=== PATIENT | female | born 1990 | race Caucasian/White ===

== ENCOUNTER 2023-08-17 14:47 | Outpatient (OUT) | payer MEDICAID, SELFPAY ==
[2023-08-17 15:22] LABS: Basophils Absolute Auto 0.1 10^3/uL (0.0-0.1); Basophils Percent Auto 0.5 % (0.2-2.0); Eosinophils Absolute Auto 0.2 10^3/uL (0.0-0.7); Eosinophils Percent Auto 1.3 % (0.9-7.0); Hematocrit 37.9 % (36.0-48.0); Hemoglobin 12.6 g/dL (12.0-16.0); Immature Granulocytes Abs Auto 0.03 10^3/uL (0.00-0.03); Immature Granulocytes Pct Auto 0.2 % (0.0-0.5); Lymphocytes Absolute Auto 3.2 10^3/uL (1.2-3.8); Lymphocytes Percent Auto 25.1 % (20.5-60.0); Mean Corpuscular HGB Conc 33.2 g/dL (29.9-35.2); Mean Corpuscular Volume 90.2 fL (81.0-99.0); Mean Platelet Volume 10.5 fL (9.5-13.5); Monocytes Absolute Auto 1.1 10^3/uL (0.3-0.8); Monocytes Percent Auto 8.8 % (1.7-12.0); Neutrophils Absolute Auto 8.2 10^3/uL (1.4-6.5); Neutrophils Percent Auto 64.1 % (43.0-75.0); Platelet Count 276 10^3/uL (150-450); Red Cell Distribution Width 12.4 % (11.0-15.0); White Blood Count 12.8 10^3/uL (4.0-11.0)
[2023-08-17 15:32] LABS: Partial Thromboplastin Time 28.2 sec (22.3-36.2); Prothrombin Time 10.6 sec (9.0-11.6)
[2023-08-17 15:35] LABS: Estimated Average Glucose 111 mg/dL; Glycohemoglobin A1C 5.5 % (4.5-6.2)
[2023-08-17 15:44] LABS: Free T4 0.97 ng/dL (0.76-1.46)
[2023-08-17 15:46] LABS: HCG Quantitative <1 mIU/mL; Thyroid Stimulating Hormone 1.048 uIU/mL (0.358-3.740)
--- NOTE | 2023-08-17 16:11 | US_ITS ---
The [address] [address] Patient Name: PERLA IBANEZ MRN: [id number] date: 1990 Sex: F Assigned Patient Location: US Current Patient Location: Accession/Order Number: [id number] Exam Date: 08/17/2023 16:20 Report Date: 08/18/2023 14:12 At the request of: JUAN TOM Procedure: US pelvis w/ transvaginal EXAM: Pelvic ultrasound HISTORY: . MENORRHAGIA WITH REGULAR CYCLE N92.0 . COMPARISON: None. TECHNIQUE: Transabdominal and transvaginal scanning was performed FINDINGS: Scanning of the pelvis demonstrates an anteverted uterus measuring 9.6 x 4.6 x 5.7 cm. Endometrial complex measures 6 mm. Nabothian cyst is noted within the cervix. Right ovary measures 2.5 x 2.3 x 1.9 cm. Color-flow is noted. No masses are noted. Left ovary measures 4.2 x 2 x 2.3 cm. Color-flow is noted. There is a 1.5 x 2 cm simple cyst in the left ovary. No fluid is noted in the cul-de-sac. US/US pelvis w/ transvaginal IMPRESSION: 1. Normal-appearing uterus and endometrial complex. 2. Normal right ovary. 3. 2 cm simple cyst within the left ovary. Electronically authenticated by: JOAO RIVERS Date: 08/18/2023 14:12
== END 2023-08-17 14:48 | disposition home or self-care (01) ==
PROVIDERS: Family Provider Family Medicine; Visit Provider Physician Assistant
DX: N92.0 Excessive and frequent menstruation with regular cycle (principal); N83.292 Other ovarian cyst, left side
CPT/HCPCS: 36415; 76830; 76856; 83036; 84439; 84443; 84702; 85025; 85610; 85730

== ENCOUNTER 2024-02-10 11:10 | Outpatient (RCR) | payer MEDICAID, SELFPAY ==
[2024-02-10 12:31] LABS: Alanine Aminotransferase 18 U/L (14-59); Albumin Globulin Ratio 0.9; Albumin Level 3.8 g/dL (3.4-5.0); Alkaline Phosphatase 62 U/L (46-116); Aspartate Amino Transferase 18 U/L (15-37); Bilirubin Direct 0.1 mg/dL (0.0-0.2); Bilirubin Total 0.5 mg/dL (0.2-1.0); Globulin 4.2 g/dL
[2024-02-11 08:10] LABS: AFP, Serum, Tumor Marker 2.1 ng/mL (0.0-6.4)
== END 2024-02-29 10:43 | disposition home or self-care (01) ==
LOC: LAB 11:10
PROVIDERS: Family Provider Family Medicine; PCP Nurse Practitioner Family
DX: B18.2 Chronic viral hepatitis C (principal)
CPT/HCPCS: 36415; 80076; 82105; 87522

== ENCOUNTER 2024-04-19 13:59 | Emergency (ER) | payer MEDICAID, SELFPAY ==
[2024-04-19 14:05] VITALS: BP 101/69; PULSE 103; TEMP 36.8; O2SAT 100; BMI 32.1
--- NOTE | 2024-04-19 14:11 | ED_ITS ---
HPI - Wound/Laceration General Chief Complaint: Wound/Laceration Stated Complaint: CUT RIGHT HAND Time Seen by Provider: 04/19/24 14:00 Source: patient Mode of arrival: walk-in Limitations: no limitations History of Present Illness HPI narrative: Patient is a 34-year-old [id number] female who presents to the ER for evaluation of a laceration to the palmar aspect of the right hand just proximal to the MCP joint of the thumb. Bleeding is well-controlled. Unknown last tetanus. Patient states she was cutting onions at work and the knife slipped. She does not wish to file a Workmen's Comp. claim. Related Data Allergies Allergy/AdvReac Type Severity Reaction Status Date / Time No Known Drug Allergies Allergy Verified 04/19/24 14:05 Review of Systems ROS Constitutional Denies: fever or chills Respiratory Denies: cough Gastrointestinal Denies: nausea or vomiting Musculoskeletal Reports: extremity pain Integumentary/Breast Denies: rash Neurological Denies: headache, numbness in extremities or weakness in extremities Hematologic/Lymphatic Denies: easy bruising or easy bleeding PFSH PFSH Social History Little interest or pleasure in doing things: not at all Feeling down, depressed, or hopeless: not at all Exam Narrative Exam Narrative: Gen.: Awake, alert, in no distress Head: Normocephalic, atraumatic ENT: Moist mucous membranes Respiratory: No respiratory distress Extremities: Normal flexion and extension of the IP joint of the right thumb. 2 cm laceration noted on the palm of the hand just proximal to the right MCP joint. No subcutaneous tissue exposure. No active bleeding. No visualized tendon or bony exposure. No evidence of tendon laceration. Psych: Normal mood and affect Neuro: No focal neuro deficit Skin: Warm, dry Constitutional Vital Signs, click to edit/add: Last Vital Signs Temp 98.2 F 04/19/24 14:05 Pulse 103 H 04/19/24 14:05 Resp 20 04/19/24 14:05 BP 101/69 04/19/24 14:05 Pulse Ox 100 04/19/24 14:05 O2 Del Method Room Air 04/19/24 14:05 Course Vital Signs Vital signs: Vital Signs Temperature 98.2 F 04/19/24 14:05 Pulse Rate 103 H 04/19/24 14:05 Respiratory Rate 20 04/19/24 14:05 Blood Pressure 101/69 04/19/24 14:05 Pulse Oximetry 100 04/19/24 14:05 Oxygen Delivery Method Room Air 04/19/24 14:05 Temperature 98.2 F 04/19/24 14:05 Pulse Rate 103 H 04/19/24 14:05 Respiratory Rate 20 04/19/24 14:05 Blood Pressure 101/69 04/19/24 14:05 Pulse Oximetry 100 04/19/24 14:05 Oxygen Delivery Method Room Air 04/19/24 14:05 MDM - Wound/Laceration MDM Narrative Medical decision making narrative: X-rays were obtained of the right hand, no evidence of acute process. Laceration was repaired without difficulty. Please see procedure note for details. Tetanus updated in the emergency department. Sutures removed with PCP in 8 to 10 days. Patient was reminded that she can file a Workmen's Comp. claim later if she changes her mind. Wound care encouraged for home. Laceration repair: Done under sterile conditions. The use of Shur-Clens prep the area. Local injection with lidocaine 1% was used, approximately 3 cc. The wound was irrigated copiously with normal saline. The wound was explored there was no evidence of foreign material. The laceration was approximated with 4-0 nylon. 3 simple interrupted sutures were placed. Patient tolerated the procedure well. The patient was neurovascularly intact post. the patient had bacitracin applied to the laceration and a dry sterile dressing was place. The patient will need to follow-up in the next 8-10 days for removal SUPERVISED APC VISIT, PHYSICIAN ATTESTATION: Based on the medical record the care appears appropriate. ? Medical Records Attestation: I reviewed the patient's medical records. Imaging Data XR hand: Attestation: I have reviewed the pertinent imaging results. Discharge Plan Discharge Chief Complaint: Wound/Laceration Clinical Impression: Laceration of right hand Patient Disposition: Home, Self-Care Time of Disposition Decision: 14:15 Condition: Good Print Language: Macedonian Instructions: Laceration (ED) Additional Instructions: Sutures removed in 8-10 days with your doctor or urgent care Referrals: FRANCISCO J JIANG [Primary Care Provider] - 1 week
--- OUTSIDE RECORDS SUMMARY | 2024-04-19 14:15 | XMS_ITS | CCD ---
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 Name Role Phone Unavailable Primary Care Provider UnavailERIKA Cummins Attending Unavailable Unavailable Primary Care Provider UnavailGeovanni Bravo Primary Care Physician [phone] Elise GODINEZ Primary Care Physician [phone] Belén Giles Unavailable Unavailable ROBUCK, TAMARA Martin Attending Unavailable ROBCHAPARRITA, TAMARA Martin Attending Unavailable Kojo CALVIN Attending Unavailable NONE, XXXX Referring Unavailable SALAMPadmini Attending Unavailable KERRYAMPadmini Admitting Unavailable ROBUCK, TAMARA Elise E Attending Unavailable ROBUCK, TAMARA Elise E Admitting Unavailable ROBUCK, TAMARA Martin Attending Unavailable ROBUCK, TAMARA Olivares E Admitting Unavailable Son Oviedo Attending Unavaila ble TABITHA, TAMARA Martin Referring Unavailable KERRYAMPadmini Attending Unavailable ROBUCK, TAMARA Martin Attending Unavailable ROBUCK, TAMARA Martin Attending Unavailable Son Ov[place]o MD Unavailable [phone] LEORA CLEANING Attending Unavailable LEORA CLEANING Attending Unavailable RODDENBERRY, CIARRA E Referring Unavailabl e RODDENBERRY, CIARRA E Referring Unavailabl e RODDENBERRY, CIARRA E Attending Unavailabl e RODDENBERRY, CIARRA E Referring Unavailabl e TAMMY BARRETT Attending Unavailable RODDENBERRY, CIARRA E Referring Unavailabl e RODDENBERRY, CIARRA E Attending Unavailabl e RODDENBERRY, CIARRA E Referring Unavailabl e Allergies Allergy Classification Reported Allergen(s) Allergy Type Date of Onset Reaction(s) Facility (1 source) No Known Medication Allergies; Translations: [No Known Medication Allergies] Propensity to adverse reactions (disorder) [facility] Rep[facility] Medications Current Medications Medication Drug Class(es) Dates Sig (Normalized) Sig (Original) buprenorphine 2 mg / naloxone 0.5 mg sublingual film (20 sources) Partial Opioid Agonist, Opioid Antagonist Start: 06-18-2023 buprenorphine-nal oxone (SUBOXONE) 2-0.5 mg film Dissolve 2 Film under the tongue once daily. 06/18/2023 Active Start: 04-30-2022 Suboxone 8 mg- 2 mg sublingual film 1 film, SubLingual, Daily, Refill(s) 0 Start Date: 04/30/22 Status: Ordered Buprenorphine HCl-Naloxone HCl (SUBOXONE SL) (2 sources) Buprenorphine HCl-Naloxone HCl (SUBOXONE SL) Place 0.8 mg under the tongue 0 Active cyclobenzaprine hydrochloride 10 mg oral tablet (13 sources) Muscle Relaxant Start: 08-28-19 take 1 tablet by mouth twice daily as needed for muscle spasms cyclobenzaprine 10 mg Tab 10 mg = 1 tab(s), Oral, BID, PRN for spasm, # 60 tab(s), Refills(s) 5, Pharmacy: [facility], 173, cm, 08/27/22 14:47:00 EDT, Height/Length Dosing, 138.5, kg, 08/27/22 14:47:00 EDT, Weight Dosing Start Date: 08/27/22 Status: Ordered Start: 06-15-2022 take 1 tablet by dorcas th once daily in the evening as needed for muscle spasms cyclobenzaprine 10 mg Tab 10 mg = 1 tab(s), Oral, qPM, PRN for spasm, # 30 tab(s), Refills(s) 2, Pharmacy: [facility], 173, cm, 06/15/22 14:50:00 EDT, Height/Length Dosing, 144.3, kg, 06/15/22 14:50:00 EDT, Weight Dosing Start Date: 06/15/22 Status: Ordered Start: 05-05-2022 take 1 tablet by dorcas th three times daily as needed for muscle spasms cyclobenzaprine 10 mg Tab 10 mg = 1 tab(s), Oral, TID, PRN for spasm, # 30 tab(s), Refills(s) 1, Pharmacy: [facility], 173, cm, 04/30/22 15:30:00 EST, Height/Length Dosing, 145.8, kg, 04/30/22 15:30:00 EST, Weight Dosing Start Date: 05/05/22 Status: Ordered 0.5 ml dulaglutide 1.5 mg/ml auto-injector (11 sources) GLP-1 Receptor Agonist Start: 06-15-2023 inject 0.75 mg by subcutaneous injection every week TRULICITY 0.75 mg/0.5 mL pen injector Inject 0.75 mg subcutaneously one time a week. 06/15/2023 Active Start: 05-26-2023 inject 1.5 mg by sub cutaneous injection every week Trulicity Pen 1.5 mg/0.5 mL subcutaneous solution 1.5 mg, SubCutaneous, qWeek, # 12 EA, Refills(s) 4, Pharmacy: [facility]/pharmacy #[id number], 173, cm, 04/20/23 16:40:00 EST, Height/Length Dosing, 118.8, kg, 04/20/23 16:40:00 EST, Weight Dosing Start Date: 05/26/23 Status: Ordered Start: 04-20-2023 inject 0.75 mg by toscano bcutaneous injection every week Trulicity Pen 0.75 mg/0.5 mL subcutaneous solution 0.75 mg, SubCutaneous, qWeek, # 12 EA, Refills(s) 3, Pharmacy: [facility]/pharmacy #[id number], 173, cm, 04/20/23 16:40:00 EST, Height/Length Dosing, 118.8, kg, 04/20/23 16:40:00 EST, Weight Dosing Start Date: 04/20/23 Status: Ordered {21 (Ethinyl Estradiol 0.035 MG / norgestimate 0.25 MG Oral Tablet) / 7 (Inert Ingredients 1 MG Oral Tablet) } Pack [Sprintec 28 Day] (2 sources) Progestin, Estrogen Start: 04-20-2023 Sprintec oral tablet 1 tab(s), Oral, Daily, 84 tab(s), Refill(s) 4, [facility]/pharmacy #[id number], 173, cm, 04/20/23 16:40:00 EST, Height/Length Dosing, 118.8, kg, 04/20/23 16:40:00 EST, Weight Dosing Start Date: 04/20/23 Status: Ordered glecaprevir 100 mg / pibrentasvir 40 mg oral tablet (6 sources) Start: 07-29-2023 End: 10-05-2023 take 3 tablets by mouth once daily at mealtime glecaprevir-pibrentasv ir (MAVYRET) 100-40 mg tablet Take 3 tablets by mouth once daily with food. 168 tablet 0 07/29/2023 10/05/2023 Active hydroCHLOROthiazide 25 mg oral tablet (15 sources) Thiazide Diuretic Start: 04-20-2023 take 1 tablet by mouth once daily hydroCHLOROthiazide 25 mg tablet Take 25 mg by mouth once daily. 04/20/2023 Active Start: 08-27-2022 take 1 tablet by dorcas th once daily hydrochlorothiazide 25 mg Tab 25 mg = 1 tab(s), Oral, Daily, # 90 tab(s), Refills(s) 3, Pharmacy: [facility], 173, cm, 08/27/22 14:47:00 EDT, Height/Length Dosing, 138.5, kg, 08/27/22 14:47:00 EDT, Weight Dosing Start Date: 08/27/22 Status: Ordered levonorgestrel 1.5 mg oral tablet (10 sources) Progestin, Progestin-containing Intrauterine Device Start: 04-20-2023 take 1 tablet by mouth once daily levonorgestrel (PLAN B ONE-STEP) 1.5 mg tab Take 1.5 mg by mouth once daily. 04/20/2023 Active lisinopril 40 mg oral tablet (20 sources) Angiotensin Converting Enzyme Inhibitor Start: 05-13-2022 take 1 tablet by mouth once daily lisinopril 30 mg Tab 30 mg = 1 tab(s), Oral, Daily, # 30 tab(s), Refills(s) 1, Pharmacy: [facility], 173, cm, 05/13/22 14:52:00 EDT, Height/Length Dosing, 142.9, kg, 05/13/22 14:52:00 EDT, Weight Dosing Start Date: 05/13/22 Status: Ordered Start: 04-30-2022 take 1 tablet by dorcas th once daily lisinopril 20 mg Tab 20 mg = 1 tab(s), Oral, Daily, # 30 tab(s), Refills(s) 0, Pharmacy: [facility], 173, cm, 04/30/22 15:30:00 EST, Height/Length Dosing, 145.8, kg, 04/30/22 15:30:00 EST, Weight Dosing Start Date: 04/30/22 Status: Ordered Start: 04-30-2022 take 1 tablet by dorcas th once daily lisinopril (ZESTRIL) 40 mg tablet Take 40 mg by mouth once daily. 04/30/2022 Active sulfamethoxazole 800 mg / trimethoprim 160 mg oral tablet (1 source) Dihydrofolate Reductase Inhibitor Antibacterial, Sulfonamide Antimicrobial Start: 10-26-2018 End: 11-05-2018 take 1 tablet by mouth twice daily sulfamethoxazole-trimethoprim (BACTRIM DS) 800-160 MG per tablet Take 1 tablet by mouth 2 times daily for 10 days 20 tablet 0 10/26/2018 11/05/2018 Active Completed/Discontinued Medications Medication Drug Class(es) Dates Sig (Normalized) Sig (Original) cephalexin 500 mg oral capsule (2 sources) Cephalosporin Antibacterial Start: 10-26-2018 End: 11-08-2019 take 1 capsule by mouth four times daily cephALEXin (KEFLEX) 500 MG capsule Take 1 capsule by mouth 4 times daily 40 capsule 0 10/26/2018 11/08/2019 Discontinued (Therapy completed) nitroglycerin 0.4 mg sublingual tablet (2 sources) Nitrate Vasodilator End: 11-08-2019 nitroGLYCERIN (NITROSTAT) 0.[address] 0.4 mg under the tongue every 5 minutes as needed for Chest pain up to max of 3 total doses. If no relief after 1 dose, call 911. 0 11/08/2019 Discontinued (Therapy completed) Problems Active Problems Problem Classification Problem Date Documented Date Episodic/Chronic Anxiety disorders (16 sources) Posttraumatic stress disorder; Translations: [Post-traumatic stress disorder, unspecified] Onset: 04-30-2022 Chronic Contraceptive and procreative management (1 source) Contraception status; Translations: [Encounter for contraceptive management, unspecified] Onset: 04-20-2023 Episodic Diabetes mellitus without complication (5 sources) Impaired fasting glycemia; Translations: [Impaired fasting glucose] Onset: 06-15-2022 Episodic Essential hypertension (20 sources) Essential hypertension; Translations: [Essential (primary) hypertension] Onset: 04-30-2022 Chronic Hepatitis (9 sources) Chronic hepatitis C; Translations: [Chronic viral hepatitis C] Onset: 07-23-2023 07-23-2023 Chronic Hepatitis (9 sources) Viral hepatitis C; Translations: [Unspecified viral hepatitis C without hepatic coma] Onset: 07-30-2022 Episodic Immunizations and screening for infectious disease (3 sources) Hepatitis C antibody test positive 06-04-2022 Episodic Other nervous system disorders (1 source) Paresthesia; Translations: [Paresthesia of skin] Onset: 04-30-2022 Episodic Other nervous system disorders (6 sources) Paresthesia of left lower limb 04-30-2022 Episodic Other nutritional; endocrine; and metabolic disorders (15 sources) Body mass index 40+ - severely obese; Translations: [Body mass index (BMI) 45.0-49.9, adult] Onset: 04-30-2022 Chronic Other nutritional; endocrine; and metabolic disorders (2 sources) Obese class II; Translations: [Body mass index (BMI) 39.0-39.9, adult] Onset: 04-20-2023 Chronic Other nutritional; endocrine; and metabolic disorders (4 sources) Morbid obesity; Translations: [Morbid (severe) obesity due to excess calories] Onset: 04-20-2023 Chronic Other nutritional; endocrine; and metabolic disorders (2 sources) Body mass index 30+ - obesity 04-20-2023 Chronic Other screening for suspected conditions (not mental disorders or infectious disease) (1 source) Encounter for screening for malignant neoplasm of cervix; Translations: [Screening for malignant neoplasm of cervix done] Onset: 10-22-2022 Episodic Residual codes; unclassified (2 sources) Localized edema; Translations: [Localized edema] Onset: 04-30-2022 Episodic Residual codes; unclassified (6 sources) Edema of left lower limb 04-30-2022 Episodic Substance-related disorders (20 sources) Nicotine dependence; Translations: [Nicotine dependence, unspecified, uncomplicated] Onset: 04-30-2022 Chronic Unclassified (1 source) Sprain of right foot; Translations: [Sprain of right foot, initial encounter] Unclassified (3 sources) Cancer cervix screening status 10-22-2022 Unclassified (2 sources) Patient encounter status 04-20-2023 Past or Other Problems Problem Classification Problem Date Documented Da te Episodic/Chronic Skin and subcutaneous tissue infections (1 source) Abscess; Translations: [Abscess] Episodic Viral infection (1 source) Disease caused by 2019-nCoV; Translations: [COVID-19] Results Test Name Value Interpretation Reference Range Facility [facility] 07-30-2023 CNOV Office Visit (GASTA5 ) PERLA SPANN ([id number]) 1990 F Date Time Provider Department 07/30/23 1:30 PM CIARRA COTTON GASTA5 During your visit today, we recorded the following information about you: Temperature Pulse Blood pressure Weight 98.5 degrees 96/minute 122/60 109.8 kg Height 1.727 m Ciarra Cotton APRN.[facility] 08/01/2023 2:23 PM Signed NAME: Perla Spann CLINIC NO: [id number] REFERRING PHYSICIAN: Ciarra Cotton PRESENTING COMPLAINT: HCV follow up HPI: Perla Spann is a 33 year old female with unknown PMHx is here on follow up for chronic HCV. [facility] with me: 07/02/23 At [facility]: IMPRESSION Perla Spann is a 33 year old year old female with unknown PMHx who presents with HCV. Risk factors include IVDU and she is treatment naive. Will obtain updated HCV quant, genotype, and serologic evaluation. Will also obtain updated imaging and Fibroscan for further steatosis/fibrosis staging. PLAN Chronic HCV: - repeat HFP - HCV quant, HCV genotype, HIV 1/2 COMBO - serologic evaluation - RUQ US - Fibroscan Since [facility]: Overall, feeling well States was told locally that given suspicion of cirrhosis from prior workup, should be evaluated for HCV treatment at [facility] LFTs mildly elevated RUQ US with increased echogenicity of liver Mavyret ordered, not yet started ETOH use: Last use 4 yrs ago. Nutrition: does not adhere to specific diet but tries to reduce saturated fat; sodium. With constant right sided abdominal pain 3/10, dull ache Sitting in one position worsens pain With constipation daily Somewhat helps with laxatives Attributes to suboxone use Most recent blood work: 07/23/23 ALP WNL, AST/ALT 53/69 Preserved synthetic liver function Plt WNL Fibroscan today: CAP 227; kpa 10.0, IQR 17% Denies jaundice,nausea, vomiting, diarrhea, hematochezia, hematemesis, ascites, episodes of confusion. IMAGING: RUQ US 07/23/23: IMPRESSION: 1. Increased echogenicity of the liver, compatible with hepatic steatosis. No focal hepatic mass. 2. No sonographic evidence of cholelithiasis or acute cholecystitis. No biliary ductal dilation. 3. Normal sonographic appearance of the spleen. No splenomegaly or focal splenic mass. RESULT: Pancreas: Normal sonographic appearance. Portions obscured: tail Liver: Echotexture: Normal, homogeneous. Echogenicity: Increased Surface contour: Smooth Lesions: None. Biliary: No intrahepatic biliary duct dilation. CBD: 0.4 cm at the hilum. Gallbladder: Normal caliber -Contents: No cholelithiasis -Wall: Normal -Other: No pericholecystic fluid. Right Kidney: The right kidney measures 10.8 cm in craniocaudal dimension. No renal calculus or hydronephrosis is seen. Ascites: None. Spleen: The craniocaudal length of the spleen is 11.5 cm, normal. There are no splenic lesions. The left kidney measures 10.7 cm craniocaudal dimension. No renal calculus or hydronephrosis is seen. REVIEW OF SYSTEMS GENERAL: No unexplained weight changes or fevers. GASTROINTESTINAL: Negative for rectal bleeding or black tarry stools. MUSCULOSKELETAL: Negative for unexplained joint pains, dislocations or fractures. NEUROLOGIC: Negative for unexplained weakness or vertigo. SKIN: Negative for new lesions or rashes. Current Outpatient Medications Medication Sig Dispense Refill glecaprevir-pibrentas vir (MAVYRET) 100-40 mg tablet Take 3 tablets by mouth once daily with food. 168 tablet 0 hydroCHLOROthiazide 25 mg tablet Take 25 mg by mouth once daily. buprenorphine-naloxon e (SUBOXONE) 2-0.5 mg film Dissolve 2 Film under the tongue once daily. TRULICITY 0.75 mg/0.5 mL pen injector Inject 0.75 mg subcutaneously one time a week. lisinopril (ZESTRIL) 40 mg tablet Take 40 mg by mouth once daily. levonorgestrel (PLAN B ONE-STEP) 1.5 mg tab Take 1.5 mg by mouth once daily. No current facility-administered medications for this visit. ALLERGIES No Known Allergies Social History Tobacco Use Smoking status: Never Passive exposure: Never Smokeless tobacco: Current Tobacco comments: Vape Substance Use Topics Alcohol use: Never Drug use: Never No past medical history on file. @SHX@ No family history on file. PHYSICAL EXAM There were no vitals taken for this visit. General Appearance: Well appearing, alert, in no acute distress, well-hydrated, well nourished. Eyes: conjunctiva and sclera normal Abdomen: not distended Extremities: no cyanosis or edema Skin: no jaundice, no spider angiomas, no palmar erythema Neuro:alert, oriented x 3, pleasant and in no acute distress Recent Labs: Hemoglobin (g/dL) Date Value 07/23/2023 13.9 Hematocrit (%) Date Value 07/23/2023 42.8 WBC (k/uL) Date Value 07/23/2023 12.94 Glucose (mg/dL) Date Value 07/23/2023 82 Potassium (mmol/L) Date Value 07/23/2023 4.4 So (more content not included)... Normal [facility] Liver ultrasound attenuation by transient elastographyon 07-30-2023 Patient fasting for 3 hours:Yes Fibroscan was performed on July 30, 2023, by Cristin Buenrostro LPN and results are interpreted by Rebecca Watts APRN.GEOLOGICAL ENGINEER Indication: Hepatitis C Please refer to get images report for individual readings Number of readings: 10 IQR %: 17 E (kpa): 10.0 CAP: 227 Impression The reading was adequate. FS=10.0 kPA. The CAP score is 227 and corresponds to steatosis grade of S0. This reading corresponds: A 43% chance of stage 0-2 fibrosis A 58% chance of stage 3-4 fibrosis (advanced fibrosis) A 20% chance of stage 4 fibrosis (cirrhosis).A kPa >20 indicates a high likelihood of stage 4 fibrosis/cirrhosis, consider further testing to confirm. Rebecca Watts APRN.GEOLOGICAL ENGINEER Hepatitis C Fibroscan Fibrosis Risk <7 kPA = F0-F2 93%, F3+F4 7%, F4 <1% <10 kPA = F0-F2 88%, F3+F4 12%, F4 1.7% 10-15 kPA = F0-F2 43%, F3+F4 58%, F4 20% >15 kPA = F0-F2 16%, F3+F4 84%, F4 63% Grade CAP value up to 237 dB/M corresponds to S0 (< 10 % Fat) CAP value between (238 - 258 dB/M) corresponds to S1 (>/= 11 % Fat) CAP value between (259 - 289 dB/M) corresponds to S2 (>/= 33 % Fat) CAP value > 290dB/M corresponds to S3 (>/= 67 % Fat) stage 0 ( S0:< 10 % steatosis) stage 1 (>/= S1: 11%-33% steatosis) stage 2 (>/= S2: 34%-66% steatosis) stage 3 (>/= S3: > 66% steatosis) Reference Roland Y, Pete Q, Roland T, Marcy J, Roland H, Henrik T. Controlled attenuation parameter for assessment of hepatic steatosis grades: a diagnostic meta-analysis. Int J Clin Exp Med. 2015 Nov 15;8(10):00633-19. PMID: [id number]; PMCID: [id number]. Stephanie M, Margarita LEXI, Rebeccar-Luis M, Mateo F, Salome J, Magdaleno O, Hector F, Ting M, Aubrey G, Re A, Deepti E, Cyn L, Bridgett G, Wenceslao A, Hildebran U, Lombardo S, Herlinda P, Rosalindao V, de Coni V, Jarod M, Sergio OCASIO. Refining the Baveno elastography criteria for the definition of compensated advanced chronic liver disease. J Hepatol. 2020;74(5):6041-3802. doi: 10.1016/j.jhep.2020.1 1.050. Epub 2019Feb 06. PMID: 52816572. [facility] Radiology Study observation (narrative) Leo toscano [facility] 07-29-2023 [facility] Telephone (GASTA5) PERLA SPANN ([id number]) 1990 F Date Time Provider Department 07/29/23 CIARRA COTTON GASTMinh During your visit today, we recorded the following information about you: Anamaria Caal RN 07/29/2023 1:41 PM Signed ----- Message from Ciarra Cotton APRN.GEOLOGICAL ENGINEER sent at 07/29/2023 1:39 PM EDT ----- Kamar, Please advise patient that she does have active hep C. Mavyret has been prescribed and she will be contacted once approved by specialty pharmacy. Mavyret duration is 2 months in total. Mavyret will be taken daily. Please advise to get blood work at the end of each month while on treatment. Her ultrasound indicates fatty liver. WE will obtain the Fibroscan for further evaluation. Please advise to be 3 hours fasting prior to that. The rest of her blood work does not indicate other causes of liver disease which is good news. She is not immune to HAV/HBV; would advise Twinrix vaccine series. We can discuss further at her upcoming visit. Thanks, Anamaria Lind RN 07/29/2023 1:56 PM Signed Nurse called the patient. Patient confirmed name and . Nurse relayed the information to the patient. Patient is worried about having cirrhosis, but nurse informed her that US states fatty liver and the fibroscan will give us another way to test whether there is cirrhosis. Patient expressed understanding and had no questions or concerns. Anamaria Caal RN July 29, 2023 1:55 PM Allergies As of Date: 07/29/2023 (No Known Allergies) Date Reviewed: 07/02/2023 Reviewed by: Anne Jones LPN - Fully Assessed Prescriptions as of 07/29/2023 - glecaprevir-pibrentas vir (MAVYRET) 100-40 mg tablet Take 3 tablets by mouth once daily. Take with food. - hydroCHLOROthiazide 25 mg tablet Take 25 mg by mouth once daily. - buprenorphine-naloxon e (SUBOXONE) 2-0.5 mg film Dissolve 2 Film under the tongue once daily. - TRULICITY 0.75 mg/0.5 mL pen injector Inject 0.75 mg subcutaneously one time a week. - lisinopril (ZESTRIL) 40 mg tablet Take 40 mg by mouth once daily. - levonorgestrel (PLAN B ONE-STEP) 1.5 mg tab Take 1.5 mg by mouth once daily. Problem List As Of Date: 07/29/2023 (None) Encounter Status:Closed by ANAMARIA CAAL on 07/29/23 Normal [facility] ALLA BY IFA WITH REFLEXOrdere d By: Cherri Link on 07-27-2023 Interpretation and review of laboratory results Normal [facility] Nuclear Ab Ql (S) Negative Negative [facility] Comment on above: Anti-nuclear antibod y test is used as an aid in diagnosis of systemic autoimmune diseases. Where positive and clinically warranted, follow-up using disease-specific testing is recommended. Low positive titers are not uncommon with advanced age, certain chronic infections, and malignancies among others. Test methodology: Indirect fluorescence immunoassay (IFA) using HEp-2 cells. [facility] HCV genotype LALITA+probe NomOr dered By: Bryn Gallardo on 07-27-2023 Interpretation and review of laboratory results Abnormal [facility] HEPATITIS C GENOTYPEOrdered By: Bryn Gallardo on 07-27-2023 HCV genotype LALITA+probe Nom Genotype 3 Abnormal [facility] LIVER FIBROSIS AND ACTIVITYo n 07-27-2023 [id number] [Mass/Vol] 390 mg/dL High 110 - 270 mg/dL [facility] ALT [Catalytic activity/Vol] 79 U/L High 10 - 35 U/L [facility] Apolipoprotein A-I [Mass/Vol] 162 mg/dL 124 - PINF mg/dL [facility] Bilirubin [Mass/Vol] 0.6 mg/dL 0.2 - 1 .3 mg/dL [facility] Fibrosis Interpretation Minimal Fibrosis [facility] Comment on above: Fibrosis Interpretat ion Table: FibroTest Score: >=0 and <=0.21 - Metavir Score: F0 No Fibrosis FibroTest Score: >0.21 and <=0.27 - Metavir Score: F0-F1 No Fibrosis FibroTest Score: >0.27 and <=0.31 - Metavir Score: F1 Minimal Fibrosis FibroTest Score: >0.31 and <=0.48 - Metavir Score: F1-F2 Minimal Fibrosis FibroTest Score: >0.48 and <=0.58- Metavir Score: F2 Moderate Fibrosis FibroTest Score: >0.58 and <=0.72 - Metavir Score: F3 Advanced Fibrosis FibroTest Score: >0.72 and <=0.74 - Metavir Score: F3-F4 Advanced Fibrosis FibroTest Score: >0.74 and <=1.00- Metavir Score: F4 Severe Fibrosis Fibrosis stage Ql F1-F2 [facility] Gamma glutamyl transferase [Catalytic activity/Vol] 62 U/L High 6 - 42 U/L [facility] Haptoglobin [Mass/Vol] 159 mg/dL 31 - 238 mg/dL [facility] Interpretation and review of laboratory results Abnormal [facility] Necroinflam Activity Interp Minimal Activity [facility] Comment on above: Necroinflammatory Ac tivity Interpretation Table: ActiTest Score: >=0 and <=0.17 - Metavir Score: A0 No activity ActiTest Score: >0.17 and <=0.29 - Metavir Score: A0-A1 No activity ActiTest Score: >0.29 and <=0.36 - Metavir Score: A1 Minimal activity ActiTest Score: >0.36 and <=0.52 - Metavir Score: A1-A2 Minimal activity ActiTest Score: >0.52 and <=0.60 - Metavir Score: A2 Significant activity ActiTest Score: >0.60 and <=0.62 - Metavir Score: A2-A3 Significant activity ActiTest Score: >0.62 and <=1.00 - Metavir Score: A3 Severe activity Necroinflammatory activity grade Ql A1-A2 [facility] The FibroTest-ActiTest is an algorithmic test developed and patented by [employer]. Testing is compliant with their technical recommendations. The reliability of results is dependent on compliance with the preanalytical and analytical conditions recommended by [employer]. The tests have to be deferred for: acute hemolysis, acute hepatitis, acute inflammation, extra hepatic cholestasis. The advice of a specialist should be sought for interpretation in chronic hemolysis and Gilbert's syndrome. The test interpretation is not validated in liver transplant patients. Isolated extreme values of one of the components should lead to caution in interpreting the results. In case of discordance between a biopsy result and a test, it is recommended to seek advice of a specialist. The causes of these discordances could be due to a flaw of the test or to a flaw in the biopsy: i.e. a liver biopsy has a 33% variability rate for one fibrosis stage. FibroTest is interpretable for chronic hepatitis B and C, alcoholic and non alcoholic steatosis. ActiTest is interpretable for chronic hepatitis B and C. This test was developed and its performance characteristics determined by [facility]'s [facility] [place] ([facility]). It has not been cleared or approved by the FDA. [facility] is regulated under CLIA as qualified to perform high-complexity testing. This test is used for clinical purposes. It should not be regarded as investigational or for research. [facility] Mitochondria Ab IF Ql (S)Ord ered By: Yuli Quiros on 07-27-2023 Mitochondria M2 Ab IA Qn (S) 1.6 NINF [facility] Mitochondria M2 Ab Ql (S) Negative Negative [facility] Comment on above: Anti-mitochondrial a ntibody test is used as an aid in diagnosis of primary biliary cholangitis. Clinical correlation is required. No Panel InformationOrdered By: Yuli Quiros on 07-27-2023 Interpretation and review of laboratory results Normal [facility] PHOSPHATIDYLETHANOL (PETH)on 07-27-2023 Laboratory report See Note [facility] Comment on above: Authorized individua ls can access the [facility] Enhanced Report using the following link: [email or web address] PEth 16:0/18.2 (PLPEth) <10 ng/mL [facility] Comment on above: Reference ranges are not well established. PEth 16:0/18:1 (POPEth) <10 ng/mL [facility] Comment on above: PEth 16:0/18:1 (ZAMORA th) Less than 10 ng/mL............Not detected Less than 20 ng/mL............Abstinence or light alcohol consumption 20 - 200 ng/mL................Moderate alcohol consumption Greater than 200 ng/mL........Heavy alcohol consumption or chronic alcohol use (Reference: Dedra Gómez and Nader Hawkins 2018 J. Forensic Sci) PEth Interpretation See Comment [facility] Comment on above: Phosphatidylethanol (PEth) is a group of phospholipids formed in the presence of ethanol, phospholipase D and phosphatidylcholine. PEth is known to be a direct alcohol biomarker. The predominant PEth homologues are PEth 16:0/18:1 (POPEth) and PEth 16:0/18:2 (PLPEth), which account for 37-46% and 26-28% of the total PEth homologues, respectively. PEth is incorporated into the phospholipid membrane of red blood cells and has a general half-life of 4-10 days and a window of detection of 2-4 weeks. However, the window of detection is longer in individuals who chronically or excessively consume alcohol. The limit of quantification is 10 ng/mL. Serial monitoring of PEth may be helpful in monitoring alcohol abstinence over time. PEth results should be interpreted in the context of the patient's clinical and behavioral history. Patients with advanced liver disease may have falsely elevated PEth concentrations (Marcela BOWMAN et al 2018, Alcoholism Clinical & Experimental Research). This test was developed and its performance characteristics determined by [facility]. It has not been cleared or approved by the U.S. Food and Drug Administration. This test was performed in a CLIA-certified laboratory and is intended for clinical purposes. Performed By: [facility] [address] [place] [address] Retail Attendant: Patrick Taylor MD, PhD CLIA Number: [id number] [facility] Smooth muscle Ab Ql (S)on Actin Smooth Muscle IgG Qualitative Negative Negative [facility] Actin Smooth Muscle IgG Quantitative 9 NINF [facility] Actin IgG test is used as an aid in diagnosis of autoimmune hepatitis. Clinical correlation is required. [facility] LKM ABon 07-26-2023 Liver kidney microsomal Ab IF (S) [Titer] <1:20 [facility] Comment on above: INTERPRETIVE INFORMA TION: Tubxg-Fgcnnv-Uvqhellqz Abs, IgG Liver-Kidney Microsome IgG antibody (anti-LKM), as detected by indirect immunofluorescent antibody (IFA) techniques, may be observed in patients with autoimmune hepatitis type 2 (AIH-2), AIH-2 associated with autoimmune tptplbiydsixdpsixz-gjwkkmarvle-qrqpglsryr dystrophy (APECED), viral hepatitis C or D, and some forms of drug-induced hepatitis. This IFA does not differentiate among the four types of LKM antibodies (LKM-1, LKM-2, LKM-3, and a fourth type that recognizes CY and CY antigens). Of these, anti-LKM-1 (cytochrome [id number]) IgG antibodies are considered specific for AIH-2. This test was developed and its performance characteristics determined by [facility]. It has not been cleared or approved by the [place] Food and Drug Administration. This test was performed in a CLIA certified laboratory and is intended for clinical purposes. Performed By: [facility] [address] [place] [address] Retail Attendant: Patrick Taylor MD, PhD CLIA Number: [id number] Liver kidney microsomal Ab I F (S) [Titer]on 07-26-2023 [facility] CBC W Auto Differential pane l (Bld)on 07-24-2023 Basophils (Bld) [#/Vol] 0.06 10*3/uL [facility] Basophils/100 WBC (Bld) 0.5 % [facility] Differential cell count method Nom (Bld) Auto [facility] Eosinophils (Bld) [#/Vol] 0.12 10*3/uL [facility] Eosinophils/100 WBC (Bld) 0.9 % [facility] Erythrocyte distribution width (RBC) [Ratio] 12.7 % 11.5 - 15.0 % [facility] Hematocrit (d) [Volume fraction] 42.8 % 36.0 - 46.0 % [facility] Hemoglobin (Bld) [Mass/Vol] 13.9 g/dL 11.5 - 15.5 g/dL [facility] Immature granulocytes (Bld) [#/Vol] 0.04 10*3/uL [facility] Immature granulocytes/100 WBC (Bld) 0.3 % [facility] Interpretation and review of laboratory results Abnormal [facility] Lymphocytes (Bld) [#/Vol] 3.02 10*3/uL [facility] Lymphocytes/100 WBC (Bld) 23.3 % [facility] MCH (RBC) [Entitic mass] 29.6 pg 26.0 - 34.0 pg [facility] MCHC (RBC) [Mass/Vol] 32.5 g/dL 30.5 - 36.0 g/dL [facility] MCV (RBC) [Entitic vol] 91.1 fL 80.0 - 100.0 fL [facility] Monocytes (Bld) [#/Vol] 0.91 10*3/uL [facility] Monocytes/100 WBC (Bld) 7.0 % [facility] Neutrophils (Bld) [#/Vol] 8.79 10*3/uL High [facility] Neutrophils/100 WBC (Bld) 68.0 % [facility] Nucleated RBC (Bld) [#/Vol] NINF [facility] Nucleated RBC/100 WBC (Bld) [Ratio] 0.0 % /100 WBC [facility] Platelet mean volume (Bld) [Entitic vol] 10.6 fL 9.0 - 12.7 fL [facility] Platelets (Bld) [#/Vol] 330 10*3/uL [facility] RBC (Bld) [#/Vol] 4.70 10*6/uL 3.90 - 5.2 0 m/uL [facility] WBC (Bld) [#/Vol] 12.94 10*3/uL High [facility] HCV RNA LALITA+probe Qnon 07-23 Interpretation and review of laboratory results Abnormal [facility] The Linear Range of this assay is 15 IU/ml to 100,000,000 IU/ml [facility] HEPATITIS A ANTIBODY, IGGon 07-24-2023 HAV IgG Ql (S) Negative [facility] Comment on above: No serological evide nce of immunity to Hepatitis A Virus. [facility] HEPATITIS C RNA QUANTIFICATI ON BY PCR, PLASMA/SERUMon 07-24-2023 HCV RNA LALITA+probe Qn Detected Abnormal HCV RNA not detected by PCR. [facility] HCV RNA LALITA+probe Qn [id number] High IU/mL [facility] HCV RNA LALITA+probe Qn 6.22 High Log IU/mL [facility] HIV 1+2 Ab IA Qlon 4 HIV 1 and 2 Ab IA.rapid Nom (S/P/Bld) [facility] Comment on above: Test not indicated. HIV 1+2 Ab+HIV1 p24 Ag IA Ql Non-Reactive Nonreactive [facility] HIV immunoassay testing algorithm interpretation (S/P/Bld) [Interp] [facility] Comment on above: No evidence of HIV-1 or HIV-2 infection. Should recent infection be suspected, repeat testing may be considered 2-3 weeks after this draw. [place] Rev. Code 3701.243(E): This information has been disclosed to you from confidential records protected from disclosure by state law. You shall make no further disclosure of this information without the specific, written, and informed release of the individual to whom it pertains or as otherwise permitted by state law. A general authorization for the release of medical or other information is not sufficient for the purpose of the release of HIV test results or diagnoses. [facility] A1AT SerPl-mCncon 07-23-2023 Alpha 1 antitrypsin [Mass/Vol] 210 mg/dL High 90-200 [facility] Comment on above: Order Comment: Speci men Type: BLOOD SPECIMENOrdering Facility: [facility] Address: [address] [place] [address] Performed By: #### 2 4321-2, 1825-9, 2064-4, 82831-0 ####[facility] LABCLIA [id number] [place] [address] [place] ALLA BY IFA WITH REFLEXon Nuclear Ab Ql (S) Negative Normal Negative [facility] Comment on above: Order Comment: Speci men Type: BLOOD SPECIMENOrdering Facility: [facility] Address: [address] [place] [address] Result Comment: Anti -nuclear antibody test is used as an aid in diagnosis of systemic autoimmune diseases. Where positive and clinically warranted, follow-up using disease-specific testing is recommended. Low positive titers are not uncommon with advanced age, certain chronic infections, and malignancies among others. Test methodology: Indirect fluorescence immunoassay (IFA) using HEp-2 cells. Performed By: #### A NAIFR ####[facility] LABCLIA [id number] [place] [address] [place] Basic metabolic 2000 panelon 07-23-2023 Anion gap [Moles/Vol] 14 mmol/L 9 - 18 mmol/L [facility] Calcium [Mass/Vol] 10.1 mg/dL 8.5 - 10. 2 mg/dL [facility] Chloride [Moles/Vol] 93 mmol/L Low 97 - 10 5 mmol/L [facility] CO2 [Moles/Vol] 24 mmol/L 22 - 30 mmol/L [facility] Creatinine [Mass/Vol] 1.03 mg/dL High 0.58 - 0.96 mg/dL [facility] GFR/1.73 sq M.predicted among non-blacks MDRD (S/P/Bld) [Vol rate/Area] 73 mL/min/{1.73_m2} - PINF [facility] Comment on above: Estimated Glomerular Filtration Rate (eGFR) is calculated using the 2020 CKD-EPI creatinine equation. This equation utilizes serum creatinine, sex, and age as parameters. The creatinine assay has traceable calibration to isotope dilution-mass spectrometry. Refer to KDIGO guidelines for clinical interpretation. In patients with unstable renal function, e.g. those with acute kidney injury, the eGFR may not accurately reflect actual GFR. Glucose [Mass/Vol] 82 mg/dL 74 - 99 mg/dL [facility] Comment on above: The [place] Diabete s Association (ADA) provides guidance for cutoff values for fasting glucose and random glucose. The ADA defines fasting as no caloric intake for at least 8 hours. Fasting plasma glucose results between 100 to 125 mg/dL indicate increased risk for diabetes (prediabetes). Fasting plasma glucose results greater than or equal to 126 mg/dL meet the criteria for diagnosis of diabetes. In the absence of unequivocal hyperglycemia, results should be confirmed by repeat testing. In a patient with classic symptoms of hyperglycemia or hyperglycemic crisis, random plasma glucose results greater than or equal to 200 mg/dL meet the criteria for diagnosis of diabetes. Reference: Standards of Medical Care in Diabetes 2016, [place] Diabetes Association. Diabetes Care. 2016.39(Suppl 1). Potassium [Moles/Vol] 4.4 mmol/L 3.7 - 5.1 mmol/L [facility] Sodium [Moles/Vol] 131 mmol/L Low 136 - 144 mmol/L [facility] Urea nitrogen [Mass/Vol] 15 mg/dL 7 - 21 mg/dL [facility] Anion gap [Moles/Vol] 14 mmol/L Normal 9-18 [facility] Comment on above: Order Comment: Speci men Type: BLOOD SPECIMENOrdering Facility: [facility] Address: [address] [place] [address] Performed By: #### 2 4321-2, 1824-10, 2063-05, 40220-7 ####[facility] LABCLIA [id number] [place] [address] [place] Calcium [Mass/Vol] 10.1 mg/dL Normal 8.5-10.2 [facility] Comment on above: Order Comment: Speci men Type: BLOOD SPECIMENOrdering Facility: [facility] Address: [address] [place] [address] Performed By: #### 2 4321-2, 1824-10, 2063-05, 14622-2 ####[facility] LABIA [id number] [place] [address] [place] Chloride [Moles/Vol] 93 mmol/L Low 97-105 [facility] Comment on above: Order Comment: Speci men Type: BLOOD SPECIMENOrdering Facility: [facility] Address: [address] [place] [address] Performed By: #### 2 4321-2, 1824-10, 2063-05, 26880-1 ####[facility] LABIA [id number] [place] [id number] [place] CO2 [Moles/Vol] 24 mmol/L Normal 22-30 [facility] Comment on above: Order Comment: Speci men Type: BLOOD SPECIMENOrdering Facility: [facility] Address: [address] [place] [address] Performed By: #### 2 4321-2, 1824-10, 2063-05, ####[facility] LABIA [id number] [place] [id number] [place] Creatinine [Mass/Vol] 1.03 mg/dL High 0.58-0.96 [facility] Comment on above: Order Comment: Winston coello Type: BLOOD SPECIMENOrdering Facility: [facility] Address: [address] [place] [address] Performed By: #### 2 4321-2, 1824-10, 2063-05, ####[facility] LABIA [id number] [place] [address] [place] Creatinine and Glomerular filtration rate.predicted panel (S/P/Bld) 73 mL/min/1.73m??? Normal >=60 [facility] Comment on above: Order Comment: Winston coello Type: BLOOD SPECIMENOrdering Facility: [facility] Address: [address] [place] [address] Result Comment: Jodi mated Glomerular Filtration Rate (eGFR) is calculated using the 2020 CKD-EPI creatinine equation. This equation utilizes serum creatinine, sex, and age as parameters. The creatinine assay has traceable calibration to isotope dilution-mass spectrometry. Refer to KDIGO guidelines for clinical interpretation. In patients with unstable renal function, e.g. those with acute kidney injury, the eGFR may not accurately reflect actual GFR. Performed By: #### 2 4321-2, 1824-10, 2063-05, ####[facility] LABIA [id number] [place] [id number] [place] Glucose [Mass/Vol] 82 mg/dL Normal 74-99 [facility] Comment on above: Order Comment: Winston coello Type: BLOOD SPECIMENOrdering Facility: [facility] Address: [address] [place] [address] Result Comment: The [place] Diabetes Association (ADA) provides guidance for cutoff values for fasting glucose and random glucose. The ADA defines fasting as no caloric intake for at least 8 hours. Fasting plasma glucose results between 100 to 125 mg/dL indicate increased risk for diabetes (prediabetes). Fasting plasma glucose results greater than or equal to 126 mg/dL meet the criteria for diagnosis of diabetes. In the absence of unequivocal hyperglycemia, results should be confirmed by repeat testing. In a patient with classic symptoms of hyperglycemia or hyperglycemic crisis, random plasma glucose results greater than or equal to 200 mg/dL meet the criteria for diagnosis of diabetes. Reference: Standards of Medical Care in Diabetes 2016, [place] Diabetes Association. Diabetes Care. 2016.39(Suppl 1). Performed By: #### 2 4321-2, 1824-10, 2063-05, 76976-5 ####[facility] LABCLIA [id number] [place] [address] [place] Potassium [Moles/Vol] 4.4 mmol/L Normal 3.7-5.1 [facility] Comment on above: Order Comment: Speci men Type: BLOOD SPECIMENOrdering Facility: [facility] Address: [address] [place] [address] Performed By: #### 2 432-2, 1824-10, 2063-05, 13638-7 ####[facility] LABIA [id number] [place] [id number] [place] Sodium [Moles/Vol] 131 mmol/L Low 136-144 [facility] Comment on above: Order Comment: Speci men Type: BLOOD SPECIMENOrdering Facility: [facility] Address: [address] [place] [address] Performed By: #### 2 432-2, 1824-10, 2063-05, 37191-6 ####[facility] LABIA [id number] [place] [id number] [place] Urea nitrogen [Mass/Vol] 15 mg/dL Normal 7-21 [facility] Comment on above: Order Comment: Speci men Type: BLOOD SPECIMENOrdering Facility: [facility] Address: [address] [place] [address] Performed By: #### 2 432-2, 1824-10, 2063-05, 99277-5 ####[facility] LABCLIA [id number] [place] [address] [place] CBC W Auto Differential pane l (Bld)on 07-23-2023 Basophils (Bld) [#/Vol] 0.06 10*3/uL Normal <0.11 [facility] Comment on above: Order Comment: Speci men Type: BLOOD SPECIMENOrdering Facility: [facility] Address: [address] [place] [address] Performed By: #### 5 7021-8 ####[facility] LABCLIA [id number] [place] [address] [place] Basophils/100 WBC (Bld) 0.5 % Normal [facility] Comment on above: Order Comment: Speci men Type: BLOOD SPECIMENOrdering Facility: [facility] Address: [address] [place] [address] Performed By: #### 5 7021-8 ####[facility] LABCLIA [id number] [place] [address] [place] Differential cell count method Nom (Bld) Auto Normal [facility] Comment on above: Order Comment: Speci men Type: BLOOD SPECIMENOrdering Facility: [facility] Address: [address] [place] [address] Performed By: #### 5 7021-8 ####[facility] LABCLIA [id number] [place] [address] [place] Eosinophils (Bld) [#/Vol] 0.12 10*3/uL Normal <0.46 [facility] Comment on above: Order Comment: Speci men Type: BLOOD SPECIMENOrdering Facility: [facility] Address: [address] [place] [address] Performed By: #### 5 7021-8 ####[facility] LABCLIA [id number] [place] [address] [place] Eosinophils/100 WBC (Bld) 0.9 % Normal [facility] Comment on above: Order Comment: Speci men Type: BLOOD SPECIMENOrdering Facility: [facility] Address: [address] [place] [address] Performed By: #### 5 7021-8 ####[facility] LABCLIA [id number] [place] [address] [place] Erythrocyte distribution width (RBC) [Ratio] 12.7 % Normal 11.5-15.0 [facility] Comment on above: Order Comment: Speci men Type: BLOOD SPECIMENOrdering Facility: [facility] Address: [address] [place] [address] Performed By: #### 5 7021-8 ####[facility] LABIA [id number] [place] [address] [place] Hematocrit (Bld) [Volume fraction] 42.8 % Normal 36.0-46.0 [facility] Comment on above: Order Comment: Speci men Type: BLOOD SPECIMENOrdering Facility: [facility] Address: [address] [place] [address] Performed By: #### 5 7021-8 ####[facility] LABIA [id number] [place] [address] [place] Hemoglobin (Bld) [Mass/Vol] 13.9 g/dL Normal 11.5-15.5 [facility] Comment on above: Order Comment: Speci men Type: BLOOD SPECIMENOrdering Facility: [facility] Address: [address] [place] [address] Performed By: #### 5 7021-8 ####[facility] LABCLIA [id number] [place] [address] [place] Immature granulocytes (Bld) [#/Vol] 0.04 10*3/uL Normal <0.10 [facility] Comment on above: Order Comment: Speci men Type: BLOOD SPECIMENOrdering Facility: [facility] Address: [address] [place] [address] Performed By: #### 5 7021-8 ####[facility] LABCLIA [id number] [place] [address] [place] Immature granulocytes/100 WBC (Bld) 0.3 % Normal [facility] Comment on above: Order Comment: Speci men Type: BLOOD SPECIMENOrdering Facility: [facility] Address: [address] [place] [address] Performed By: #### 5 7021-8 ####[facility]CLIA [id number] [place] [address] [place] Lymphocytes (Bld) [#/Vol] 3.02 10*3/uL Normal 1.00-4.00 [facility] Comment on above: Order Comment: Speci men Type: BLOOD SPECIMENOrdering Facility: [facility] Address: [address] [place] [address] Performed By: #### 5 7021-8 ####[facility] LABCLIA [id number] [place] [address] [place] Lymphocytes/100 WBC (Bld) 23.3 % Normal [facility] Comment on above: Order Comment: Speci men Type: BLOOD SPECIMENOrdering Facility: [facility] Address: [address] [place] [address] Performed By: #### 5 7021-8 ####[facility]CLIA [id number] [place] [address] [place] MCH (RBC) [Entitic mass] 29.6 pg Normal 26.0-34.0 [facility] Comment on above: Order Comment: Speci men Type: BLOOD SPECIMENOrdering Facility: [facility] Address: [address] [place] [address] Performed By: #### 5 7021-8 ####[facility] LABCLIA [id number] [id number] [address] [place] MCHC (RBC) [Mass/Vol] 32.5 g/dL Normal 30.5-36.0 [facility] Comment on above: Order Comment: Speci men Type: BLOOD SPECIMENOrdering Facility: [facility] Address: [address] [place] [address] Performed By: #### 5 7021-8 ####[facility]CLIA [id number] [place] [address] [place] MCV (RBC) [Entitic vol] 91.1 fL Normal 80.0-100.0 [facility] Comment on above: Order Comment: Speci men Type: BLOOD SPECIMENOrdering Facility: [facility] Address: [address] [place] [address] Performed By: #### 5 7021-8 ####[facility]CLIA [id number] [place] [address] [place] Monocytes (Bld) [#/Vol] 0.91 10*3/uL High <0.87 [facility] Comment on above: Order Comment: Speci men Type: BLOOD SPECIMENOrdering Facility: [facility] Address: [address] [place] [address] Performed By: #### 5 7021-8 ####[facility] LABIA [id number] [place] [address] [place] Monocytes/100 WBC (Bld) 7.0 % Normal [facility] Comment on above: Order Comment: Speci men Type: BLOOD SPECIMENOrdering Facility: [facility] Address: [address] [place] [address] Performed By: #### 5 7021-8 ####[facility]CLIA [id number] [place] [address] [place] Neutrophils (Bld) [#/Vol] 8.79 10*3/uL High 1.45-7.50 [facility] Comment on above: Order Comment: Speci men Type: BLOOD SPECIMENOrdering Facility: [facility] Address: [address] [place] [address] Performed By: #### 5 7021-8 ####[facility] LABCLIA [id number] [place] [address] [place] Neutrophils/100 WBC (Bld) 68.0 % Normal [facility] Comment on above: Order Comment: Speci men Type: BLOOD SPECIMENOrdering Facility: [facility] Address: [address] [place] [address] Performed By: #### 5 7021-8 ####[facility] LABCLIA [id number] [place] [address] [place] Nucleated RBC (Bld) [#/Vol] 10*3/uL Normal <0.01 [facility] Comment on above: Order Comment: Speci men Type: BLOOD SPECIMENOrdering Facility: [facility] Address: [address] [place] [address] Performed By: #### 5 7021-8 ####[facility] LABIA [id number] [place] [address] [place] Nucleated RBC/100 WBC (Bld) [Ratio] 0.0 /100 WBC Normal [facility] Comment on above: Order Comment: Speci men Type: BLOOD SPECIMENOrdering Facility: [facility] Address: [address] [place] [address] Performed By: #### 5 7021-8 ####[facility] LABCLIA [id number] [place] [address] [place] Platelet mean volume (Bld) [Entitic vol] 10.6 fL Normal 9.0-12.7 [facility] Comment on above: Order Comment: Speci men Type: BLOOD SPECIMENOrdering Facility: [facility] Address: [address] [place] [address] Performed By: #### 5 7021-8 ####[facility] LABCLIA [id number] [place] [id number] [place] Platelets (Bld) [#/Vol] 330 10*3/uL Normal 150-400 [facility] Comment on above: Order Comment: Speci men Type: BLOOD SPECIMENOrdering Facility: [facility] Address: [address] [place] [address] Performed By: #### 5 7021-8 ####[facility] [id number] [place] [address] [place] RBC (Bld) [#/Vol] 4.70 10*6/uL Normal 3.90-5.20 [facility] Comment on above: Order Comment: Speci men Type: BLOOD SPECIMENOrdering Facility: [facility] Address: [address] [place] [address] Performed By: #### 5 7021-8 ####[facility] [id number] [place] [address] [place] WBC (Bld) [#/Vol] 12.94 10*3/uL High 3.70-11.00 [facility] Comment on above: Order Comment: Speci men Type: BLOOD SPECIMENOrdering Facility: [facility] Address: [address] [place] [address] Performed By: #### 5 7021-8 ####[facility] [id number] [place] [address] [place] CERULOPLASMINon 07-23-2023 Ceruloplasmin [Mass/Vol] 33 mg/dL 16 - 45 mg/dL [facility] Ceruloplasmin SerPl-mCncon 0 07-23-2023 Ceruloplasmin [Mass/Vol] 33 mg/dL Normal 16-45 [facility] Comment on above: Order Comment: Speci men Type: BLOOD SPECIMENOrdering Facility: [facility] Address: [address] [place] [address] Performed By: #### 2 4321-2, 1825-9, 2064-4, 86917-9 ####[facility] LABCLIA [id number] [place] [id number] [place] Ceruloplasmin [Mass/Vol]on 0 07-23-2023 Interpretation and review of laboratory results Normal [facility] FERRITINon 07-23-2023 Ferritin [Mass/Vol] 401.0 ng/mL High 14.7 - 2 05.1 ng/mL [facility] Ferritin SerPl-mCncon 2023 Ferritin [Mass/Vol] 401.0 ng/mL High 14.7-205.1 [facility] Comment on above: Order Comment: Speci oumou Type: BLOOD SPECIMENOrdering Facility: [facility] Address: [address] [place] [address] Performed By: #### 2 276-4, 79406-1 ####[facility] LABIA [id number] [place] [address] [place] Ferritin [Mass/Vol]on 2023 Interpretation and review of laboratory results Abnormal [facility] HBV core Ab Ser Qlon 024 HBV core Ab Ql (S) Negative Normal Negative [facility] Comment on above: Order Comment: Winston coello Type: BLOOD SPECIMENOrdering Facility: [facility] Address: [address] [place] [address] Result Comment: No e vidence of current or past infection with Hepatitis B virus. Should recent infection be suspected, repeat testing may be considered 3-4 weeks after this draw. Performed By: #### 5 195-3, 01985-0, 29534-3, 52974-9 ####[facility] LABIA [id number] [place] [id number] [place] HBV surface Ab Ql (S)on 06-30 HBV surface Ab Qn (S) <8.00 Normal [facility] Comment on above: Order Comment: Speci oumou Type: BLOOD SPECIMENOrdering Facility: [facility] Address: [address] [place] [address] Result Comment: <8 m IU/mL: No serological evidence of immunity to Hepatitis B Virus. >/= 8 to <12 mIU/mL: No serological evidence of immunity to Hepatitis B Virus. >/= 12 mIU/mL: Consistent with serological evidence of immunity to Hepatitis B Virus. Performed By: #### 5 195-3, 39590-6, 65271-4, 91730-2 ####[facility] LABCLIA [id number] [place] [address] [place] HBV surface Ab Ser Qlon 06-30 HBV surface Ab Ql (S) Negative Normal [facility] Comment on above: Order Comment: Speci men Type: BLOOD SPECIMENOrdering Facility: [facility] Address: [address] [place] [address] Result Comment: No s erological evidence of immunity to Hepatitis B Virus. Performed By: #### 5 195-3, 99293-4, 18499-5, 88972-2 ####[facility] LABIA [id number] [address] [place] HBV surface Ag Ser Qlon 06-30 HBV surface Ag Ql (S) Negative Normal Negative [facility] Comment on above: Order Comment: Speci men Type: BLOOD SPECIMENOrdering Facility: [facility] Address: [address] [place] [address] Performed By: #### 5 195-3, 47234-0, 17933-7, 37916-4 ####[facility] LABIA [id number] [place] [address] [place] HCV Ab Ser Qlon 07-23-2023 HCV Ab Ql (S) Positive Abnormal Negative [facility] Comment on above: Order Comment: Speci men Type: BLOOD SPECIMENOrdering Facility: [facility] Address: [address] [place] [address] Performed By: #### 1 6128-1 ####[facility] LABCLIA [id number] [place] [address] [place] HCV Gentyp SerPl LALITA+probeon 07-23-2023 HCV genotype LALITA+probe Nom Genotype 3 Abnormal [facility] Comment on above: Order Comment: Speci men Type: BLOOD SPECIMENOrdering Facility: [facility] Address: [address] [place] [address] Performed By: #### 3 2286-7 ####[facility] [id number] [place] [address] [place] HCV RNA SerPl LALITA+probe-aCnc on 07-23-2023 HCV RNA LALITA+probe Qn Abnormal HCV RNA not detected by PCR. [facility] Comment on above: Order Comment: Speci men Type: BLOOD SPECIMENOrdering Facility: [facility] Address: [address] [place] [address] Result Comment: HCV RNA detected by PCR. [id number] 6.22 Performed By: #### 1 1011-4 ####[facility] [id number] [place] [address] [place] HEPATITIS A ANTIBODY, IGGon 07-23-2023 HAV IgG Ql (S) Negative Normal [facility] Comment on above: Order Comment: Speci men Type: BLOOD SPECIMENOrdering Facility: [facility] Address: [address] [place] [address] Result Comment: No s erological evidence of immunity to Hepatitis A Virus. Performed By: #### A HAVG ####[facility] [id number] [place] [address] [place] HIV 1+2 Ab IA Qlon 4 HIV 1 and 2 Ab IA.rapid Nom (S/P/Bld) Normal [facility] Comment on above: Order Comment: Speci men Type: BLOOD SPECIMENOrdering Facility: [facility] Address: [address] [place] [address] Result Comment: Test not indicated. Performed By: #### 5 195-3, 35022-1, 29874-1, 90135-6 ####[facility] LABCLIA [id number] [address] [address] [place] HIV 1+2 Ab+HIV1 p24 Ag IA Ql Non-Reactive Normal Nonreactive [facility] Comment on above: Order Comment: Speci men Type: BLOOD SPECIMENOrdering Facility: [facility] Address: [address] [place] [address] Performed By: #### 5 195-3, 41869-6, 91821-4, 19920-1 ####[facility] LABCLIA [id number] [address] [address] [place] HIV immunoassay testing algorithm interpretation (S/P/Bld) [Interp] Normal [facility] Comment on above: Order Comment: Speci men Type: BLOOD SPECIMENOrdering Facility: [facility] Address: [address] [place] [address] Result Comment: No e vidence of HIV-1 or HIV-2 infection. Should recent infection be suspected, repeat testing may be considered 2-3 weeks after this draw. [place] Rev. Code 3701.243(E): This information has been disclosed to you from confidential records protected from disclosure by state law. ???You shall make no further disclosure of this information without the specific, written, and informed release of the individual to whom it pertains or as otherwise permitted by state law. A general authorization for the release of medical or other information is not sufficient for the purpose of the release of HIV test results or diagnoses. Performed By: #### 5 195-3, 86273-2, 45562-2, 11309-3 ####[facility] LABIA [id number] [address] [address] [place] Hep Func 2000 Pnl SerPlon Bilirubin [Mass/Vol] 0.6 mg/dL Normal 0.2-1.3 [facility] Comment on above: Order Comment: Speci men Type: BLOOD SPECIMENOrdering Facility: [facility] Address: [address] [place] [address] Performed By: #### 2 4321-2, 9, 2063-05, 76152-3 ####[facility] LABCLIA [id number] [place] [id number] [facility] Performed By: #### L IVFIB ####[facility] LABCLIA [id number] [address] Hepatic function 2000 panelo n 07-23-2023 Albumin [Mass/Vol] 4.4 g/dL 3.9 - 4.9 g/dL [facility] ALP [Catalytic activity/Vol] 74 U/L 34 - 123 U/L [facility] ALT [Catalytic activity/Vol] 69 U/L High 7 - 38 U/L [facility] AST [Catalytic activity/Vol] 53 U/L High 13 - 35 U/L [facility] Bilirubin [Mass/Vol] 0.6 mg/dL 0.2 - 1 .3 mg/dL [facility] Bilirubin.conjugated [Mass/Vol] mg/dL NINF - 0.2 mg/dL [facility] Protein [Mass/Vol] 7.5 g/dL 6.3 - 8.0 g/dL [facility] Albumin [Mass/Vol] 4.4 g/dL Normal 3.9-4.9 [facility] Comment on above: Order Comment: Speci men Type: BLOOD SPECIMENOrdering Facility: [facility] Address: [address] [place] [address] Performed By: #### 2 4321-2, 1824-10, 2063-05, 16832-0 ####[facility] LABCLIA [id number] [place] [id number] [facility] ALP [Catalytic activity/Vol] 74 U/L Normal 34-123 [facility] Comment on above: Order Comment: Speci men Type: BLOOD SPECIMENOrdering Facility: [facility] Address: [address] [place] [address] Performed By: #### 2 4321-2, 1824-10, 2063-05, 93825-5 ####[facility] LABCLIA [id number] [address] [address] [place] ALT [Catalytic activity/Vol] 69 U/L High 7-38 [facility] Comment on above: Order Comment: Speci men Type: BLOOD SPECIMENOrdering Facility: [facility] Address: [address] [place] [address] Performed By: #### 2 4321-2, 1824-10, 2063-05, 04358-1 ####[facility] LABCLIA [id number] [address] [address] [place] AST [Catalytic activity/Vol] 53 U/L High 13-35 [facility] Comment on above: Order Comment: Speci men Type: BLOOD SPECIMENOrdering Facility: [facility] Address: [address] [place] [address] Performed By: #### 2 4321-2, 1824-10, 2063-05, 72193-8 ####[facility] LABCLIA [id number] [place] [address] [place] Bilirubin.conjugated [Mass/Vol] mg/dL Normal <0.2 [facility] Comment on above: Order Comment: Speci men Type: BLOOD SPECIMENOrdering Facility: [facility] Address: [address] [place] [address] Performed By: #### 2 4321-2, 1824-10, 2063-05, 90184-8 ####[facility] LABCLIA [id number] [place] [id number] [place] Protein [Mass/Vol] 7.5 g/dL Normal 6.3-8.0 [facility] Comment on above: Order Comment: Speci men Type: BLOOD SPECIMENOrdering Facility: [facility] Address: [address] [place] [address] Performed By: #### 2 4321-2, 1824-10, 2063-05, 45009-4 ####[facility] LABCLIA [id number] [place] [address] [place] Iron and Iron binding capaci ty panelon 07-23-2023 Interpretation and review of laboratory results Normal [facility] Iron [Mass/Vol] 88 ug/dL 41 - 186 ug/dL [facility] Iron binding capacity [Mass/Vol] 383 ug/dL 232 - 386 ug/dL [facility] Iron/TIBC [Molar ratio] 23.0 % 15.0 - 57.0 % [facility] Iron [Mass/Vol] 88 ug/dL Normal 41-186 [facility] Comment on above: Order Comment: Speci men Type: BLOOD SPECIMENOrdering Facility: [facility] Address: [address] [place] [address] Performed By: #### 2 276-4, 54628-1 ####[facility] LABCLIA [id number] [address] [place] Iron binding capacity [Mass/Vol] 383 ug/dL Normal 232-386 [facility] Comment on above: Order Comment: Speci men Type: BLOOD SPECIMENOrdering Facility: [facility] Address: [address] [place] [address] Performed By: #### 2 276-4, 76885-7 ####[facility] LABIA [id number] [place] [address] [place] Iron/TIBC [Molar ratio] 23.0 % Normal 15.0-57.0 [facility] Comment on above: Order Comment: Speci men Type: BLOOD SPECIMENOrdering Facility: [facility] Address: [address] [place] [address] Performed By: #### 2 276-4, 92130-5 ####[facility] LABIA [id number] [place] [address] [place] LIVER FIBROSIS AND ACTIVITYo n 07-23-2023 Nfqeu-8-Vqsvrztluakyr [Mass/Vol] 390 mg/dL High 110-270 [facility] Comment on above: Order Comment: Speci men Type: BLOOD SPECIMENOrdering Facility: [facility] Address: [address] [place] [address] Performed By: #### L IVFIB ####[facility] LABCLIA [id number] [place] [address] [place] ALT [Catalytic activity/Vol] 79 U/L High 10-35 [facility] Comment on above: Order Comment: Speci men Type: BLOOD SPECIMENOrdering Facility: [facility] Address: [address] [place] [address] Performed By: #### L IVFIB ####[facility] LABCLIA [id number] [place] [address] [place] Apolipoprotein A-I [Mass/Vol] 162 mg/dL Normal >124 [facility] Comment on above: Order Comment: Speci men Type: BLOOD SPECIMENOrdering Facility: [facility] Address: [address] [place] [address] Performed By: #### L IVFIB ####[facility] LABCLIA [id number] [place] [address] [place] FIBROSIS INTERPRETATION Minimal Fibrosis Normal [facility] Comment on above: Order Comment: Speci men Type: BLOOD SPECIMENOrdering Facility: [facility] Address: [address] [place] [address] Result Comment: Fibr osis Interpretation Table: FibroTest Score: >=0 and <=0.21 - Metavir Score: F0 No Fibrosis FibroTest Score: >0.21 and <=0.27 - Metavir Score: F0-F1 No Fibrosis FibroTest Score: >0.27 and <=0.31 - Metavir Score: F1 Minimal Fibrosis FibroTest Score: >0.31 and <=0.48 - Metavir Score: F1-F2 Minimal Fibrosis FibroTest Score: >0.48 and <=0.58- Metavir Score: F2 Moderate Fibrosis FibroTest Score: >0.58 and <=0.72 - Metavir Score: F3 Advanced Fibrosis FibroTest Score: >0.72 and <=0.74 - Metavir Score: F3-F4 Advanced Fibrosis FibroTest Score: >0.74 and <=1.00- Metavir Score: F4 Severe Fibrosis Performed By: #### L IVFIB ####[facility] LABCLIA [id number] [place] [address] [place] Fibrosis stage Ql F1-F2 Normal [facility] Comment on above: Order Comment: Speci men Type: BLOOD SPECIMENOrdering Facility: [facility] Address: [address] [place] [address] Performed By: #### L IVFIB ####[facility] LABCLIA [id number] [place] [address] [place] Gamma glutamyl transferase [Catalytic activity/Vol] 62 U/L High 6-42 [facility] Comment on above: Order Comment: Speci men Type: BLOOD SPECIMENOrdering Facility: [facility] Address: [address] [place] [address] Performed By: #### L IVFIB ####[facility] LABCLIA [id number] [place] [address] [place] Haptoglobin [Mass/Vol] 159 mg/dL Normal 31-238 Cl [facility] Comment on above: Order Comment: Speci men Type: BLOOD SPECIMENOrdering Facility: [facility] Address: [address] [place] [address] Performed By: #### L IVFIB ####[facility] LABIA [id number] [place] [address] [place] NECROINFLAM ACTIVITY INTERP Minimal Activity Normal [facility] Comment on above: Order Comment: Speci men Type: BLOOD SPECIMENOrdering Facility: [facility] Address: [address] [place] [address] Result Comment: Necr oinflammatory Activity Interpretation Table: ActiTest Score: >=0 and <=0.17 - Metavir Score: A0 No activity ActiTest Score: >0.17 and <=0.29 - Metavir Score: A0-A1 No activity ActiTest Score: >0.29 and <=0.36 - Metavir Score: A1 Minimal activity ActiTest Score: >0.36 and <=0.52 - Metavir Score: A1-A2 Minimal activity ActiTest Score: >0.52 and <=0.60 - Metavir Score: A2 Significant activity ActiTest Score: >0.60 and <=0.62 - Metavir Score: A2-A3 Significant activity ActiTest Score: >0.62 and <=1.00 - Metavir Score: A3 Severe activity Performed By: #### L IVFIB ####[facility] LABCLIA [id number] [place] [address] [place] Necroinflammatory activity grade Ql A1-A2 Normal [facility] Comment on above: Order Comment: Speci men Type: BLOOD SPECIMENOrdering Facility: [facility] Address: [address] [place] [address] Performed By: #### L IVFIB ####[facility] LABCLIA [id number] [place] [address] [place] LKM ABon 07-23-2023 LIVER-KIDNEY MICROSOMAL ABS <1:20 Normal <1:20 [facility] Comment on above: Order Comment: Speci oumou Type: BLOOD SPECIMENOrdering Facility: [facility] Address: [address] [place] [address] Result Comment: INTE RPRETIVE INFORMATION: Dthfu-Zlille-Rbcevgyji Abs, IgG Liver-Kidney Microsome IgG antibody (anti-LKM), as detected by indirect immunofluorescent antibody (IFA) techniques, may be observed in patients with autoimmune hepatitis type 2 (AIH-2), AIH-2 associated with autoimmune kzxxwvboscdiyelyob-igryajzvbtj-yewwztkkcx dystrophy (APECED), viral hepatitis C or D, and some forms of drug-induced hepatitis. This IFA does not differentiate among the four types of LKM antibodies (LKM-1, LKM-2, LKM-3, and a fourth type that recognizes CY and CY antigens). Of these, anti-LKM-1 (cytochrome X731MGJ2) IgG antibodies are considered specific for AIH-2. This test was developed and its performance characteristics determined by [employer]. It has not been cleared or approved by the [place] Food and Drug Administration. This test was performed in a CLIA certified laboratory and is intended for clinical purposes. Performed By: [facility] [address] [place] [address] Retail Attendant: Patrick Taylor MD, PhD CLIA Number: [id number] Performed By: #### L KM ####[facility] [id number] [place] [address] Mitochondria Ab IF Ql (S)on 07-23-2023 Mitochondria M2 Ab IA Qn (S) 1.6 Units Normal <=20.0 [facility] Comment on above: Order Comment: Speci men Type: BLOOD SPECIMENOrdering Facility: [facility] Address: [address] [place] [address] Performed By: #### 1 4252-1, 17342-3 ####[facility] LABIA [id number] [address] [facility] Mitochondria M2 Ab Ql (S) Negative Normal Negative [facility] Comment on above: Order Comment: Speci men Type: BLOOD SPECIMENOrdering Facility: [facility] Address: [address] [place] [address] Result Comment: Anti -mitochondrial antibody test is used as an aid in diagnosis of primary biliary cholangitis. Clinical correlation is required. Performed By: #### 1 4252-1, 10929-0 ####[facility] LABIA [id number] [address] [place] No Panel Informationon 07-22 Interpretation and review of laboratory results Abnormal [facility] IMPRESSION: 1. Increased echogenicity of the liver, compatible with hepatic steatosis. No focal hepatic mass. 2. No sonographic evidence of cholelithiasis or acute cholecystitis. No biliary ductal dilation. 3. Normal sonographic appearance of the spleen. No splenomegaly or focal splenic mass. [employer] Support Operations Operator: MANJU Transcribe Date/Time: Jul 23 2023 3:44P Dictated by : JAYLEEN SANTOS MD This examination was interpreted and the report reviewed and electronically signed by: JAYLEEN SANTOS MD on Jul 23 2023 3:45PM [facility] DIV[facility] OF RADIOLOGY Radiology Study observation (narrative) [facility] No Panel InformationOrdered By: Ccf Provider on 07-23-2023 [facility] PHOSPHATIDYLETHANOL (PETH)on 07-23-2023 EER PETH See Note Normal [facility] Comment on above: Order Comment: Speci men Type: BLOOD SPECIMENOrdering Facility: [facility] Address: [address] [place] [address] Result Comment: Auth orized individuals can access the i[employer]ise Enhanced Report using the following link: [email or web address] Performed By: #### P ETH ####[facility] [id number] [place] [address] PETH 16:0/18.2 (PLPETH) <10 [facility] Comment on above: Order Comment: Speci men Type: BLOOD SPECIMENOrdering Facility: [facility] Address: [address] [place] [address] Result Comment: Refe rence ranges are not well established. Performed By: #### P ETH ####[facility] [id number] [place] [address] PETH 16:0/18:1 (POPETH) <10 [facility] Comment on above: Order Comment: Speci men Type: BLOOD SPECIMENOrdering Facility: [facility] Address: [address] [place] [address] Result Comment: PEth 16:0/18:1 (POPEth) Less than 10 ng/mL............Not detected Less than 20 ng/mL............Abstinence or light alcohol consumption 20 - 200 ng/mL................Moderate alcohol consumption Greater than 200 ng/mL........Heavy alcohol consumption or chronic alcohol use (Reference: Dedra Gómez and Nader Hawkins 2018 J. Forensic Sci) Performed By: #### P ETH ####[facility]IES[facility] [id number] [place] [address] PETH INTERPRETATION See Comment Normal [facility] Comment on above: Order Comment: Speci men Type: BLOOD SPECIMENOrdering Facility: [facility] Address: [address] [place] [address] Result Comment: Phos phatidylethanol (PEth) is a group of phospholipids formed in the presence of ethanol, phospholipase D and phosphatidylcholine. PEth is known to be a direct alcohol biomarker. The predominant PEth homologues are PEth 16:0/18:1 (POPEth) and PEth 16:0/18:2 (PLPEth), which account for 37-46% and 26-28% of the total PEth homologues, respectively. PEth is incorporated into the phospholipid membrane of red blood cells and has a general half-life of 4-10 days and a window of detection of 2-4 weeks. However, the window of detection is longer in individuals who chronically or excessively consume alcohol. The limit of quantification is 10 ng/mL. Serial monitoring of PEth may be helpful in monitoring alcohol abstinence over time. PEth results should be interpreted in the context of the patient's clinical and behavioral history. Patients with advanced liver disease may have falsely elevated PEth concentrations (Marcela BOWMAN et al 2018, Alcoholism Clinical & Experimental Research). This test was developed and its performance characteristics determined by [facility]. It has not been cleared or approved by the U.S. Food and Drug Administration. This test was performed in a CLIA-certified laboratory and is intended for clinical purposes. Performed By: [facility] [address] [place] [address] Retail Attendant: Patrick Taylor MD, PhD CLIA Number: [id number] Performed By: #### P ETH ####[facility] [employer]. White EnterprisesIA [id number] [place] [address] PT panel Coag (PPP)on 2023 INR Coag (PPP) [Relative time] 1.0 {INR} 0.9 - 1.3 [facility] Comment on above: Vitamin K Antagonist (VKA) Therapeutic Range: INR 2 to 3 (Target INR of 2.5) Note: For patients treated with VKA drugs, such as warfarin, the [employer] 2012 Guideline recommends a therapeutic INR range of 2 to 3 (target INR of 2.5). This recommendation includes high-risk patients with antiphospholipid syndrome with previous arterial or venous thromboembolism, current-generation mechanical or bioprosthetic aortic heart valve replacement. Note: Patients with mechanical aortic valve replacement and additional risk factors for thromboembolic events (atrial fibrillation, previous thromboembolism, LV dysfunction, hypercoagulable conditions) or an older generation mechanical AVR (i.e., ball in-Cage) or any mechanical MVR should have a INR therapeutic range of 2.5 to 3.5 (target INR of 3). bethany Leiva. Chest 2012, 141:7S-47S Lindsay ESPAÑA et al. [facility] 2017, 70: 252-289 Interpretation and review of laboratory results Normal [facility] PT Coag (PPP) [Time] 10.3 s [facility] INR Coag (PPP) [Relative time] 1.0 {INR} Normal 0.9-1.3 [facility] Comment on above: Order Comment: Speci men Type: BLOOD SPECIMENOrdering Facility: [facility] Address: [address] [place] [address] Result Comment: Alejandra min K Antagonist (VKA) Therapeutic Range: INR 2 to 3 (Target INR of 2.5) Note: For patients treated with VKA drugs, such as warfarin, the [employer] 2012 Guideline recommends a therapeutic INR range of 2 to 3 (target INR of 2.5). This recommendation includes high-risk patients with antiphospholipid syndrome with previous arterial or venous thromboembolism, current-generation mechanical or bioprosthetic aortic heart valve replacement. Note: Patients with mechanical aortic valve replacement and additional risk factors for thromboembolic events (atrial fibrillation, previous thromboembolism, LV dysfunction, hypercoagulable conditions) or an older generation mechanical AVR (i.e., ball in-Cage) or any mechanical MVR should have a INR therapeutic range of 2.5 to 3.5 (target INR of 3). bethany Leiva. Chest 2012, 141:7S-47S Lindsay ESPAÑA et al. [facility] 2017, 70: 252-289 Performed By: #### 3 4528-0 ####[facility] LABIA [id number] [place] [address] [place] PT Coag (PPP) [Time] 10.3 s Normal 9.7-13.0 [facility] Comment on above: Order Comment: Speci men Type: BLOOD SPECIMENOrdering Facility: [facility] Address: [address] [place] [address] Performed By: #### 3 4528-0 ####[facility] [id number] [address] [place] Smooth muscle Ab Ql (S)on ACTIN SMOOTH MUSCLE IGG QUALITATIVE Negative Normal Negative [facility] Comment on above: Order Comment: Speci men Type: BLOOD SPECIMENOrdering Facility: [facility] Address: [address] [place] [address] Performed By: #### 1 4252-1, 80195-1 ####[facility] [id number] [address] ACTIN SMOOTH MUSCLE IGG QUANTITATIVE 9 Units Normal <20 [facility] Comment on above: Order Comment: Speci men Type: BLOOD SPECIMENOrdering Facility: [facility] Address: [address] [place] [address] Performed By: #### 1 4252-1, 25314-8 ####[facility] [id number] [place] [address] [place] US ABD RIGHT UPPER QUADRANTo n 07-23-2023 US ABD RIGHT UPPER QUADRANT * * *Final Report* * * DATE OF EXAM: Jul 23 2023 12:35PM [facility] - US ABD RIGHT UPPER QUADRANT / PROCEDURE REASON: Chronic hepatitis C without hepatic coma (HCC) * * * * Physician Interpretation * * * * EXAMINATION: RIGHT UPPER QUADRANT AND SPLEEN ULTRASOUND CLINICAL HISTORY: Chronic hepatitis C TECHNIQUE: Sonography of the right upper quadrant and spleen was performed. Images were obtained and stored in a permanent archive. MQ: URUQ_2 COMPARISON: None. RESULT: Pancreas: Normal sonographic appearance. Portions obscured: tail Liver: Echotexture: Normal, homogeneous. Echogenicity: Increased Surface contour: Smooth Lesions: None. Biliary: No intrahepatic biliary duct dilation. CBD: 0.4 cm at the hilum. Gallbladder: Normal caliber -Contents: No cholelithiasis -Wall: Normal -Other: No pericholecystic fluid. Right Kidney: The right kidney measures 10.8 cm in craniocaudal dimension. No renal calculus or hydronephrosis is seen. Ascites: None. Spleen: The craniocaudal length of the spleen is 11.5 cm, normal. There are no splenic lesions. The left kidney measures 10.7 cm craniocaudal dimension. No renal calculus or hydronephrosis is seen. IMPRESSION: 1. Increased echogenicity of the liver, compatible with hepatic steatosis. No focal hepatic mass. 2. No sonographic evidence of cholelithiasis or acute cholecystitis. No biliary ductal dilation. 3. Normal sonographic appearance of the spleen. No splenomegaly or focal splenic mass. Air Support Operations Operator: [facility] Transcribe Date/Time: Jul 23 2023 3:44P Dictated by : JAYLEEN SANTOS MD This examination was interpreted and the report reviewed and electronically signed by: JAYLEEN SANTOS MD on Jul 23 2023 3:45PM EST [id number] Normal [facility] US ABD SPLEENon 07-23-2023 US ABD SPLEEN * * *Final Report* * * DATE OF EXAM: Jul 23 2023 12:35PM [facility] - US ABD SPLEEN / PROCEDURE REASON: Chronic hepatitis C without hepatic coma (HCC) * * * * Physician Interpretation * * * * EXAMINATION: RIGHT UPPER QUADRANT AND SPLEEN ULTRASOUND CLINICAL HISTORY: Chronic hepatitis C TECHNIQUE: Sonography of the right upper quadrant and spleen was performed. Images were obtained and stored in a permanent archive. MQ: URUQ_2 COMPARISON: None. RESULT: Pancreas: Normal sonographic appearance. Portions obscured: tail Liver: Echotexture: Normal, homogeneous. Echogenicity: Increased Surface contour: Smooth Lesions: None. Biliary: No intrahepatic biliary duct dilation. CBD: 0.4 cm at the hilum. Gallbladder: Normal caliber -Contents: No cholelithiasis -Wall: Normal -Other: No pericholecystic fluid. Right Kidney: The right kidney measures 10.8 cm in craniocaudal dimension. No renal calculus or hydronephrosis is seen. Ascites: None. Spleen: The craniocaudal length of the spleen is 11.5 cm, normal. There are no splenic lesions. The left kidney measures 10.7 cm craniocaudal dimension. No renal calculus or hydronephrosis is seen. IMPRESSION: 1. Increased echogenicity of the liver, compatible with hepatic steatosis. No focal hepatic mass. 2. No sonographic evidence of cholelithiasis or acute cholecystitis. No biliary ductal dilation. 3. Normal sonographic appearance of the spleen. No splenomegaly or focal splenic mass. Air Support Operations Operator: [facility] Transcribe Date/Time: Jul 23 2023 3:44P Dictated by : JAYLEEN SANTOS MD This examination was interpreted and the report reviewed and electronically signed by: JAYLEEN SANTOS MD on Jul 23 2023 3:45PM EST [id number] Normal [facility] US Abdomen RUQon 07-23-2023 * * *Final Report* * * DATE OF EXAM: Jul 23 2023 12:35PM [facility]32 - US ABD RIGHT UPPER QUADRANT / PROCEDURE REASON: Chronic hepatitis C without hepatic coma (HCC) * * * * Physician Interpretation * * * * EXAMINATION: RIGHT UPPER QUADRANT AND SPLEEN ULTRASOUND CLINICAL HISTORY: Chronic hepatitis C TECHNIQUE: Sonography of the right upper quadrant and spleen was performed. Images were obtained and stored in a permanent archive. MQ: URUQ_2 COMPARISON: None. RESULT: Pancreas: Normal sonographic appearance. Portions obscured: tail Liver: Echotexture: Normal, homogeneous. Echogenicity: Increased Surface contour: Smooth Lesions: None. Biliary: No intrahepatic biliary duct dilation. CBD: 0.4 cm at the hilum. Gallbladder: Normal caliber -Contents: No cholelithiasis -Wall: Normal -Other: No pericholecystic fluid. Right Kidney: The right kidney measures 10.8 cm in craniocaudal dimension. No renal calculus or hydronephrosis is seen. Ascites: None. Spleen: The craniocaudal length of the spleen is 11.5 cm, normal. There are no splenic lesions. The left kidney measures 10.7 cm craniocaudal dimension. No renal calculus or hydronephrosis is seen. DIVISION OF RADIOLOGY Provider, [facility] - 07/23/2023 * * *Final Report* * * DATE OF EXAM: Jul 23 2023 12:35PM [facility] - US ABD RIGHT UPPER QUADRANT / PROCEDURE REASON: Chronic hepatitis C without hepatic coma (HCC) * * * * Physician Interpretation * * * * EXAMINATION: RIGHT UPPER QUADRANT AND SPLEEN ULTRASOUND CLINICAL HISTORY: Chronic hepatitis C TECHNIQUE: Sonography of the right upper quadrant and spleen was performed. Images were obtained and stored in a permanent archive. MQ: URUQ_2 COMPARISON: None. RESULT: Pancreas: Normal sonographic appearance. Portions obscured: tail Liver: Echotexture: Normal, homogeneous. Echogenicity: Increased Surface contour: Smooth Lesions: None. Biliary: No intrahepatic biliary duct dilation. CBD: 0.4 cm at the hilum. Gallbladder: Normal caliber -Contents: No cholelithiasis -Wall: Normal -Other: No pericholecystic fluid. Right Kidney: The right kidney measures 10.8 cm in craniocaudal dimension. No renal calculus or hydronephrosis is seen. Ascites: None. Spleen: The craniocaudal length of the spleen is 11.5 cm, normal. There are no splenic lesions. The left kidney measures 10.7 cm craniocaudal dimension. No renal calculus or hydronephrosis is seen. IMPRESSION IMPRESSION: 1. Increased echogenicity of the liver, compatible with hepatic steatosis. No focal hepatic mass. 2. No sonographic evidence of cholelithiasis or acute cholecystitis. No biliary ductal dilation. 3. Normal sonographic appearance of the spleen. No splenomegaly or focal splenic mass. Air Support Operations Operator: [facility] Transcribe Date/Time: Jul 23 2023 3:44P Dictated by : JAYLEEN SANTOS MD This examination was interpreted and the report reviewed and electronically signed by: JAYLEEN SANTOS MD on Jul 23 2023 3:45PM [facility] Spleenon 07-23-2023 * * *Final Report* * * DATE OF EXAM: Jul 23 2023 12:35PM [facility] - US ABD SPLEEN / PROCEDURE REASON: Chronic hepatitis C without hepatic coma (HCC) * * * * Physician Interpretation * * * * EXAMINATION: RIGHT UPPER QUADRANT AND SPLEEN ULTRASOUND CLINICAL HISTORY: Chronic hepatitis C TECHNIQUE: Sonography of the right upper quadrant and spleen was performed. Images were obtained and stored in a permanent archive. MQ: URUQ_2 COMPARISON: None. RESULT: Pancreas: Normal sonographic appearance. Portions obscured: tail Liver: Echotexture: Normal, homogeneous. Echogenicity: Increased Surface contour: Smooth Lesions: None. Biliary: No intrahepatic biliary duct dilation. CBD: 0.4 cm at the hilum. Gallbladder: Normal caliber -Contents: No cholelithiasis -Wall: Normal -Other: No pericholecystic fluid. Right Kidney: The right kidney measures 10.8 cm in craniocaudal dimension. No renal calculus or hydronephrosis is seen. Ascites: None. Spleen: The craniocaudal length of the spleen is 11.5 cm, normal. There are no splenic lesions. The left kidney measures 10.7 cm craniocaudal dimension. No renal calculus or hydronephrosis is seen. DIVISION OF RADIOLOGY Provider, [facility] - 07/23/2023 * * *Final Report* * * DATE OF EXAM: Jul 23 2023 12:35PM [facility] - US ABD SPLEEN / PROCEDURE REASON: Chronic hepatitis C without hepatic coma (HCC) * * * * Physician Interpretation * * * * EXAMINATION: RIGHT UPPER QUADRANT AND SPLEEN ULTRASOUND CLINICAL HISTORY: Chronic hepatitis C TECHNIQUE: Sonography of the right upper quadrant and spleen was performed. Images were obtained and stored in a permanent archive. MQ: URUQ_2 COMPARISON: None. RESULT: Pancreas: Normal sonographic appearance. Portions obscured: tail Liver: Echotexture: Normal, homogeneous. Echogenicity: Increased Surface contour: Smooth Lesions: None. Biliary: No intrahepatic biliary duct dilation. CBD: 0.4 cm at the hilum. Gallbladder: Normal caliber -Contents: No cholelithiasis -Wall: Normal -Other: No pericholecystic fluid. Right Kidney: The right kidney measures 10.8 cm in craniocaudal dimension. No renal calculus or hydronephrosis is seen. Ascites: None. Spleen: The craniocaudal length of the spleen is 11.5 cm, normal. There are no splenic lesions. The left kidney measures 10.7 cm craniocaudal dimension. No renal calculus or hydronephrosis is seen. IMPRESSION IMPRESSION: 1. Increased echogenicity of the liver, compatible with hepatic steatosis. No focal hepatic mass. 2. No sonographic evidence of cholelithiasis or acute cholecystitis. No biliary ductal dilation. 3. Normal sonographic appearance of the spleen. No splenomegaly or focal splenic mass. Air Support Operations Operator: [facility] Transcribe Date/Time: Jul 23 2023 3:44P Dictated by : JAYLEEN SANTOS MD This examination was interpreted and the report reviewed and electronically signed by: JAYLEEN SANTOS MD on Jul 23 2023 3:45PM [facility] Registrationon 07-09-2023 Registration [id number]# 1.00TIFF Normal [facility] CNOVon 07-02-2023 CNOV Office Visit (GASTA5 ) PERLA SPANN ([id number]) 1990 F Date Time Provider Department 07/02/23 3:00 PM CIARRA COTTON GASTA5 During your visit today, we recorded the following information about you: Temperature Pulse Blood pressure Height 97.6 degrees 100/minute 150/88 1.702 m Ciarra Cotton APRN.CNP 07/29/2023 1:38 PM Signed NAME: Perla Spann AGE: [age] year old Patient is referred in consultation by for an opinion regarding Hepatitis C and my final recommendations will be communicated back to the requesting physician by way of shared Medical Record. PRESENTING COMPLAINT: hepatitis C HISTORY Perla Spann is a 33 year old year old female with unknown PMHx who presents with HCV. 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 Daily use for 7-8 years with binge drinking (whiskey and beer). Stopped heavy drinking at 24 yrs old. Nutrition: Does not follow specific diet although states trying to reduce carbs Has lost about 75 lbs for about given improved dietary habits, increased physical activity Metabolic Syndrome Risk factors: 2 1) Diabetes/ Abnormal FBS >100mg/dL: no 2) Hypertension : yes 3)Triglycerides more then 150 : no 4) HDL (<50 female and <40 male): no 5) Central obesity ( Waist >102 men and >88 female) - yes Risk Factors for Liver Disease: 1. Blood transfusions before 1991: No 2. IVDA: Yes, last use 4 years. Relapsed 2.5 yrs ago with smoking, IVDU. 3. Intranasal coccaine use: Yes, last use 4+ years ago 4. Tattoos: Yes, completed homemade 5. Service: No 6. High risk sexual behavior: No 7. Alcohol: Last use 04/19/23. 8. Obesity: Yes 9. Hyperlipidemia: No 10. Prolonged exposure to hepatotoxic meds: No 11. Other autoimmune disorders No OTC herbal supplements: Denies Tylenol use: Denies Denies jaundice, nausea, vomiting, diarrhea, hematochezia, hematemesis, ascites, episodes of confusion. IMAGING: - unknown No past surgical history on file. No past medical history on file. No current outpatient medications on file. No current facility-administered medications for this visit. ALLERGIES Not on File FAMILY HISTORY Liver Problems: No No family history on file. GI SPECIFIC ROS Difficulty swallowing / foods sticking in throat: No Heartburn: No Filling up quickly at meals: No Loss of appetite: No Nausea: No Vomiting: No Abdominal pain: Occasionally, right sided pain Recent change in bowel movements: No Bloody or black, bowel movements: No Constipation: occasionally Diarrhea: No Loss of control of bowel movements: No Night sweats, fever, chills: No Thought or memory problems: No Fluid in abdomen (ascites): No Prominent leg swelling: No Vomiting blood: No Recent change in weight: No PHYSICAL EXAMINATION There were no vitals taken for this visit. General Appearance: Well appearing, alert, in no acute distress, well-hydrated, well nourished. Eyes: no scleral icterus Abdomen: not distended Extremities: no cyanosis or edema Skin: no jaundice, no spider angiomas, no palmar erythema Neuro:alert, oriented x 3, pleasant and in no acute distress Recent Labs: No results found for: HB , HCT , WBC No results found for: GLUC , K , NA , CHLOR , CO2 , CREAT , BUN , ANION , CA No results found for: ALB , TBILI , CBILI , ALKPHOS , AST , ALT , TPROT Computed MELD 3.0 unavailable. One or more values for this score either were not found within the given timeframe or did not fit some other criterion. Computed MELD-Na unavailable. One or more values for this score either were not found within the given timeframe or did not fit some other criterion. Assessment IMPRESSION Perla Spann is a 33 year old year old female with unknown PMHx who presents with HCV. Risk factors include IVDU and she is treatment naive. Will obtain updated HCV quant, genotype, and serologic evaluation. Will also obtain updated imaging and Fibroscan for further steatosis/fibrosis staging. -Discussed Hepatitis C and it's natural progression -Discussed risk factors for Hep C -Discussed liver disease and it's progression -Discussed personal risk factors for the development of liver disease/cirrhosis -Discussed treatment/plan -Discussed sx of worsening liver disease -Discussed need to avoid alcohol intake PLAN Chronic HCV: - repeat HFP - HCV connie (more content not included)... Normal [facility] Physician Referralon 024 Physician Referral [id number]# 1.00TIFF Normal [facility] Family Medicine Video Visit - Telehealthon 05-27-2023 Family Medicine Video Visit - Telehealth Chief Complaint Telehealth - Wt loss HPI Staff Pt would like to discuss Trulicity and wt loss. She states she has been on Trulicity for the past 5 wks and have only lost 5 lbs. She states she has noticed any changes in her appetite. States she feels like she is getting hungry sooner in the day since starting it, as before she was only eating at dinner time and she finds herself now wanting lunch. Pap - 8.24.23 Neg/Neg BMP and Lipids - 4.3.23 Total - 167 Trigs - 79 HDL - 37 LDL - 122 History of Present Illness Perla Spann is a 3-year-old female who is on a video visit today to discuss new medication of Trulicity. The patient, during her visit on 04/2023, expressed a strong interest in continuing her weight loss journey. Since 07/2022, she had successfully lost 53 pounds through a combination of dietary changes and increased physical activity, including walking, and exercising on most days of the week. She has a history of impaired fasting blood sugar, with elevated fasting blood sugar levels of 115 mg/dL recorded on 05/2022. Her A1c level was within the normal range at 5.6%. Given her past elevated blood sugar levels, she anticipated that her insurance would cover a GLP-1 medication, as she had been provided with free scales and other diabetes prevention tools. However, her insurance was Medicaid, and when Trulicity was prescribed, it was covered. She has been on Trulicity at a starting dose of 0.75 mg for the past 5 weeks, during which she has lost 5 pounds. Despite this, she feels that the medication is not as effective as she had hoped, as she is experiencing increased hunger compared to her previous weight loss efforts. She continues to lose weight, but at a slower rate than before. Over the past 5 weeks, she has lost approximately 5 pounds, and she has increased her gym visits. She reports no side effects from Trulicity. Review of Systems All other systems are negative except as stated in the HPI. Physical Exam Pt visualized on computer screen. Sitting up in chair at their home. Appears well. Denies pain. Alert and oriented x3, normal mood and affect, speech normal, judgement and reasoning good. No cough noted, no conversational dyspnea or audible wheezing heard. Respiratory effort normal. Assessment/Plan 1. IFG (impaired fasting glucose) (R73.01: Impaired fasting glucose) Again, I am surprised her insurance covered Trulicity for this, but they discussed logical expectations of these medications with her. I will increase Trulicity dose to 1.5 mg weekly. She will continue lifestyle modifications. Further weight loss encouraged. If she feels after a month or so, we need to go up and dose again, she will let me know. 2. Morbid obesity (E66.01: Morbid (severe) obesity due to excess calories) Discussed health risks of obesity Encourage healthy, balanced diet low in sugar, fat, carbs Encouraged exercise regimen 3. BMI 39.0-39.9,adult (Z68.39: Body mass index [BMI] 39.0-39.9, adult) Noted Follow-up The patient will follow up in 6 months. Total time spent preparing the chart, conducting of the encounter with the patient and family and time spent documenting, reviewing, and ordering tests was 15 or 20 minute. Portions of this record may have been created with voice recognition artificial intelligence software, specifically [employer], [employer] and or [email or web address]. Substitutions may have occurred due to the inherent limitations of voice recognition and artificial intelligence software. ATTESTATION: Documentation services were performed after patient or guardian consented to allow [employer] to record this visit. ANDREY internet network specialist and provider reviewed before signing. ANDREY: Jama Mora Follow-up With When Contact Information Elise GODINEZ CNP In 6 months [address] [place] [address]- Additional Instructions: Problem List/Past Medical History Ongoing BMI 39.0-39.9,adult Contraception management HCV (hepatitis C virus) History of drug abuse HTN (hypertension) IFG (impaired fasting glucose) Morbid obesity Nicotine addiction PTSD (post-traumatic stress disorder) Historical No qualifying data Procedure/Surgical History Tonsillectomy (1996). Medications cyclobenzaprine 10 mg Tab, 10 mg= 1 tab(s), Oral, BID, PRN, 5 refills, Not taking hydrochlorothiazide 25 mg Tab, 25 mg= 1 tab(s), Oral, Daily, 3 refills lisinopril 40 mg Tab, 40 mg= 1 tab(s), Oral, Daily, 3 refills Sprintec oral tablet, 1 tab(s), Oral, Daily, 4 refills Suboxone 8 mg-2 mg sublingual film, 1 film, SubLingual, Daily Trulicity Pen 1.5 mg/0.5 mL subcutaneous solution, 1.5 mg, SubCutaneous, qWeek, 4 refills Allergies No Known Medication Allergies Social History Alcohol - Denies Alcohol Use, 04/18/2022 Substance Abuse - Denies Substance Abuse, 04/18/2022 Tobacco - Denies Tobacco Use, 04/18/2022 Former smoker, quit more than 30 days ago Tobacco Use:. Current v (more content not included)... Normal [facility] Comment on above: Result Comment: Elec tronically Signed By: Elise GODINEZ CNP\.br\Date and Time Signed: 05/27/23 16:04 EDT\.br\Electronically Co-Signed By: Jama Mora\.br\Date and Time Co-Signed: 05/26/23 18:14 EDT Ambulatory Visit Summaryon 0 05-26-2023 Ambulatory Visit Summary SPANNPERLA :1990 Visit Date:05/26/2023 Ambulatory Visit Instructions Your Diagnosis IFG (impaired fasting glucose) Morbid obesity BMI 39.0-39.9,adult Your Care Team Attending Physician - Elise GODINEZ CNP Primary Care Physician - Elise GODINEZ CNP This Is Your Medications List dulaglutide (Trulicity Pen 1.5 mg/0.5 mL subcutaneous solution) Contact prescribing physician if questions or concerns buprenorphine-naloxon e (Suboxone 8 mg-2 mg sublingual film) cyclobenzaprine (cyclobenzaprine 10 mg Tab) ethinyl estradiol-norgestimat e (Sprintec oral tablet) hydrochlorothiazide (hydrochlorothiazide 25 mg Tab) lisinopril (lisinopril 40 mg Tab) Procedures Performed Tonsillectomy (1996). What to do next You Need to Schedule the Following Appointments Follow Up with Elise GODINEZ CNP When: In 6 months Where: [address] [place] [address]- Medications What How Much When Instructions Changed dulaglutide (Trulicity Pen 1.5 mg/ 0.5 mL subcutaneous solution) 1.5 Milligram Subcutaneous Every week Pickup at [facility]/pharmacy #[id number] Unchanged buprenorphine-naloxon e (Suboxone 8 mg-2 mg sublingual film) 1 film Sublingual Every day Contact prescribing physician if questions or concerns Unchanged cyclobenzaprine (cyclobenzaprine 10 mg Tab) 1 Tablets By Mouth 2 times a day as needed for for spasm Contact prescribing physician if questions or concerns Unchanged ethinyl estradiol-norgestimat e (Sprintec oral tablet) 1 Tablets By Mouth Every day Contact prescribing physician if questions or concerns Unchanged hydrochlorothiazide (hydrochlorothiazide 25 mg Tab) 1 Tablets By Mouth Every day Contact prescribing physician if questions or concerns Unchanged lisinopril (lisinopril 40 mg Tab) 1 Tablets By Mouth Every day Contact prescribing physician if questions or concerns Pharmacy Information [facility]/pharmacy #[id number]: [address], [place] [id number] [phone] Allergies No Known Medication Allergies Problems Ongoing - Any problem that you are currently receiving treatment for. BMI 39.0-39.9,adult Contraception management HCV (hepatitis C virus) History of drug abuse HTN (hypertension) IFG (impaired fasting glucose) Morbid obesity Nicotine addiction PTSD (post-traumatic stress disorder) Patient Survey You may receive a survey via text or e-mail asking about your office visit. Please share your experience with us by completing your survey. We appreciate your feedback and thank you for choosing us for your care. Normal [facility] Family Medicine Office/Clini c Noteon 05-26-2023 Family Medicine Office/Clinic Note Chief Complaint Telehealth - Wt loss HPI Staff Pt would like to discuss Trulicity and wt loss. She states she has been on Trulicity for the past 5 wks and have only lost 5 lbs. She states she has noticed any changes in her appetite. States she feels like she is getting hungry sooner in the day since starting it, as before she was only eating at dinner time and she finds herself now wanting lunch. Pap - 8.24.23 Neg/Neg BMP and Lipids - 4.3.23 Total - 167 Trigs - 79 HDL - 37 LDL - 122 History of Present Illness Perla Spann is a 3-year-old female who is on a video visit today to discuss new medication of Trulicity. The patient, during her visit on 04/2023, expressed a strong interest in continuing her weight loss journey. Since 07/2022, she had successfully lost 53 pounds through a combination of dietary changes and increased physical activity, including walking, and exercising on most days of the week. She has a history of impaired fasting blood sugar, with elevated fasting blood sugar levels of 115 mg/dL recorded on 05/2022. Her A1c level was within the normal range at 5.6%. Given her past elevated blood sugar levels, she anticipated that her insurance would cover a GLP-1 medication, as she had been provided with free scales and other diabetes prevention tools. However, her insurance was Medicaid, and when Trulicity was prescribed, it was covered. She has been on Trulicity at a starting dose of 0.75 mg for the past 5 weeks, during which she has lost 5 pounds. Despite this, she feels that the medication is not as effective as she had hoped, as she is experiencing increased hunger compared to her previous weight loss efforts. She continues to lose weight, but at a slower rate than before. Over the past 5 weeks, she has lost approximately 5 pounds, and she has increased her gym visits. She reports no side effects from Trulicity. Review of Systems PHQ Score Initial Depression Screen Score: 1 SCORE All other systems are negative except as stated in the HPI. Physical Exam Pt visualized on computer screen. Sitting up in chair at their home. Appears well. Denies pain. Alert and oriented x3, normal mood and affect, speech normal, judgement and reasoning good. No cough noted, no conversational dyspnea or audible wheezing heard. Respiratory effort normal. Assessment/Plan 1. IFG (impaired fasting glucose) (R73.01: Impaired fasting glucose) Again, I am surprised her insurance covered Trulicity for this, but they discussed logical expectations of these medications with her. I will increase Trulicity dose to 1.5 mg weekly. She will continue lifestyle modifications. Further weight loss encouraged. If she feels after a month or so, we need to go up and dose again, she will let me know. 2. Morbid obesity (E66.01: Morbid (severe) obesity due to excess calories) Discussed health risks of obesity. Encourage healthy, balanced diet low in sugar, fat, carbs. Encouraged exercise regimen. 3. BMI 39.0-39.9,adult (Z68.39: Body mass index [BMI] 39.0-39.9, adult) Noted. Follow-up The patient will follow up in 6 months. Total time spent preparing the chart, conducting of the encounter with the patient and family and time spent documenting, reviewing, and ordering tests was 15 or 20 minute. Portions of this record may have been created with voice recognition artificial intelligence software, specifically [employer], [employer] and or [email or web address]. Substitutions may have occurred due to the inherent limitations of voice recognition and artificial intelligence software. ATTESTATION: Documentation services were performed after patient or guardian consented to allow FaceTags experience to record this visit. ANDREY internet network specialist and provider reviewed before signing. ANDREY: Jama Mora Follow-up With When Contact Information Elise GODINEZ CNP In [address] [place] [address]- Additional Instructions: Problem List/Past Medical History Ongoing BMI 39.0-39.9,adult Contraception management HCV (hepatitis C virus) History of drug abuse HTN (hypertension) IFG (impaired fasting glucose) Morbid obesity Nicotine addiction PTSD (post-traumatic stress disorder) Historical No qualifying data Procedure/Surgical History Tonsillectomy (1996). Medications cyclobenzaprine 10 mg Tab, 10 mg= 1 tab(s), Oral, BID, PRN, 5 refills, Not taking hydrochlorothiazide 25 mg Tab, 25 mg= 1 tab(s), Oral, Daily, 3 refills lisinopril 40 mg Tab, 40 mg= 1 tab(s), Oral, Daily, 3 refills Sprintec oral tablet, 1 tab(s), Oral, Daily, 4 refills Suboxone 8 mg-2 mg sublingual film, 1 film, SubLingual, Daily Trulicity Pen 1.5 mg/0.5 mL subcutaneous solution, 1.5 mg, SubCutaneous, qWeek, 4 refills Allergies No Known Medication Allergies Social History Alcohol - Denies Alcohol Use, 04/18/2022 Substance Abuse - Denies Substance Abuse, 04/18/2022 Tobacco - Denies Tobacco Use, 04/18/2022 Former (more content not included)... Normal [facility] Comment on above: Result Comment: Elec tronically Signed By: Jama Mora\.br\Date and Time Signed: 05/26/23 16:38 EDT\.br\Electronically Co-Signed By: Elise GODINEZ CNP Other Comment: Note type error. Family Medicine Video Visit - Telehealthon 04-21-2023 Family Medicine Video Visit - Telehealth Chief Complaint HTN, wt loss, discuss bcp. HPI Staff 6 mo f/u Patient is here for follow up on hypertension. How often are you checking your blood pressure? Not checking What are your average readings? N/A Do you exercise? walks daily Are you compliant with your medications? Do you have side effects from the medication? No Do you have any of the following symptoms? Chest Pain? No Palpitations? No TORRES/SOB? No Headache? No Peripheral Edema? No Light Headedness? No Pt would like to discuss weight loss, has been doing it on her by walking daily and eating healthier. States she currently weighs 262, she would like to discuss one of the wkly injectables. Pt would also like to discuss starting oral control, states it has been years since she has been on any. She had trouble remembering to take it back then, but with her daily BP med she feels like she will remember to take it now. Pap - 8.24.23 Neg/Neg BMP and Lipids - 4.3.23 Total - 167 Trigs - 79 HDL - 37 LDL - 122 The standard range for ages 18 and older is >=18.5 and < 25 kg/m2. Your BMI today was above this range, this falls in the overweight to obese category and there are medical benefits to weight loss. We can offer counselling, referral, and/or medical support in addressing this problem. Your BMI and weight management will be followed at subsequent visits. History of Present Illness Perla Spann is a 33-year-old female who presents today via video visit for a 6-month follow-up of chronic conditions including hypertension. This visit was supposed to be in the office but had to get changed to video due to me being confined at home with illness. She continues on lisinopril 40 mg and hydrochlorothiazide 25 mg daily for her hypertension. She does not check her blood pressure at home; however, she has started an exercise regimen and has been doing it religiously for months now, walking around town daily with her dogs. Denies chest pain, heart palpitations, sob, torres, edema, headaches. She did see digestive health, GI, back in 09/2022 for hepatitis C treatment. She did test positive with HCV, which was known, and she had a elevated fibrosis score, so needed to be seen by the new GI kelli as we were transitioning, but she never did this. I did see her after that. She had a Pap smear, which was normal. She does have a history of substance abuse and drug addiction for which she is on Suboxone for. She has been mostly clean for 4 years now but did have a relapse about a year and a half ago, one time, none since. She does continue to smoke cigarettes, however. She is not very happy with her weight as she has been eating healthier and doing her exercise. She is 262 pounds, which is down over 25 pounds since her last visit in 09/2022. She has been working very hard since 07/2022 and has lost 53 pounds since then. She had fasting labs in 05/2022 and blood sugar was elevated at 115 mg/dL. I got an A1c to rule out diabetes. We did a point of care test in the office; the finger poke test and it was 5.6 percent at that time. I told her that this was normal; however, now we have noticed that the point of care testing is about 1 point consistently less than the venipuncture, so we could recheck this as she is interested in GLP-1 use for weight loss; however, I am assuming with her weight loss on her own, her blood glucose has gotten better. Also, she is interested in control. She used to be on a control pill, but forgot to take it daily; however, she is taking her hypertension medication daily, so thinks she could take control with it. The patient is feeling much better. She feels like her weight plateaued and has been in the range of 260 and 264 pounds. She has been stuck at 262 to 264 pounds for a while. She denies eating more. She is still having occasional palpitations. She has never taken Adipex before. She has never tried anything for weight loss other than diet and exercise. She is getting a gym membership. She would like to lose 20 to 30 more pounds. She would like to try a control pill again. She was taking control pill 10 years ago. Her periods are regular and heavy to normal for about 2 to 3 days. She is currently sexually active. Review of Systems All other systems are negative except as stated in the HPI. Physical Exam Vitals & Measurements HT: 68 in HT: 173 cm WT: 118.84 kg WT: 261.448 lb BMI: 39.71 Patient visualized on ipad screen. Sitting up in chair at their home. Appears well. Denies pain. Alert and oriented x3, normal mood and affect, speech normal, judgement and reasoning good. No cough noted, no conversational dyspnea or audible wheezing heard. Respiratory effort normal. Assessment/Plan This visit was conducted via two-way, real-time interactive video communications by Elise GODINEZ CNP from my home using [employer]. The patient was located at their home, located at [address] [place] [phone], with no one else in attendance. A (more content not included)... Normal [facility] Comment on above: Result Comment: Elec tronically Signed By: Elise GODINEZ CNP\.br\Date and Time Signed: 04/21/23 07:29 EST\.br\Electronically Co-Signed By: Jesus Whyte\.br\Date and Time Co-Signed: 04/20/23 18:06 EST Patient Educationon 04-20-19 Patient Education Gastroenterology Obesity, Adult Obesity is having too much body fat. Being obese means that your weight is more than what is healthy for you. BMI (body mass index) is a number that explains how much body fat you have. If you have a BMI of 30 or more, you are obese. Obesity can cause serious health problems, such as: ? Stroke. ? Coronary artery disease (CAD). ? Type 2 diabetes. ? Some types of cancer. ? High blood pressure (hypertension). ? High cholesterol. ? Gallbladder stones. Obesity can also contribute to: ? Osteoarthritis. ? Sleep apnea. ? Infertility problems. What are the causes? ? Eating meals each day that are high in calories, sugar, and fat. ? Drinking a lot of drinks that have sugar in them. ? Being born with genes that may make you more likely to become obese. ? Having a medical condition that causes obesity. ? Taking certain medicines. ? Sitting a lot (having a sedentary lifestyle). ? Not getting enough sleep. What increases the risk? ? Having a family history of obesity. ? Living in an area with limited access to: ? [place], recreation centers, or sidewalks. ? Healthy food choices, such as grocery stores and [employer] markets. What are the signs or symptoms? The main sign is having too much body fat. How is this treated? Treatment for this condition often includes changing your lifestyle. Treatment may include: ? Changing your diet. This may include making a healthy meal plan. ? Exercise. This may include activity that causes your heart to beat faster (aerobic exercise) and strength training. Work with your doctor to design a program that works for you. ? Medicine to help you lose weight. This may be used if you are not able to lose one pound a week after 6 weeks of healthy eating and more exercise. ? Treating conditions that cause the obesity. ? Surgery. Options may include gastric banding and gastric bypass. This may be done if: ? Other treatments have not helped to improve your condition. ? You have a BMI of 40 or higher. ? You have life-threatening health problems related to obesity. Follow these instructions at home: Eating and drinking ? Follow advice from your doctor about what to eat and drink. Your doctor may tell you to: ? Limit fast food, sweets, and processed snack foods. ? Choose low-fat options. For example, choose low-fat milk instead of whole milk. ? Eat five or more servings of fruits or vegetables each day. ? Eat at home more often. This gives you more control over what you eat. ? Choose healthy foods when you eat out. ? Learn to read food labels. This will help you learn how much food is in one serving. ? Keep low-fat snacks available. ? Avoid drinks that have a lot of sugar in them. These include soda, fruit juice, iced tea with sugar, and flavored milk. ? Drink enough water to keep your pee (urine) pale yellow. ? Do not go on fad diets. Physical activity ? Exercise often, as told by your doctor. Most adults should get up to 150 minutes of moderate-intensity exercise every week.Ask your doctor: ? What types of exercise are safe for you. ? How often you should exercise. ? Warm up and stretch before being active. ? Do slow stretching after being active (cool down). ? Rest between times of being active. Lifestyle ? Work with your doctor and a food expert (dietitian) to set a weight-loss goal that is best for you. ? Limit your screen time. ? Find ways to reward yourself that do not involve food. ? Do not drink alcohol if: ? Your doctor tells you not to drink. ? You are , may be , or are planning to become . ? If you drink alcohol: ? Limit how much you have to: ? 0?1 drink a day for women. ? 0?2 drinks a day for men. ? Know how much alcohol is in your drink. In the [place] one drink equals one 12 oz bottle of beer (355 mL), one 5 oz glass of wine (148 mL), or one 1? oz glass of hard liquor (44 mL). General instructions ? Keep a weight-loss journal. This can help you keep track of: ? The food that you eat. ? How much exercise you get. ? Take tnrc-vsv-msujyjf and prescription medicines only as told by your doctor. ? Take vitamins and supplements only as told by your doctor. ? Think about joining a support group. ? Pay attention to your mental health as obesity can lead to depression or self esteem issues. ? Keep all follow-up visits. Contact a doctor if: ? You cannot meet your weight-loss goal after you have changed your diet and lifestyle for 6 weeks. ? You are having trouble breathing. Summary ? Obesity is having too much body fat. ? Being obese means that your weight is more than what is healthy for you. ? Work with your doctor to set a weight-loss goal. ? Get regular exercise as told by your doctor. This information is not intended to replace advice given to you by your health care provider. Make sure you discuss any questions you have with yo (more content not included)... Normal [facility] PAP [id number] 10-28-2022 Cytology report Cyto stain Doc (Cvx/Vag) Note Invalid Interpretation Code [facility] Comment on above: Result Comment: TEST S RESULT FLAG UNITS REF RANGE LAB Clinician Provided Cytology Information Source.............Endocervix No. of containers..01 ThinPrep Vial DIAGNOSIS: 01 NEGATIVE FOR INTRAEPITHELIAL LESION OR MALIGNANCY. Specimen adequacy: 01 Satisfactory for evaluation. Endocervical and/or squamous metaplastic cells (endocervical component) are present. Performed by: 01 Mejia Isaac, Physician'S Assistant (ASCP) . 01 Note: Note 01 The Pap smear is a screening test designed to aid in the detection of premalignant and malignant conditions of the uterine cervix. It is not a diagnostic procedure and should not be used as the sole means of detecting cervical cancer. Both false-positive and false-negative reports do occur. Test Methodology: Note 01 This liquid based ThinPrep(R) pap test was screened with the use of an image guided system. HPV Genotype Reflex Note 01 Criteria not met, HPV Genotype not performed. FLAG LEGEND: L-Low Normal,H-High Normal,LL-Alert Low,HH-Alert High <-Panic Low,>-Panic High,A-Abnormal,AA-Critical Abnormal Performed at: [address] [facility] [address] [id number] Kindra Wallace MD, Performed By: #### 1 [id number] ####[facility] [address] [place] [address] HPV 16+18+31+33+35+39+45+51 +52+56+58+59+66+68 DNA Probe+sig amp Ql (Cvx) Negative Invalid Interpretation Code Negative [facility] Comment on above: Result Comment: This nucleic acid amplification test detects fourteen high-risk HPV types (16,18,31,33,35,39,45,51,52,56,58,59,66,68) without differentiation. Performed at: [facility] [address] [id number] MD Rodrigo Arguelles Performed at: =[facility] [address] [id number] MD Rodrigo Arguelles Performed By: #### 1 [id number] ####[facility] [id number] [place] [address] Ambulatory Visit Summaryon 0 10-22-2022 Ambulatory Visit Summary PERLA SPANN :1990 Visit Date:10/22/2022 Ambulatory Visit Instructions Your Diagnosis HTN (hypertension) Screening for cervical cancer Nicotine addiction BMI 40.0-44.9, adult Your Care Team Attending Physician - Elise GODINEZ CNP Primary Care Physician - Elise GODINEZ CNP This Is Your Medications List Contact prescribing physician if questions or concerns buprenorphine-naloxon e (Suboxone 8 mg-2 mg sublingual film) cyclobenzaprine (cyclobenzaprine 10 mg Tab) hydrochlorothiazide (hydrochlorothiazide 25 mg Tab) lisinopril (lisinopril 40 mg Tab) Procedures Performed Tonsillectomy (1996). Discharge Vitals Blood Pressure 127/80 Height 173 cm Height 68 in Weight 131.8 kg Weight 289.96 lb BMI 44.04 What to do next Scheduled Follow-Up Appointments Wednesday 4:40 PM EST With: Elise GODINEZ CNP Where: [facility] [place] Normal [facility] Family Medicine Office/Clini c Noteon 10-22-2022 Family Medicine Office/Clinic Note Chief Complaint HTN HPI Staff Patient is here for follow up on hypertension. HCTZ 25 mg daily added. How often are you checking your blood pressure? Not checking What are your average readings? Do you exercise? no Are you compliant with your medications? Yes Do you have side effects from the medication? No Do you have any of the following symptoms? Chest Pain? No Palpitations? No TORRES/SOB? No Headache? No Peripheral Edema? No Light Headedness? No Pap - Due, last done 6 yrs ago. Agreed to have it done at this f/u. BMP and Lipids - 4.3.23 Total - 167 Trigs - 79 HDL - 37 LDL - 122 The standard range for ages 18 and older is >=18.5 and < 25 kg/m2. Your BMI today was above this range, this falls in the overweight to obese category and there are medical benefits to weight loss. We can offer counselling, referral, and/or medical support in addressing this problem. Your BMI and weight management will be followed at subsequent visits. History of Present Illness Pt here today for 2 month f/u of HTN. Also due for pap. HCTZ added to Lisinopril 40mg as BP was not fully controlled on Lisinopril alone. 146/90 at the end of July. She continues to work on wt loss, is down another 15 lbs since I saw her last. Was 315 in July, down to 289 today. Denies chest pain, heart palpitations, sob, torres, edema, headaches. Last pap was 5 years ago, done at a [facility]. History of HPV a couple paps ago, never required colpo. Review of Systems PHQ Score Initial Depression Screen Score: 1 Physical Exam Vitals & Measurements BP: 127/80 SpO2: 99% HT: 68 in HT: 173 cm WT: 131.8 kg WT: 289.96 lb BMI: 44.04 General: Well developed, well nourished, in no acute distress obese, down 15 lbs Neck: Neck supple. No masses or palpable cervical nodes. Trachea midline. Thyroid without nodules, masses, tenderness, or enlargement Breast: No mass, nodule, discharge, or erythema bilaterally, and no axillary lymphadenopathy Lungs: Normal respiratory effort and clear to auscultation Cardio: Regular rate and rhythm, normal S1 and S2, no murmur, no rub Abdomen: Soft, non-distended, non-tender, normal bowel sounds x4 Gyno: normal external genitalia. Urethra no discharge. Vagina normal without lesions, no vaginal discharge. uterus normal, no adnexal masses. Cervix hard to find, I did obtain a sample that I think was close to the cervix but unsure it was be satisfactory sample Neurologic: Grossly normal Skin: [place], moist, no tenting Lymph Nodes: No cervical adenopathy, nodes normal Mental Status: Alert and oriented x3. Normal mood and affect Assessment/Plan 1. HTN (hypertension) (I10: Essential (primary) hypertension) BP now well controlled Cont Lisinopril and HCTZ DASH diet and weight loss encouraged 2. Screening for cervical cancer (Z12.4: Encounter for screening for malignant neoplasm of cervix) Sample sent but it may not be a satisfactory sample as I had a hard time finding her cervix. 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 Nicotine addiction (F17.200: Nicotine dependence, unspecified, uncomplicated) Refuses cessation We strongly recommend to quit tobacco use. Cigarette smoking harms nearly every organ of the body, causes many diseases, and reduces the health of smokers in general. Quitting smoking lowers your risk for smoking-related diseases and can add years to your life. We encourage you to visit www.smokefree.gov access to helpful resources including free telephone support. If you decide on prescription treatment to help you quit, we would be happy to provide these. 4. BMI 40.0-44.9, adult (Z68.41: Body mass index [BMI] 40.0-44.9, adult) Praise given for wt loss Discussed health risks of obesity Encouraged healthy, balanced diet low in sugar, fat, carbs Encouraged exercise regimen Follow-up With When Contact Information Elise GODINEZ CNP In 6 months [address] [place] [address]- Additional Instructions: Patient Education Colposcopy, Care After, Jzpe-oc-Ouxr Problem List/Past Medical History Ongoing HCV (hepatitis C virus) History of drug abuse HTN (hypertension) Nicotine addiction PTSD (post-traumatic stress disorder) Screening for cervical cancer Historical No qualifying data Procedure/Surgical History Tonsillectomy (1996). Medications cyclobenzaprine 10 mg Tab, 10 mg= 1 tab(s), Oral, BID, PRN, 5 refills hydrochlorothiazide 25 mg Tab, 25 mg= 1 tab(s), Oral, Daily, 3 refills lisinopril 40 mg Tab, 40 mg= 1 tab(s), Oral, Daily, 3 refills Suboxone 8 mg-2 mg sublingual film, 1 film, SubLingual, Daily Allergies No Known Medication Allergies Social History Alcohol - Denies Alcohol Use, 04/18/2022 Substance Abuse - Denies Substance Abuse, 04/18/2022 Tobacco - Denies Tobacco Use, 04/18/2022 Former smoker, (more content not included)... Normal [facility] Comment on above: Result Comment: Elec tronically Signed By: Elise GODINEZ CNP\.br\Date and Time Signed: 10/22/22 16:51 EDT PAP [id number] 10-22-2022 Gynecological Body Site [facility]ERVIX [facility] Comment on above: Performed By: #### 1 [id number] ####Naidu [facility] [address] [place] [id number] Patient Educationon 10-23-19 Patient Education Obstetrics and Gynecology Colposcopy, Care After The following information offers guidance on how to care for yourself after your procedure. Your doctor may also give you more specific instructions. If you have problems or questions, contact your doctor. What can I expect after the procedure? If you did not have a sample of your tissue taken out (did not have a biopsy), you may only have some spotting of blood for a few days. You can go back to your normal activities. If you had a sample of your tissue taken out, it is common to have: ? Soreness and mild pain. These may last for a few days. ? Mild bleeding or fluid (discharge) coming from your vagina. The fluid will look dark and grainy. You may have this for a few days. The fluid may be caused by a liquid that was used during your procedure. You may need to wear a sanitary pad. ? Spotting of blood for at least 48 hours after the procedure. Follow these instructions at home: Medicines ? Take aush-knc-uawguzs and prescription medicines only as told by your doctor. ? Ask your doctor what ejhc-mld-xlbajzf pain medicines and prescription medicines you can start taking again. This is very important if you take blood thinners. Activity ? For at least 3 days, or for as long as told by your doctor, avoid: ? Douching. ? Using tampons. ? Having sex. ? Return to your normal activities as told by your doctor. Ask your doctor what activities are safe for you. General instructions ? Ask your doctor if you may take baths, swim, or use a hot tub. You may take showers. ? If you use control (contraception), keep using it. ? Keep all follow-up visits. Contact a doctor if: ? You have a fever or chills. ? You faint or feel light-headed. Get help right away if: ? You bleed a lot from your vagina. A lot of bleeding means that the bleeding soaks through a pad in less than 1 hour. ? You have clumps of blood (blood clots) coming from your vagina. ? You have signs that could mean you have an infection. This may be fluid coming from your vagina that is: ? Different than normal. ? Yellow. ? Bad-smelling. ? You have very bad pain or cramps in your lower belly that do not get better with medicine. Summary ? If you did not have a sample of your tissue taken out, you may only have some spotting of blood for a few days. You can go back to your normal activities. ? If you had a sample of your tissue taken out, it is common to have mild pain for a few days and spotting for 48 hours. ? Avoid douching, using tampons, and having sex for at least 3 days after the procedure or for as long as told. ? Get help right away if you have a lot of bleeding, very bad pain, or signs of infection. This information is not intended to replace advice given to you by your health care provider. Make sure you discuss any questions you have with your health care provider. Document Revised: 07/13/2021 Document Reviewed: 07/13/2021 [employer] Patient Education ? 2022 [employer]. Normal [facility] Family Medicine Office/Clini c Noteon 08-31-2022 Family Medicine Office/Clinic Note Chief Complaint HTN HPI Staff Patient is here for follow up on hypertension. Lisinopril increased to 40 mg dialy. How often are you checking your blood pressure? Not checking What are your average readings? N/A Do you exercise? _ Are you compliant with your medications? Do you have side effects from the medication? No Do you have any of the following symptoms? Chest Pain? No Palpitations? No TORRES/SOB? No Headache? No Peripheral Edema? Random swelling in her left ankle. Light Headedness? No Pt states she has felt really good with the increase of the Lisinopril. Pap - Due, last done 6 yrs ago. Pt will hae it done at her next routine f/u. BMP and Lipids - 4.3.23 Total - 167 Trigs - 79 HDL - 37 LDL - 122 The standard range for ages 18 and older is >=18.5 and < 25 kg/m2. Your BMI today was above this range, this falls in the overweight to obese category and there are medical benefits to weight loss. We can offer counselling, referral, and/or medical support in addressing this problem. Your BMI and weight management will be followed at subsequent visits. History of Present Illness Perla Spann is a 32-year-old female who presents today for a 2-month follow-up of hypertension. At her last visit, lisinopril was maxed out to 40 mg as her blood pressure was still borderline at 138/81 mmHg. She established a local GI for hepatitis C treatment. She is down 13 lbs. since I saw her last. She does not check her blood pressure at home. She is compliant with her lisinopril. Denies chest pain, heart palpitations, sob, torres, headaches. No edema. She does have intermittent swelling just in her left ankle at times. She is feeling very well, much better after the increase of lisinopril. No complaints today. She has lost 13 lbs. since her last visit. She has cut out soda from her diet but still has 1 can of soda a day. She is watching what she eats and walking. She knows she needs to do more activities than that. She was 320 lbs. before and now down to 304 lbs. She saw her fur joiner on 07/30/2022 and her blood pressure was 155/90 mmHg. She has not started treatment yet. She had a scan, and she is waiting to hear back. Her blood pressure today is 146/90 mmHg. She is agreeable to adding hydrochlorothiazide to her lisinopril. Her job requires sitting a lot and she is planning to look for another job soon. She needs a refill on her muscle relaxer. She takes it during the day once or twice a week. Her Pap smear was 5 years ago. She has a history of HPV. [facility]. Review of Systems PHQ Score Initial Depression Screen Score: 1 Physical Exam Vitals & Measurements HR: 91(Peripheral) BP: 146/86 SpO2: 98% HT: 68 in HT: 173 cm WT: 138.5 kg WT: 304.7 lb BMI: 46.28 General: Obese, but down almost 15 pounds. Lungs: Normal respiratory effort and clear to auscultation Cardio: Regular rate and rhythm, normal S1 and S2, no murmur, no rub Extremity: No pitting edema in the legs. Assessment/Plan 1. HTN (hypertension) (I10: Essential (primary) hypertension) Blood pressure is not fully controlled. Add hydrochlorothiazide to lisinopril. DASH diet and weight loss encouraged. Follow up in 1 month 2. Nicotine addiction (F17.200: Nicotine dependence, unspecified, uncomplicated) Refuses cessation We strongly recommend to quit tobacco use. Cigarette smoking harms nearly every organ of the body, causes many diseases, and reduces the health of smokers in general. Quitting smoking lowers your risk for smoking-related diseases and can add years to your life. We encourage you to visit www.smokefree.gov access to helpful resources including free telephone support. If you decide on prescription treatment to help you quit, we would be happy to provide these. 3. BMI 45.0-49.9, adult (Z68.42: Body mass index [BMI] 45.0-49.9, adult) Discussed health risks of obesity Encouraged healthy, balanced diet low in sugar, fat, carbs Encouraged exercise regimen Portions of this record may have been created with voice recognition artificial intelligence software, specifically [employer], [employer] and or [email or web address]. Substitutions may have occurred voice recognition and artificial intelligence software. ATTESTATION: Documentation services were performed after patient or guardian consented to allow [employer] to record this visit. ANDREY internet network specialist and provider reviewed before signing. ANDREY: Pina Thomas Follow-up With When Contact Information Elise GODINEZ CNP In 1 month [address] [place] [address]- Additional Instructions: Patient Education Obesity, Adult, Vmtb-fh-Byld E-Cigarette or Vaping Use-Associated Lung Injury Problem List/Past Medical History Ongoing BMI 45.0-49.9, adult HCV (hepatitis C virus) History of drug abuse HTN (hypertension) Nicotine addiction PTSD (post-traumatic stress disorder) Historical No qualifying anika (more content not included)... Normal [facility] Comment on above: Result Comment: Elec tronically Signed By: Elise GODINEZ CNP\.br\Date and Time Signed: 08/31/22 10:36 EDT\.br\Electronically Co-Signed By: Sujey Salguero\.br\Date and Time Co-Signed: 08/28/22 10:30 EDT Patient Educationon 08-28-19 Patient Education Gastroenterology Obesity, Adult Obesity is having too much body fat. Being obese means that your weight is more than what is healthy for you. BMI (body mass index) is a number that explains how much body fat you have. If you have a BMI of 30 or more, you are obese. Obesity can cause serious health problems, such as: ? Stroke. ? Coronary artery disease (CAD). ? Type 2 diabetes. ? Some types of cancer. ? High blood pressure (hypertension). ? High cholesterol. ? Gallbladder stones. Obesity can also contribute to: ? Osteoarthritis. ? Sleep apnea. ? Infertility problems. What are the causes? ? Eating meals each day that are high in calories, sugar, and fat. ? Drinking a lot of drinks that have sugar in them. ? Being born with genes that may make you more likely to become obese. ? Having a medical condition that causes obesity. ? Taking certain medicines. ? Sitting a lot (having a sedentary lifestyle). ? Not getting enough sleep. What increases the risk? ? Having a family history of obesity. ? Living in an area with limited access to: ? [place], recreation centers, or sidewalks. ? Healthy food choices, such as grocery stores and tastytrade. What are the signs or symptoms? The main sign is having too much body fat. How is this treated? Treatment for this condition often includes changing your lifestyle. Treatment may include: ? Changing your diet. This may include making a healthy meal plan. ? Exercise. This may include activity that causes your heart to beat faster (aerobic exercise) and strength training. Work with your doctor to design a program that works for you. ? Medicine to help you lose weight. This may be used if you are not able to lose one pound a week after 6 weeks of healthy eating and more exercise. ? Treating conditions that cause the obesity. ? Surgery. Options may include gastric banding and gastric bypass. This may be done if: ? Other treatments have not helped to improve your condition. ? You have a BMI of 40 or higher. ? You have life-threatening health problems related to obesity. Follow these instructions at home: Eating and drinking ? Follow advice from your doctor about what to eat and drink. Your doctor may tell you to: ? Limit fast food, sweets, and processed snack foods. ? Choose low-fat options. For example, choose low-fat milk instead of whole milk. ? Eat five or more servings of fruits or vegetables each day. ? Eat at home more often. This gives you more control over what you eat. ? Choose healthy foods when you eat out. ? Learn to read food labels. This will help you learn how much food is in one serving. ? Keep low-fat snacks available. ? Avoid drinks that have a lot of sugar in them. These include soda, fruit juice, iced tea with sugar, and flavored milk. ? Drink enough water to keep your pee (urine) pale yellow. ? Do not go on fad diets. Physical activity ? Exercise often, as told by your doctor. Most adults should get up to 150 minutes of moderate-intensity exercise every week.Ask your doctor: ? What types of exercise are safe for you. ? How often you should exercise. ? Warm up and stretch before being active. ? Do slow stretching after being active (cool down). ? Rest between times of being active. Lifestyle ? Work with your doctor and a food expert (dietitian) to set a weight-loss goal that is best for you. ? Limit your screen time. ? Find ways to reward yourself that do not involve food. ? Do not drink alcohol if: ? Your doctor tells you not to drink. ? You are , may be , or are planning to become . ? If you drink alcohol: ? Limit how much you have to: ? 0?1 drink a day for women. ? 0?2 drinks a day for men. ? Know how much alcohol is in your drink. In the [place] one drink equals one 12 oz bottle of beer (355 mL), one 5 oz glass of wine (148 mL), or one 1? oz glass of hard liquor (44 mL). General instructions ? Keep a weight-loss journal. This can help you keep track of: ? The food that you eat. ? How much exercise you get. ? Take pgni-yeb-pessbuf and prescription medicines only as told by your doctor. ? Take vitamins and supplements only as told by your doctor. ? Think about joining a support group. ? Pay attention to your mental health as obesity can lead to depression or self esteem issues. ? Keep all follow-up visits. Contact a doctor if: ? You cannot meet your weight-loss goal after you have changed your diet and lifestyle for 6 weeks. ? You are having trouble breathing. Summary ? Obesity is having too much body fat. ? Being obese means that your weight is more than what is healthy for you. ? Work with your doctor to set a weight-loss goal. ? Get regular exercise as told by your doctor. This information is not intended to replace advice given to you by your health care provider. Make sure you discuss any questions you have with yo (more content not included)... Normal [facility] .Cannabinoid Confirmation, U laura 08-17-2022 Cannabinoids Confirm (U) [Mass/Vol] Positive Abnormal Cutoff=50 [facility] Comment on above: Performed By: #### 2 [id number], [id number] ####[facility] [address] [place] [address] Carboxy tetrahydrocannabinol (U) [Mass/Vol] 364 ng/mL Invalid Interpretation Code Cutoff=15 [facility] Comment on above: Result Comment: Perf ormed at: [facility] [place] [address], [place] [id number] PhD Teresa Rodriguez Performed By: #### 2 [id number], [id number] ####[facility] [address] [place] [address] Postoperative Documentson Postoperative Documents [id number] .00CD:127 Normal [facility] Urine 7 Drugs+Alcoholon 07-30 Benzoylecgonine Ql (U) Negative Invalid Interpretation Code Vafcuo=345 [facility] Comment on above: Performed By: #### 2 [id number], [id number] ####[facility] [address] [place] [address] Ethanol (U) [Mass/Vol] Negative Invalid Interpretation Code Cutoff=0.020 [facility] Comment on above: Result Comment: Perf ormed at: [facility] [place] [address], [place] [id number] PhD Abtommyu Ntei Performed By: #### 2 [id number], [id number] ####[facility] [address] [place] [address] Opiates Ql (U) Negative Invalid Interpretation Code Mcmjqi=184 [facility] Comment on above: Result Comment: Opia te test includes Codeine and Morphine only. Performed By: #### 2 [id number], [id number] ####[facility] [address] [place] [address] Phencyclidine Ql (U) Negative Invalid Interpretation Code Cutoff=25 [facility] Comment on above: Performed By: #### 2 [id number], [id number] ####[facility] [address] [facility] [place] [address] Amphetamines Screen Ql (U) Negative Invalid Interpretation Code Ccbexj=6496 [facility] Comment on above: Result Comment: Amph etamine test includes Amphetamine and Methamphetamine. Performed By: #### 2 [id number], [id number] ####[facility] [address] [place] [address] Barbiturates Screen Ql (U) Negative Invalid Interpretation Code Kemmsj=713 [facility] Comment on above: Performed By: #### 2 [id number], [id number] ####[facility] [address] [place] [place] [address] Benzodiazepines Ql (U) Negative Invalid Interpretation Code Wiptuy=994 [facility] Comment on above: Performed By: #### 2 [id number], [id number] ####[facility] [address] [place] [address] Cannabinoids Screen Ql (U) See Final Results Invalid Interpretation Code Cutoff=50 [facility] Comment on above: Result Comment: Perf ormed at: [facility] [place] [address] [place], [place] [id number] PhD Merylu Ntei Performed By: #### 2 [id number], [id number] ####[facility] [address] [place] [address] HCV Genotyping Non Reflexon 06-18-2023 HCV genotype LALITA+probe Nom 3 Invalid Interpretation Code [facility] Comment on above: Performed By: #### 9 [id number], [id number], 0130346, 7000862, 1058891, 8494674, [id number], [id number] ####[facility] [address] [place] [address] Laboratory comment Prateek (Report) Comment Invalid Interpretation Code [facility] Comment on above: Result Comment: This test was developed and its performance characteristics determined by [facility]. It has not been cleared or approved by the U.S. Food and Drug Administration. The FDA has determined that such clearance or approval is not necessary. This test is used for clinical purposes. It should not be regarded as investigational or for research. Performed at: [address] [id number] MD Omar Levine Performed By: #### 9 [id number], [id number], 2689830, 9158266, 4656525, 0392059, 50984377, [id number] ####[facility] [address] [place] [address] HIV Screen 4th Generation wR fxon 08-16-2022 HIV 1+2 Ab+HIV1 p24 Ag IA Ql Non-Reactive Invalid Interpretation Code Non Reactive [facility] Comment on above: Result Comment: HIV Negative HIV-1/HIV-2 antibodies and HIV-1 p24 antigen were NOT detected. There is no laboratory evidence of HIV infection. Performed at: [address] [id number] PhD Stephanie Moreau Performed By: #### 9 [id number], [id number], 8863505, 7923322, 0896356, 6993506, 14575741, [id number] ####[facility] [address] [place] [address] Hep Bs Abon 08-16-2022 HBV surface Ab Ql (S) Non-Reactive Invalid Interpretation Code [facility] Comment on above: Result Comment: Non Reactive: Inconsistent with immunity, less than 10 mIU/mL Reactive: Consistent with immunity, greater than 9.9 mIU/mL Performed at: [facility] [address] [place], [place] [id number] PhD Stephanie Moreau Performed By: #### 9 [id number], 1679474, 6923642, 2827575, 2859270, 2287383, 30375711, [id number] ####[facility] [address] [place] [address] Hep Bs Agon 08-16-2022 HBV surface Ag IA Ql Negative Invalid Interpretation Code Negative [facility] Comment on above: Result Comment: Perf ormed at: [facility] [address] [place], [place] [id number] PhD Stephanie Moreau Performed By: #### 9 [id number], 9200858, 6553243, 4833814, 3983553, 1627875, 29598270, [id number] ####[facility] [address] [place] [address] Physician Orderon 08-13-2022 Physician Order [id number] 1.00CD:127 Normal [facility] Auto Diffon 08-12-2022 Basophils/100 WBC (Bld) 1.0 % Normal 0.0-2.0 [facility] Comment on above: Order Comment: Order Added by Discern Expert. Performed By: #### 9 [id number], 1543418, 2512869, 0556588, 3510857, 9060139, 13543898, [id number] ####[facility] [address] [place] [address] Basophils/Leukocytes Auto (Bld) [Pure # fraction] 0.1 E9/L Normal 0.0-0.2 [facility] Comment on above: Order Comment: Order Added by Discern Expert. Performed By: #### 9 [id number], 7746664, 6031260, 6262578, 1573531, 0943502, 69658545, [id number] ####[facility] [address] [place] [address] Eosinophils/100 WBC (Bld) 2.1 % Normal 0.0-8.0 [facility] Comment on above: Order Comment: Order Added by Discern Expert. Performed By: #### 9 [id number], 2195900, 8342847, 8956229, 1306800, 9853607, 04832902, 84069434 ####[facility] [address] [place] [address] Eosinophils/Leukocytes Auto (Bld) [Pure # fraction] 0.2 E9/L Normal 0.0-0.5 [facility] Comment on above: Order Comment: Order Added by Soila Expert. Performed By: #### 9 [id number], 0903547, 3140559, 5347552, 0767107, 6973540, 34816447, 35261244 ####[facility] [address] [place] [address] Lymphocytes/100 WBC (Bld) 29.0 % Normal 14.0-50.0 [facility] Comment on above: Order Comment: Order Added by Soila Expert. Performed By: #### 9 [id number], 5805707, 4337197, 5425023, 2533722, 6959923, 12303951, 64486120 ####[address] [place] [address] Lymphocytes/Leukocytes Auto (Bld) [Pure # fraction] 2.6 E9/L Normal 1.0-4.0 [facility] Comment on above: Order Comment: Order Added by Soila Expert. Performed By: #### 9 [id number], 2371341, 4206919, 4327102, 3046557, 9881851, 65533202, 01505399 ####[facility] [address] [place] [address] Monocytes/100 WBC (Bld) 7.6 % Normal 4.0-14.0 [facility] Comment on above: Order Comment: Order Added by Soila Expert. Performed By: #### 9 [id number], 0587643, 8477079, 4684580, 5153735, 3543063, 13131131, 84283382 ####[address] [place] [address] Monocytes/Leukocytes Auto (Bld) [Pure # fraction] 0.7 E9/L Normal 0.2-1.0 [facility] [facility] Comment on above: Order Comment: Order Added by Discern Expert. Performed By: #### 9 [id number], 2896346, 8447927, 2170806, 2000194, 8034323, 14959812, 81033879 ####[address] [place] [address] Neutrophils/100 WBC (Bld) 60.3 % Normal 36.0-75.0 [facility] Comment on above: Order Comment: Order Added by Discern Expert. Performed By: #### 9 [id number], 9317646, 4181958, 2750345, 1458240, 8191738, 24250070, 67245844 ####[address] [address] Neutrophils/Leukocytes Auto (Bld) [Pure # fraction] 5.3 E9/L Normal 2.0-7.5 [facility] Comment on above: Order Comment: Order Added by Discern Expert. Performed By: #### 9 [id number], 0717749, 6759116, 7522359, 5195396, 6427191, 68596545, 70607087 ####[address] [address] CBC w/ Auto Diffon 3 Erythrocyte distribution width (RBC) [Ratio] 13.8 % Normal 10.9-14.2 [facility] Comment on above: Performed By: #### 9 [id number], 3143320, 4571222, 6643995, 5103541, 6444880, 39064052, 05750499 ####[address] [place] [address] Hematocrit (Bld) [Volume fraction] 42.1 % Normal 34.0-46.0 [facility] Comment on above: Performed By: #### 9 [id number], 4607904, 6747112, 1503097, 1063255, 0453929, 34550135, 35100085 ####[facility] [address] [place] [address] Hemoglobin (Bld) [Mass/Vol] 14.2 g/dL Normal 12.0-16.0 [facility] Comment on above: Performed By: #### 9 [id number], 4585968, 5806437, 1553156, 3347222, 4049899, 74692349, 49036020 ####[address] [place] [address] MCH (RBC) [Entitic mass] 29.2 pg Normal 27.0-34.0 [facility] Comment on above: Performed By: #### 9 21464187, 7794053, 6916499, 3589504, 4849449, 9989639, 21121943, 31997706 ####[address] [address] MCHC (RBC) [Mass/Vol] 33.7 g/dL Normal 31.4-36.0 [facility] Comment on above: Performed By: #### 9 [id number], 5685465, 9041999, 5664590, 5701446, 1395355, 45894233, 95368501 ####[address] [address] MCV (RBC) [Entitic vol] 86.6 fL Normal 80.0-100.0 [facility] Comment on above: Performed By: #### 9 [id number], 0760181, 7047422, 2936331, 6215587, 2086513, 06009739, 90629232 ####[address] [place] [address] Platelet mean volume (Bld) [Entitic vol] 8.9 fL Normal 6.4-10.8 [facility] Comment on above: Performed By: #### 9 53050364, 5227632, 0478617, 7744777, 4825836, 8989567, 66575508, 21440310 ####[address] [place] [address] Platelets (Bld) [#/Vol] 257.0 E9/L Normal 150.0-500.0 [facility] Comment on above: Performed By: #### 9 58359633, 0621186, 2282963, 5769158, 9799026, 5106956, 76248178, 75995173 ####[facility] [address] [place] [address] RBC (Bld) [#/Vol] 4.9 E12/L Normal 4.3-5.9 [facility] Comment on above: Performed By: #### 9 [id number], 9010325, 8380329, 3525514, 6601675, 3712485, 09088923, 11201308 ####[facility] [address] [place] [address] WBC corrected for nucl RBC Auto (Bld) [#/Vol] 8.9 E9/L Normal 4.0-11.0 [facility] Comment on above: Performed By: #### 9 [id number], 7452861, 6441354, 2251913, 0633767, 4614360, 16252200, 22567259 ####[facility] [address] [place] [address] CHEMISTRYOrdered By: SYSTEM SYSTEM on 08-12-2022 Albumin [Mass/Vol] 4.2 g/dL Normal 3.3 - 5.0 gm/dL [facility] Albumin/Globulin [Mass ratio] 1.0 {ratio} Low 1.1 - 2.2 [facility] ALP [Catalytic activity/Vol] 73 [iU]/d Normal 21 - 98 Int._Unit/L [facility] ALT No additional P-5'-P [Catalytic activity/Vol] 93 [iU]/d High 6 - 46 Int._Unit/L [facility] Anion gap [Moles/Vol] 10 mmol/L Normal 6 - 16 mEq/L [facility] AST [Catalytic activity/Vol] 74 [iU]/d High 5 - 43 Int._Unit/L [facility] Bilirubin [Mass/Vol] 0.4 mg/dL Normal 0.0 - 1 .1 mg/dL [facility] Calcium [Mass/Vol] 9.5 mg/dL Normal 8.9 - 11. 1 mg/dL [facility] Chloride [Moles/Vol] 104 mmol/L Normal 101 - 1 11 mmol/L [facility] CO2 [Moles/Vol] 27 mmol/L Normal 21 - 31 mmol/L [facility] Creatinine [Mass/Vol] 0.8 mg/dL Normal 0.5 - 1.3 mg/dL [facility] GFR/1.73 sq M.predicted among non-blacks MDRD (S/P/Bld) [Vol rate/Area] 99 mL/min/1.73 m2 Normal >=59mL/min/1. 73 m2 FT Chem S Globulin (S) [Mass/Vol] 4.2 g/dL High 1.4 - 4.0 gm/dL [facility] Glucose [Mass/Vol] 119 mg/dL Normal 55 - 199 mg/dL [facility] Potassium [Moles/Vol] 4.4 mmol/L Normal 3.5 - 5.3 mmol/L [facility] Protein [Mass/Vol] 8.4 g/dL High 6.0 - 7.8 gm/dL [facility] Sodium [Moles/Vol] 137 mmol/L Normal 135 - 145 mmol/L [facility] Urea nitrogen [Mass/Vol] 16 mg/dL Normal 5 - 21 mg/dL [facility] Urea nitrogen/Creatinine [Mass ratio] 20 mg/mg Normal 10 - 20 [facility] CMPon 08-12-2022 Albumin [Mass/Vol] 4.2 g/dL Normal 3.3-5.0 [facility] Comment on above: Performed By: #### 9 [id number], 0817312, 5936436, 2756386, 4152915, 5156130, 50076497, 54122049 ####[facility] [address] [place] [address] Albumin/Globulin (S) [Mass conc ratio] 1.0 Low 1.1-2.2 [facility] Comment on above: Performed By: #### 9 21940812, 8934516, 3475358, 2226395, 3677831, 6135879, 88135075, 51003833 ####[facility] [address] [place] [address] ALP [Catalytic activity/Vol] 73 Int._Unit/L Normal 21-98 [facility] Comment on above: Performed By: #### 9 37544093, 7950002, 7210122, 0136963, 4824359, 7873447, 22993187, 19331740 ####[facility] [address] [place] [address] ALT No additional P-5'-P [Catalytic activity/Vol] 93 Int._Unit/L High 6-46 [facility] Comment on above: Performed By: #### 9 86664787, 7199902, 7210700, 6920956, 4311504, 5403518, 49107108, 81354549 ####[facility] [address] [place] [address] Anion gap [Moles/Vol] 10 mmol/L Normal 6-16 [facility] Comment on above: Performed By: #### 9 03233921, 6568872, 4283162, 8257338, 4975630, 4752813, 54792408, 70010374 ####[facility] [address] [place] [address] AST [Catalytic activity/Vol] 74 Int._Unit/L [facility] 5-43 [facility] Comment on above: Performed By: #### 9 63096954, 1687415, 3277315, 5885773, 8332027, 7265518, 14621118, 74265239 ####[facility] [address] [place] [address] Bilirubin [Mass/Vol] 0.4 mg/dL Normal 0.0-1.1 [facility] Comment on above: Performed By: #### 9 71232099, 8822543, 2724339, 4394299, 9956838, 3130203, 82775429, 81585135 ####[facility] [address] [place] [address] Calcium [Mass/Vol] 9.5 mg/dL Normal 8.9-11.1 [facility] Comment on above: Performed By: #### 9 76838793, 4109633, 7287623, 8016241, 2011242, 3289517, 88861198, 35023624 ####[facility] [address] [place] [address] Chloride [Moles/Vol] 104 mmol/L Normal 101-111 [facility] Comment on above: Performed By: #### 9 69851435, 1348532, 2366729, 9486731, 3037875, 5242274, 81012127, 04308845 ####[facility] [address] [place] [address] CO2 [Moles/Vol] 27 mmol/L Normal 21-31 [facility] Comment on above: Performed By: #### 9 53863338, 0538812, 6311452, 7348669, 7247927, 6986658, 59438267, 44872869 ####[facility] [address] [place] [address] Creatinine [Mass/Vol] 0.8 mg/dL Normal 0.5-1.3 [facility] Comment on above: Performed By: #### 9 20369902, 1412875, 8053446, 9704271, 5451465, 6711627, 43864926, 02908322 ####[facility] [address] [place] [address] Globulin (S) [Mass/Vol] 4.2 g/dL High 1.4-4.0 [facility] Comment on above: Performed By: #### 9 11140443, 9748577, 6909431, 7608216, 5385636, 8749620, 36912299, 58531708 ####[facility] [address] [place] [address] Glucose [Mass/Vol] 119 mg/dL Normal 55-199 [facility] Comment on above: Result Comment: If t his glucose result represents a fasting glucose, interpretation should refer to the following reference range: 55-99 mg/dL Performed By: #### 9 92163430, 2125856, 1470972, 6872158, 8091475, 5869890, 15564749, 61890289 ####[facility] [address] [place] [address] Potassium [Moles/Vol] 4.4 mmol/L Normal 3.5-5.3 [facility] Comment on above: Performed By: #### 9 47481383, 0359492, 7518350, 5674946, 3369334, 6000600, 47470846, 59015068 ####[facility] [address] [place] [address] Protein [Mass/Vol] 8.4 g/dL High 6.0-7.8 [facility] Comment on above: Performed By: #### 9 35667121, 1177002, 8492872, 6056159, 1874933, 8950037, 46831519, 52558813 ####[facility] [address] [place] [address] Sodium [Moles/Vol] 137 mmol/L Normal 135-145 [facility] Comment on above: Performed By: #### 9 49473172, 8425888, 0406586, 3739641, 9178275, 4931454, 52762462, 46294264 ####[facility] [address] [place] [address] Urea nitrogen [Mass/Vol] 16 mg/dL Normal 5-21 [facility] Comment on above: Performed By: #### 9 17013988, 7036054, 4900792, 8092167, 8635610, 9207437, 24951035, 42866436 ####[facility] [address] [place] [address] Urea nitrogen/Creatinine [Mass ratio] 20 No Units Normal 10-20 [facility] Comment on above: Performed By: #### 9 73562394, 8520046, 3089511, 1829883, 0807364, 2456906, 88266061, 18252159 ####[facility] [address] [place] [address] Consent for Treatmenton 07-30 Consent for Treatment [id number] Normal [facility] HEMATOLOGYOrdered By: SYSTEM SYSTEM on 08-12-2022 Basophils/100 WBC (Bld) 1.0 % Normal 0.0 - 2.0 % [facility] Basophils/Leukocytes Auto (Bld) [Pure # fraction] 0.1 E9/L Normal 0.0 - 0.2 E9/L [facility] Eosinophils/100 WBC (Bld) 2.1 % Normal 0.0 - 8.0 % [facility] Eosinophils/Leukocytes Auto (Bld) [Pure # fraction] 0.2 E9/L Normal 0.0 - 0.5 E9/L [facility] Lymphocytes/100 WBC (Bld) 29.0 % Normal 14.0 - 50.0 % [facility] Lymphocytes/Leukocytes Auto (Bld) [Pure # fraction] 2.6 E9/L Normal 1.0 - 4.0 E9/L [facility] Monocytes/100 WBC (Bld) 7.6 % Normal 4.0 - 14.0 % [facility] Monocytes/Leukocytes Auto (Bld) [Pure # fraction] 0.7 E9/L Normal 0.2 - 1.0 E9/L [facility] Neutrophils/100 WBC (Bld) 60.3 % Normal 36.0 - 75.0 % [facility] Neutrophils/Leukocytes Auto (Bld) [Pure # fraction] 5.3 E9/L Normal 2.0 - 7.5 E9/L [facility] HEMATOLOGYOrdered By: Reggie Ribeiro on 08-12-2022 Erythrocyte distribution width (RBC) [Ratio] 13.8 % Normal 10.9 - 14.2 % [facility] Hematocrit (Bld) [Volume fraction] 42.1 % Normal 34.0 - 46.0 % [facility] Hemoglobin (Bld) [Mass/Vol] 14.2 g/dL Normal 12.0 - 16.0 gm/dL [facility] MCH (RBC) [Entitic mass] 29.2 pg Normal 27.0 - 34.0 pg [facility] MCHC (RBC) [Mass/Vol] 33.7 g/dL Normal 31.4 - 36.0 gm/dL [facility] MCV (RBC) [Entitic vol] 86.6 fL Normal 80.0 - 100.0 fL [facility] Platelet mean volume (Bld) [Entitic vol] 8.9 fL Normal 6.4 - 10.8 fL [facility] Platelets (Bld) [#/Vol] 257.0 E9/L Normal 150. 0 - 500.0 E9/L [facility] RBC (Bld) [#/Vol] 4.9 E12/L Normal 4.3 - 5.9 E12/L [facility] WBC corrected for nucl RBC Auto (Bld) [#/Vol] 8.9 E9/L Normal 4.0 - 11.0 E9/L [facility] eGFRon 08-12-2022 GFR/1.73 sq M.predicted among non-blacks MDRD (S/P/Bld) [Vol rate/Area] 99 mL/min/1.73 m2 Normal >=59 [facility] Comment on above: Order Comment: Order added by Discern Expert. Result Comment: Floor Steward/Stewardess torey kidney disease could be indicated at eGFR's of less than 60 mL/min/1.73m2. Kidney failure is indicated at less than 15 mL/min/1.73m2. Performed By: #### 9 [id number], 9820063, 9625224, 0834795, 6515340, 0956776, 98152683, 82593386 ####[facility] [address] [place] [address] Gastroenterology Office/Clin ic Noteon 08-04-2022 Gastroenterology Office/Clinic Note Chief Complaint ref by tabitha- hep c HPI Staff Patient is a 32 year old female who was referred by Tabitha for a positive Hep. C test. Patient has hx of prior drug abuse (Percocet, Vicodin and occasionally Fentanyl). She relapsed and has been clean for 2.5 years. History of Present Illness Perla Spann is a 32-year-old white female who was referred to me for positive hepatitis C. She reports that she found out about her hepatitis C diagnosis 6 to 7 weeks ago. She believes that she contracted hepatitis C 3 to 5 years ago when she used IV drugs. She has been on Suboxone for approximately 3.5 years. Her last drug use relapse was 1 year ago and last IV drug relapse was 3 years ago. She has not been tested for hepatitis B or HIV. She denies any other GI complaints. Review of Systems PHQ Score Initial Depression Screen Score: 0 Constitutional: No fever, no chills, no sweats, no weakness Skin: No Jaundice, no rash, no lesions, no petechiae ENMT: no ear pain, no sore throat, no congestion, no hoarseness Respiratory: no shortness of breath, no cough, no orthopnea, no wheezing Cardiovascular: no chest pain, no palpitations, no edema Gastrointestinal: no nausea, no vomiting, no diarrhea, no constipation, no GI bleeding, no abdominal pain, no dysphagia, no heartburn Genitourinary: No dysuria, no hematuria, no discharge, no pain Musculoskeletal: no back pain, no trauma Neurologic: no numbness, no sleeping problems Additional ROS info: Except as noted in the above Review of Systems and in the History of Present Illness all other systems have been reviewed and are negative or noncontributory. Physical Exam Vitals & Measurements HR: 88(Peripheral) RR: 16 BP: 150/87 HT: 68 in HT: 173 cm WT: 143.4 kg WT: 315.48 lb BMI: 47.91 Constitutional: Appearance: well developed Skin: Inspection: no rashes, ulcers, icterus, or telangiectasias. Eyes: Conjunctivae/lids: normal conjunctivae and lids. ENMT: Hearing: within normal limits. Lips/Teeth/Gums: normal oral mucosa Neck: Neck: normal motion, central trachea Respiratory: Percussion: thorax normoresonant. Auscultation: normal breath sounds; no rubs, wheezes, rale or rhonchi. Cardiovascular: Auscultation: normal rhythm, S1 and S2; no rubs, murmurs or gallop. Peripheral: no edema Gastrointestinal/Abdo men: Abdomen: normal consistency and bowel sounds; no tenderness or masses. Liver/Spleen: normal size and consistency, not palpable. Rectal: deferred Musculoskeletal: Gait/station: normal gait Assessment/Plan 1. HCV (hepatitis C virus) (B19.20: Unspecified viral hepatitis C without hepatic coma) The patient has a history of hepatitis C. She acquired hepatitis C likely through IV drugs. She used IV drugs 3 to 5 years ago and she has been clean for at least 1 year. Her hepatitis C viral load is 547,000. I will proceed with hepatitis C genotype. We will rule out hepatitis B and HIV. We will proceed with a FibroScan to assess fibrosis score and we will check urine toxicology to rule out active drug use. We will plan on starting treatment once the above testing are back. 2. 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 She has been on Suboxone for over the last 3 years. She reused again 1 year ago, but she has been cleaned since then. ATTESTATION: Documentation services were performed after patient or guardian consented to allow Rosie Sweet Peter to record this visit. ANDREY internet network specialist and provider reviewed before signing. ANDREY: Isra Patel Follow-up No qualifying data available Problem List/Past Medical History Ongoing BMI 45.0-49.9, adult HCV (hepatitis C virus) Hepatitis C antibody test positive History of drug abuse HTN (hypertension) Nicotine addiction PTSD (post-traumatic stress disorder) Historical No qualifying data Procedure/Surgical History Tonsillectomy (1996). Medications cyclobenzaprine 10 mg Tab, 10 mg= 1 tab(s), Oral, qPM, PRN, 2 refills lisinopril 40 mg Tab, 40 mg= 1 tab(s), Oral, Daily, 1 refills Suboxone 8 mg-2 mg sublingual film, 1 film, SubLingual, Daily Allergies No Known Medication Allergies Social History Alcohol - Denies Alcohol Use, 04/18/2022 Substance Abuse - Denies Substance Abuse, 04/18/2022 Tobacco - Denies Tobacco Use, 04/18/2022 Former smoker, quit more than 30 days ago Tobacco Use:. Current vaping or e-cigarette use Smokeless Tobacco Use:. Vaping, Ready to change: No. Household tobacco concerns: No. Yes, 07/30/2022 Immunizations Vaccine Date Status measles/mumps/rubella virus vaccine 05/18/2000 Recorded measles/mumps/rubella virus vaccine 10/28/1992 Recorded Hib, unspecified formulation 10/28/1992 Recorded DTaP, unspecified formulation 10/28/1992 Recorded measles/mumps/rubella virus vaccine 08/17/1989 Recorded Normal [facility] Comment on above: Result Comment: Elec tronically Signed By: Isra Patel\.br\Date and Time Signed: 07/30/22 17:49 EDT\.br\Electronically Co-Signed By: Padmini MAXWELL MD\.br\Date and Time Co-Signed: 08/04/22 21:07 EDT Ambulatory Visit Summaryon 0 07-30-2022 Ambulatory Visit Summary PERLA SPANN :1990 Visit Date:07/30/2022 Ambulatory Visit Instructions Your Diagnosis HCV (hepatitis C virus) History of drug abuse Your Care Team Attending Physician - Padmini MAXWELL MD Primary Care Physician - Elise GODINEZ CNP Referring Physician - Elise GODINEZ CNP This Is Your Medications List Contact prescribing physician if questions or concerns buprenorphine-naloxon e (Suboxone 8 mg-2 mg sublingual film) cyclobenzaprine (cyclobenzaprine 10 mg Tab) lisinopril (lisinopril 40 mg Tab) Procedures Performed Tonsillectomy (1996). Discharge Vitals Heart Rate (Peripheral) 88 Respiratory Rate 16 Blood Pressure 150/87 Height 68 in Height 173 cm Weight 315.48 lb Weight 143.4 kg BMI 47.91 What to do next Scheduled Follow-Up Appointments 2022 2:40 PM EDT With: Elise GODINZE CNP Where: [facility] Normal [facility] CHEMISTRYOrdered By: SYSTEM SYSTEM on 05-30-2022 Anion gap [Moles/Vol] 12 mmol/L Normal 6 - 16 mEq/L [facility] Calcium [Mass/Vol] 9.8 mg/dL Normal 8.9 - 11. 1 mg/dL [facility] Chloride [Moles/Vol] 100 mmol/L Low 101 - 1 11 mmol/L [facility] Cholesterol [Mass/Vol] 167 mg/dL Normal 120 - 200 mg/dL [facility] Cholesterol in HDL [Mass/Vol] 37 mg/dL Invalid Interpretation Code [facility] Cholesterol in LDL [Mass/Vol] 122 mg/dL Normal <=129mg/dL [facility] Cholesterol in VLDL [Mass/Vol] 16 mg/dL Normal 7 - 40 mg/dL [facility] CO2 [Moles/Vol] 26 mmol/L Normal 21 - 31 mmol/L [facility] Creatinine [Mass/Vol] 0.8 mg/dL Normal 0.5 - 1.3 mg/dL [facility] GFR/1.73 sq M.predicted among blacks MDRD (S/P/Bld) [Vol rate/Area] mL/min/1.73 m2 Normal >=59mL/min/1. 73 m2 [facility] Chem S GFR/1.73 sq M.predicted among non-blacks MDRD (S/P/Bld) [Vol rate/Area] mL/min/1.73 m2 Normal >=59mL/min/1. 73 m2 FT Chem S Glucose [Mass/Vol] 115 mg/dL Normal 55 - 199 mg/dL [facility] Potassium [Moles/Vol] 4.1 mmol/L Normal 3.5 - 5.3 mmol/L [facility] Sodium [Moles/Vol] 134 mmol/L Low 135 - 145 mmol/L [facility] Triglyceride [Mass/Vol] 79 mg/dL Normal <=149mg/dL F C Remisol Urea nitrogen [Mass/Vol] 15 mg/dL Normal 5 - 21 mg/dL [facility] Urea nitrogen/Creatinine [Mass ratio] 19 mg/mg Normal 10 - 20 [facility] Reference Laboratory Testing Ordered By: [facility] DomainUser on 03-07-2021 SARS-CoV-2 (COVID-19) RNA LALITA+probe Ql (Resp) Detected Invalid Interpretation Code Not Detected [facility] Comment on above: Result Comment: Molly ents who have a positive COVID-19 test result may now have treatment options. Treatment options are available for patients with mild to moderate symptoms and for hospitalized patients. Visit our website at [email or web address] for resources and information. This nucleic acid amplification test was developed and its performance characteristics determined by [employer]. Nucleic acid amplification tests include RT-PCR and TMA. This test has not been FDA cleared or approved. This test has been authorized by FDA under an Emergency Use Authorization (EUA). This test is only authorized for the duration of time the declaration that circumstances exist justifying the authorization of the emergency use of in vitro diagnostic tests for detection of SARS-CoV-2 virus and/or diagnosis of COVID-19 infection under section 564(b)(1) of the Act, 21 U.S.C. 360bbb-3(b) (1), unless the authorization is terminated or revoked sooner. When diagnostic testing is negative, the possibility of a false negative result should be considered in the context of a patient's recent exposures and the presence of clinical signs and symptoms consistent with COVID-19. An individual without symptoms of COVID-19 and who is not shedding SARS-CoV-2 virus would expect to have a negative (not detected) result in this assay. Performed at: [address] [id number] PhD Stephanie Moreau XR FOOT RIGHT (MIN 3 VIEWS)batsheva núñez 11-08-2019 XR FOOT RIGHT (MIN 3 VIEWS) EXAM: XR FOOT RIGHT (MIN 3 VIEWS) HISTORY: Reason for exam:->pain . Patient fell 3 days ago with continued lateral right foot pain. COMPARISON: None. TECHNIQUE: 3 views. FINDINGS: No evidence of fracture, dislocation or radiopaque foreign body. IMPRESSION: Unremarkable right foot. Interpreted by: Faisal Calvin MD Signed by: Faisal Calvin MD 11/08/19 Final result Normal [facility] foot[facility]: XR FOOT RIGHT (MIN 3 VIEWS) HISTORY: Reason for exam:->pain . Patient fell 3 days ago with continued lateral right foot pain. COMPARISON: None. TECHNIQUE: 3 views. FINDINGS: No evidence of fracture, dislocation or radiopaque foreign body. [facility] Thony, [facility] Incoming Radiant Results From [facility] [employer] - 11/08/2019 7:55 PM EDT EXAM: XR FOOT RIGHT (MIN 3 VIEWS) HISTORY: Reason for exam:->pain . Patient fell 3 days ago with continued lateral right foot pain. COMPARISON: None. TECHNIQUE: 3 views. FINDINGS: No evidence of fracture, dislocation or radiopaque foreign body. IMPRESSION: Unremarkable right foot. [facility] [place] Vital Signs Date Time Vital Sign Value Performing Clinician Facility 07-30-2023 12:57-0400 Body height 172.7 cm Ciarra Roddenberry DIRECTOR PARK.GEOLOGICAL ENGINEER Work Phone: [facility] 07-30-2023 12:57-0400 Body mass index (BMI) [Ratio] 36.81 kg/m2 Ciarra Roddenberry DIRECTOR PARK.GEOLOGICAL ENGINEER Work Phone: [facility] 07-30-2023 12:57-0400 Body temperature 98.49 [degF] Ciarra Roddenberry DIRECTOR PARK.GEOLOGICAL ENGINEER Work Phone: [facility] 07-30-2023 12:57-0400 Body weight 109.8 kg Ciarra Roddenberry DIRECTOR PARK.GEOLOGICAL ENGINEER Work Phone: [facility] 07-30-2023 12:57-0400 Diastolic blood pressure 60 mm[Hg] Ciarra Roddenberry DIRECTOR PARK.GEOLOGICAL ENGINEER Work Phone: [facility] 07-30-2023 12:57-0400 Heart rate 96 /min Ciarra Roddenberry DIRECTOR PARK.GEOLOGICAL ENGINEER Work Phone: [facility] 07-30-2023 12:57-0400 SaO2% (BldA) [Mass fraction] 99 % Ciarra Roddenberry DIRECTOR PARK.GEOLOGICAL ENGINEER Work Phone: [facility] 07-30-2023 12:57-0400 Systolic blood pressure 122 mm[Hg] Ciarra Roddenberry DIRECTOR PARK.GEOLOGICAL ENGINEER Work Phone: [facility] 07-02-2023 15:30-0400 Body height 170.2 cm Ciarra Roddenberry DIRECTOR PARK.GEOLOGICAL ENGINEER Work Phone: [facility] 07-02-2023 15:30-0400 Body temperature 97.59 [degF] Ciarra Roddenberry DIRECTOR PARK.GEOLOGICAL ENGINEER Work Phone: [facility] 07-02-2023 15:30-0400 Diastolic blood pressure 88 mm[Hg] Ciarra Roddenberry DIRECTOR PARK.GEOLOGICAL ENGINEER Work Phone: [facility] Comment on above: Patient states no bP meds today 07-02-2023 15:30-0400 Heart rate 100 /min Ciarra Cotton DIRECTOR PARK.GEOLOGICAL ENGINEER Work Phone: [facility] 07-02-2023 15:30-0400 SaO2% (BldA) [Mass fraction] 100 % Ciarra Cotton DIRECTOR PARK.GEOLOGICAL ENGINEER Work Phone: [facility] 07-02-2023 15:30-0400 Systolic blood pressure 150 mm[Hg] Ciarra Cotton DIRECTOR PARK.GEOLOGICAL ENGINEER Work Phone: [facility] Comment on above: Patient states no bP meds today 10-22-2022 16:26-0400 Diastolic blood pressure 80 mm[Hg] Elise ROBUCK [facility] 10-22-2022 16:26-0400 SaO2% (BldA) [Mass fraction] 99 % Elise ROBUCK [facility] 10-22-2022 16:26-0400 Systolic blood pressure 127 mm[Hg] Elise ROBUCK [facility] 08-27-2022 14:55-0400 Diastolic blood pressure 86 mm[Hg] Elise ROBUCK [facility] 08-27-2022 14:55-0400 Mean blood pressure 106 mm[Hg] Elise ROBUCK [facility] 08-27-2022 14:55-0400 Systolic blood pressure 146 mm[Hg] Elise ROBUCK [facility] 08-27-2022 14:46-0400 Blood Pressure Location Elise ROBUCK [facility] 08-27-2022 14:46-0400 Diastolic blood pressure 90 mm[Hg] Elise ROBUCK [facility] 08-27-2022 14:46-0400 Heart rate 91 /min Elise ROBUCK [facility] 08-27-2022 14:46-0400 SaO2% (BldA) [Mass fraction] 98 % Elise ROBUCK [facility] 08-27-2022 14:46-0400 Systolic blood pressure 146 mm[Hg] Elise ROBUCK [facility] 07-30-2022 15:07-0400 Diastolic blood pressure 87 mm[Hg] [facility] 07-30-2022 15:07-0400 Mean blood pressure 108 mm[Hg] [facility] 07-30-2022 15:07-0400 Systolic blood pressure 150 mm[Hg] [facility] 07-30-2022 15:04-0400 Blood Pressure Location [facility] 07-30-2022 15:04-0400 Diastolic blood pressure 94 mm[Hg] [facility] 07-30-2022 15:04-0400 Heart rate 88 /min [facility] 07-30-2022 15:04-0400 Respiratory rate 16 /min [facility] 07-30-2022 15:04-0400 Systolic blood pressure 155 mm[Hg] [place] SAL[facility] 06-15-2022 14:48-0400 Blood Pressure Location Elise ROBUCK [facility] 06-15-2022 14:48-0400 Diastolic blood pressure 81 mm[Hg] Elise ROBUCK [facility] 06-15-2022 14:48-0400 Heart rate 89 /min Elise ROBUCK [facility] 06-15-2022 14:48-0400 SaO2% (BldA) [Mass fraction] 100 % Elise ROBUCK [facility] 06-15-2022 14:48-0400 Systolic blood pressure 138 mm[Hg] Elise ROBUCK [facility] 05-13-2022 14:49-0400 Blood Pressure Location Elise ROBUCK [facility] 05-13-2022 14:49-0400 Diastolic blood pressure 86 mm[Hg] Elise ROBUCK [facility] 05-13-2022 14:49-0400 Heart rate 101 /min Elise ROBUCK [facility] 05-13-2022 14:49-0400 Systolic blood pressure 137 mm[Hg] Elise ROBUCK [facility] 04-30-2022 15:28-0500 Blood Pressure Location Elise ROBUCK [facility] 04-30-2022 15:28-0500 Diastolic blood pressure 90 mm[Hg] Elise ROBUCK [facility] 04-30-2022 15:28-0500 Heart rate 105 /min Elise GODINEZ [facility] 04-30-2022 15:28-0500 SaO2% (BldA) [Mass fraction] 99 % Elise GODINEZ [facility] 04-30-2022 15:28-0500 Systolic blood pressure 161 mm[Hg] Elise GODINEZ [facility] 11-08-2019 18:46-0400 BMI (Body Mass Index) 41.05 kg/m2 [facility] [place] 11-08-2019 18:46-0400 Body Temperature 97.9 [degF] Erika Rodriguez [employer], [place] 11-08-2019 18:46-0400 Body weight 122.47 kg [facility] [place] 11-08-2019 18:46-0400 BP Diastolic 77 mm[Hg] [facility] [place] 11-08-2019 18:46-0400 BP Systolic 145 mm[Hg] [facility] [place] 11-08-2019 18:46-0400 Height 172.7 cm [facility] [place] 11-08-2019 18:46-0400 Pulse (Heart Rate) 76 /min [facility] [place] 11-08-2019 18:46-0400 Pulse Oximetry 93 % [facility] [place] 11-08-2019 18:46-0400 Respiratory Rate 18 /min rEika [facility] [place] 10-26-2018 19:03-0400 BMI (Body Mass Index) 46.22 kg/m2 Stephan Glam [facility] [place] 10-26-2018 19:03-0400 Body Temperature 98.1 [degF] [facility] 10-26-2018 19:03-0400 Body weight 133.86 kg [facility] [place] [place] 10-26-2018 19:03-0400 Height 170.2 cm [facility] [place] 10-26-2018 19:03-0400 Pulse (Heart Rate) 98 /min Stephan Rangel [facility], [place]AN 10-26-2018 19:03-0400 Pulse Oximetry 97 % Stephan Terrazas [facility], [place] 10-26-2018 19:03-0400 Respiratory Rate 20 /min Stephan Terrazas [facility], [place] Encounters Encounter Date Encounter Type Care Provider Facility Start: 11-04-2023 End: 11-04-2023 Telemedicine consultation with patient Tammy Barrett HEATHER Work Phone: Gastroenterology Start: 11-04-2023 End: 11-04-2023 ambulatory Tammy Barrett HEATHER Work Phone: Gastroenterology Comment on above: Chronic hepatitis C without hepatic coma (HCC) (Primary Dx) Start: 08-30-2023 Specialty Pharmacy Maulik Cruz RP [facility] Comment on above: [facility] Hepatology - Med ication Refill (Mavyret ) Start: 08-24-2023 End: 08-24-2023 ambulatory LEORA HERMILA Not Available Start: 08-09-2023 End: 08-09-2023 ambulatory LEROA HERMILA Not Available Start: 07-30-2023 End: 07-30-2023 Patient encounter procedure Hepatology Procedures A5 Work Phone: Gastroenterology Comment on above: 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, 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) (Primary Dx) Start: 07-30-2023 End: 07-30-2023 ambulatory CIARRA COTTON Gastroenterology Comment on above: Arrived Start: 07-29-2023 ambulatory Maulik Cruz RP [facility] Start: 07-29-2023 Patient encounter procedure Maulik Cruz RP [facility] Comment on above: [facility] Hepatology - Pavan atment Referral (Mavyret); Insurance Authorization ([place] Submission pending) Start: 07-29-2023 Telephone encounter Ciarra madera APRN.CNP Work Phone: Gastroenterology Start: 07-23-2023 End: 07-23-2023 ambulatory Umu Cotton RT(R) Radiology Comment on above: Radiology US Start: 07-23-2023 Patient encounter procedure Umu Cotton RT(R) Radiology Start: 07-23-2023 End: 07-23-2023 [facility] Comment on above: Chronic hepatitis C without hepatic coma (HCC) [B18.2] Start: 07-09-2023 End: 07-10-2023 ambulatory Kojo NELLISTON Facility[facility] Start: 07-02-2023 End: 07-02-2023 Patient encounter procedure Ciarrarobert Cotton DIRECTOR PARK.GEOLOGICAL ENGINEER Work Phone: Gastroenterology Comment on above: Chronic hepatitis C without hepatic coma (HCC) (Primary Dx) Start: 07-02-2023 End: 07-02-2023 ambulatory CIARRA Veronica YURY Facility:[facility] Start: 05-26-2023 End: 05-27-2023 ambulatory GEOLOGICAL ENGINEER Elise GODINEZ [facility] Start: 05-26-2023 End: 05-26-2023 Patient encounter procedure Elise GODINEZ [facility] Start: 04-20-2023 End: 04-21-2023 ambulatory GEOLOGICAL ENGINEER Elise GODINEZ [facility] Start: 04-20-2023 End: 04-20-2023 Patient encounter procedure Elise GODINEZ [facility] Start: 01-18-2023 ambulatory Son Lind Oksanamichael Facility:[facility] Start: 10-22-2022 End: 10-23-2022 ambulatory GEOLOGICAL ENGINEER Elise Veronica GODINEZ Facility[place] Start: 10-22-2022 End: 10-22-2022 Lab Drop off Elise Veronica GODINEZ [facility] Start: 10-22-2022 End: 10-22-2022 Patient encounter procedure Elise Veronica GODINEZ [facility] Start: 08-27-2022 End: 08-28-2022 ambulatory GEOLOGICAL ENGINEER Elise E ROBUCK Facility:[facility] Start: 08-27-2022 End: 08-27-2022 Patient encounter procedure Elise E ROBUCK [facility] Start: 08-12-2022 End: 08-13-2022 ambulatory XXXX NONE Facility[facility] Start: 08-12-2022 End: 08-12-2022 Patient encounter procedure Washington KERRYAM [facility] Start: 07-30-2022 End: 07-31-2022 ambulatory GEOLOGICAL ENGINEER Elise GODINEZ Facility:[facility] Start: 07-30-2022 End: 07-30-2022 Patient encounter procedure [place] [facility] Start: 06-15-2022 End: 06-15-2022 Patient encounter procedure Elise E ROBUCK [facility] Start: 05-30-2022 End: 05-30-2022 Patient encounter procedure Elise E ROBUCK [facility] Start: 05-18-2022 End: 05-18-2022 Patient encounter procedure Elise E ROBUCK [facility] Start: 05-13-2022 End: 05-13-2022 Patient encounter procedure Elise E ROBUCK [facility] Start: 05-05-2022 End: 05-09-2022 Pre-admission assessment Elise E ROBUCK [facility] Start: 04-30-2022 End: 04-30-2022 Patient encounter procedure Elise GODINEZ [facility] Start: 04-30-2022 End: 04-30-2022 Patient encounter procedure Elise GODINEZ [facility] Start: 03-05-2021 End: 06-05-2021 Patient encounter procedure Geovanni Laboy [facility] Start: 11-08-2019 End: 11-08-2019 Emergency department patient visit ERIKA RODRIGUEZ [facility] Start: 11-08-2019 End: 11-08-2019 Emergency department patient visit Erika Rodriguez Work Phone: [facility] ED Comment on above: Sprain of right foot , initial encounter (Primary Dx); Essential hypertension Start: 10-26-2018 End: 10-26-2018 Emergency department patient visit Reedashok Cooper Mk Work Phone: [facility] ED Comment on above: Abscess (Primary Dx) Procedures Date Procedure Procedure Detail Performing Clinician Start: 07-30-2023 Liver elastography w /o imag w/i&r Ciarra Cotton APRN.GEOLOGICAL ENGINEER Work Phone: Start: 07-23-2023 Us abdominal real ti me w/image limited Ciarra Cotton APRN.GEOLOGICAL ENGINEER Work Phone: Start: 11-08-2019 Radex foot complete minimum 3 views ERIKA RODRIGUEZ Start: 11-08-2019 Radex foot complete minimum 3 views Erika Rodriguez Work Phone: Start: 03-01-1996 Tonsillectomy Elise CHEATHAM Plan of Treatment Date Care Activity Detail Author Start: 01-05-2024 End: 01-05-2024 ambulatory 01/05/2024 3:00 PM EST Specialty Pharmacy [facility] [address] [id number] [place] [address] Pharmacist, Specialty[facility] [address] [place] [id number] SVR 12 - Mavyret [facility] Comment on above: SVR 12 - Mavyret Start: 10-31-2023 Covid-19 Vaccine ( season) Covid-19 Vaccine () [facility] Start: 10-31-2023 Influenza vaccination [facility] Start: 10-29-2023 End: 10-29-2023 ambulatory 10/29/2023 1:30 PM EDT [facility] Gastroenterology [address] [address] Ciarra Cotton APRN.GEOLOGICAL ENGINEER [address] [place], [place] [id number] hep c Gastroenterology Comment on above: hep c Start: 08-29-2023 End: 11-28-2023 [id number] [Mass/volume] in Serum or Plasma ALPHA FETOPROTEIN Lab Routine 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, chronic (HCC) Expected: 08/29/2023 (Approximate), Expires: 11/28/2023 [facility] Work Phone: Comment on above: Expected: 08/29/2023 (Approximate), Expi res: 11/28/2023 Start: 07-30-2023 End: 07-30-2023 ambulatory 07/30/2023 2:00 PM EDT Procedure Gastroenterology [address] [address] [facility] Comment on above: Fibroscan Start: 07-30-2023 End: 07-30-2023 Patient encounter procedure 07/30/2023 1:30 PM EDT Office Visit Gastroenterology [address] [address] Ciarra Cotton, FRENCH.GEOLOGICAL ENGINEER [address] [place] [address] hep c Gastroenterology Comment on above: hep c Start: 03-01-2023 Behavioral Health Screening Behavioral Health Screening [facility] Start: 10-30-2022 Covid-19 Vaccine ( season) Covid-19 Vaccine ( season) [facility] Start: 10-31-2019 Influenza vaccination Flu vaccine (#1) [place], [place] Start: 10-30-2018 Influenza vaccination Flu vaccine (#1) [place] Start: 2018 Screening for malignant neoplasm of cervix HPV Testing [facility] Start: 2009 Screening for malignant neoplasm of cervix [facility] Start: 2007 DTaP/Tdap/Td vaccine (1 - Tdap) DTaP/Tdap/Td vaccine (1 - Tdap) [place] Start: 2007 Hepatitis A Vaccine (1 of 2 - Risk 2-dose series) Hepatitis A Vaccine (1 of 2 - Risk 2-dose series) [facility] Start: 2007 Hepatitis B Vaccine (1 of 3 - 19+ 3-dose series) Hepatitis B Vaccine (1 of 3 - 19+ 3-dose series) [facility] Start: 2007 Urine microalbumin profile DTaP,Tdap,Td Vaccine (1 - Tdap) [facility] Start: 2006 Anxiety Screening Anxiety Screening [facility] Start: 2006 Depression Screening Depression Screening [facility] Start: 2006 HIV screening HIV Screening [facility] Start: 2003 HIV screening HIV screen [place], [place] Start: 1994 Pneumococcal vaccination Pneumococcal Vaccine (1 of 2 - PCV) [facility] Start: 1989 Varicella vaccine (1 of 2 - 2-dose childhood series) Varicella vaccine (1 of 2 - 2-dose childhood series) [place] End: 07-28-2024 Hepatic function 2000 panel - Serum or Plasma HEPATIC FUNCTION PNL Lab Routine Chronic hepatitis C without hepatic coma (HCC) Once per month for 4 Occurrences starting 07/29/2023 until 07/28/2024 [facility] Comment on above: Once per month for 4 Occurrences startin g 07/29/2023 until 07/28/2024 End: 07-28-2024 Hepatitis C virus RNA [Units/volume] (viral load) in Serum or Plasma by LALITA with probe detection HEPATITIS C RNA QUANTIFICATION BY PCR, PLASMA/SERUM Lab Routine Chronic hepatitis C without hepatic coma (HCC) Once per month for 4 Occurrences starting 07/29/2023 until 07/28/2024 [facility] Comment on above: Once per month for 4 Occurrences startin g 07/29/2023 until 07/28/2024 Liver ultrasound attenuation by transient elastography [facility] Work Phone: Comment on above: Ordered: 07/02/2023 End: 10-26-2018 Wound culture Wound culture Microbiology STAT One Time for 1 Occurrences starting 10/26/2018 until 10/26/2018 [place] Comment on above: One Time for 1 Occurrences starting 09/30 until 10/26/2018 Immunizations Immunization Date Immunization Notes Care Provider Ada veronica 05-18-2000 measles, mumps and rubella virus vaccine Elise ROBUCK [facility] 10-28-1992 DTaP, unspecified formulation Elise ROBUCK [facility] 10-28-1992 Hib, unspecified formulation Elise ROBUCK [facility] 10-28-1992 measles, mumps and rubella virus vaccine Elise ROBUCK [facility] 08-17-1989 measles, mumps and rubella virus vaccine [place] [facility] Payers Date Payer Category Payer Medicaid [employer] [facility] MEDICAID [facility] [id number] 2022-Present [phone] [address] [place] [address] Medicaid [id number] 2022 Medicaid [id number] 2014 Unknown [id number] 2014 Unknown [employer] xxxxxxxxxxx 2014-Present [phone] [address] [place] [address] xxxxxxxxxxx [id number] 1988 Unknown [id number] 1988 Unknown [id number] [id number] 1988 Unknown [id number] [id number] 1988 Unknown [id number] [id number] 1988 Unknown [id number] [id number] 1988 Unknown [id number] [id number] 1988 Unknown [id number] [id number] 1988 Unknown [id number] [id number] 1988 Unknown [id number] [id number] 1988 Unknown [id number] [id number] 1988 Unknown [id number] 1988 Unknown [id number] Social History Date Type Detail Facility Start: 11-08-2019 End: 05-26-2023 Tobacco smoking status NHIS Former smoker [facility] Start: 11-08-2019 Tobacco use and exposure Never used [facility] Start: 11-08-2019 Alcohol intake Ex-drinker (finding) [facility] Start: 1988 Sex Assigned At Not on file [facility] BRIAN Exposure to SARS-CoV-2 (event) Not sure [facility] Start: 10-26-2018 End: 07-02-2023 Alcohol intake Not Currently [facility] Start: 07-02-2023 Tobacco smoking status NHIS Never smoked tobacco [facility] Start: 07-02-2023 Tobacco use and exposure User of smokeless tobacco [facility] Start: 07-02-2023 Alcohol intake Lifetime non-d camelia (finding) [facility] Start: 07-02-2023 History of Social function [facility] Start: 07-02-2023 Tobacco [facility] NEGATED: Highlighted rowStart: NINF History of tobacco use Passive smoker [facility] Functional Status Date Assessment Result Facility 07-27-2023 Fibrosis Score Fibrosis Score 0 .37 07/27/2023 7:31 AM EDT [facility] 0.37 [facility] 07-27-2023 Necroinflam Activity Score Necro inflam Activity Score 0.50 07/27/2023 7:31 AM EDT [facility] 0.50 [facility] 07-23-2023 Liver fibr score Ser Pl Calc.FibroSure 0.37 [facility] Comment on above: Order Comment: Speci men Type: BLOOD SPECIMENOrdering Facility: [facility] Address: [address] [place] [address] Performed By: #### L IVFIB ####[facility] [id number] [place] [address] [place] 07-23-2023 Necroinflammatory ac t score SerPl 0.50 [facility] Comment on above: Order Comment: Speci men Type: BLOOD SPECIMENOrdering Facility: [facility] Address: [address] [place] [address] Performed By: #### L IVFIB ####[facility] [id number] [id number] [id number] [place] 07-30-2022 Functional Status N/A [facility] 06-15-2022 Functional Status No [facility] 05-13-2022 Functional Status Symptomatic Af ter Exposure to Contagion No [facility] Clinical Notes 04-13-2022 to 11-04-2023 Tammy Barrett APRN.GEOLOGICAL ENGINEER - 11/04/2023 5:00 PM EDTimothy White - 08/30/2023 10:40 AM EDTBTimothy kaba - 08/30/2023 10:40 AM EDTPatient Ciarra Hollis APRN.GEOLOGICAL ENGINEER - 07/30/2023 1:30 PM EDT Note Date & Type Note Facility 11-04-2023 History of Presen t illness Narrative VIRTUAL VISIT PROGRESS NOTE This is a virtual visit using Zaya Zoom Video Visit. It required patient-provider interaction for the medical decision making as documented below. I have communicated my name and active licensure. The patient's identity and physical location were verified at the time of this visit. 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 Perla Spann is a pleasant 33 year old female seen for chronic hepatitis C (GT 3). She underwent workup for prior authorization for treatment, completed 8 weeks of Mavyret treatment in the beginning of September 2023, end of treatment labs have not been done yet to check for a viral load. Patient reports no missed doses, some emesis no other side effects. Patient denies RUQ pain, shortness of breath, signs of fluid retention, fever, chills, nausea, jaundice, dark colored urine, pale colored stools, constipation, diarrhea, hematemesis, melena, decreased appetite, muscle wasting, confusion, weight loss and fatigue . Fibroscan prior to treatment: kPa 10.0, CAP 227 HISTORY REVIEWED (electronic chart updated): No past medical history on file. No past surgical history on file. No family history on file. Social History Tobacco Use Smoking status: Never Passive exposure: Never Smokeless tobacco: Current Tobacco comments: Vape Substance Use Topics Alcohol use: Never Drug use: Never Current Outpatient Medications Medication Sig hydroCHLOROthiazide 25 mg tablet Take 25 mg by mouth once daily. buprenorphine-naloxone (SUBOXONE) 2-0.5 mg film Dissolve 2 Film under the tongue once daily. TRULICITY 0.75 mg/0.5 mL pen injector Inject 0.75 mg subcutaneously one time a week. lisinopril (ZESTRIL) 40 mg tablet Take 40 mg by mouth once daily. levonorgestrel (PLAN B ONE-STEP) 1.5 mg tab Take 1.5 mg by mouth once daily. (Patient not taking: Reported on 07/30/2023) No current facility-administered medications for this visit. ALLERGIES No Known Allergies REVIEW OF SYSTEMS: GENERAL: feeling well without fatigue, no recent change in weight RESPIRATORY: no cough, no wheezing or shortness of breath CARDIOVASCULAR: no chest pain, no palpitations GI: normal appetite, tolerating PO well, BMs normal, and no abdominal pain MUSCULOSKELETAL: denies any painful or swollen joints, no muscle aches NEURO: no numbness or paresthesias and no weakness of the extremities PHYSICAL EXAMINATION: VIDEO EXAM: (if completed, performed via video enabled technology) GENERAL: alert and appropriate, in no distress, well-hydrated, well nourished, and happy, smiling, interactive ASSESSMENT: -Reviewed available labs and imaging with the patient -Discussed the natural history of liver disease, up to and including cirrhosis -Discussed the natural history of hepatitis C and follow up labs to determine SVR PLAN: -Have labs drawn soon to check for negative viral load -Have labs drawn in December to determine SVR (cure) -Repeat Fibroscan 06/2024 for updated hepatic fibrosis/steatosis staging; depending on results consider biopsy -Contact me with any further questions/concerns I spent a total of 45 minutes on the date of the service which included preparing to see the patient, [id number] patient care, completing clinical documentation, counseling and educating the patient/family/caregiver, ordering medications, tests, or procedures, and communicating results to the patient/family/caregiver Tammy Barrett APRN.CNP documented in this encounter [facility] 11-04-2023 Note HNO ID: [id number] Author: TAMMY BARRETT APRN.CNP Service: ? Author Type: Nurse Practitioner Type: Progress Notes Filed: 11/04/2023 18:42 Note Text: VIRTUAL VISIT PROGRESS NOTE This is a virtual visit using Reward[employer] Video Visit. It required patient-provider interaction for the medical decision making as documented below. I have communicated my name and active licensure. The patient's identity and physical location were verified at the time of this visit. 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 Perla Spann is a pleasant 33 year old female seen for chronic hepatitis C (GT 3). She underwent workup for prior authorization for treatment, completed 8 weeks of Mavyret treatment in the beginning of September 2023, end of treatment labs have not been done yet to check for a viral load. Patient reports no missed doses, some emesis no other side effects. Patient denies RUQ pain, shortness of breath, signs of fluid retention, fever, chills, nausea, jaundice, dark colored urine, pale colored stools, constipation, diarrhea, hematemesis, melena, decreased appetite, muscle wasting, confusion, weight loss and fatigue . Fibroscan prior to treatment: kPa 10.0, CAP 227 HISTORY REVIEWED (electronic chart updated): No past medical history on file. No past surgical history on file. No family history on file. Social History Tobacco Use Smoking status: Never Passive exposure: Never Smokeless tobacco: Current Tobacco comments: Vape Substance Use Topics Alcohol use: Never Drug use: Never Current Outpatient Medications Medication Sig hydroCHLOROthiazide 25 mg tablet Take 25 mg by mouth once daily. buprenorphine-naloxone (SUBOXONE) 2-0.5 mg film Dissolve 2 Film under the tongue once daily. TRULICITY 0.75 mg/0.5 mL pen injector Inject 0.75 mg subcutaneously one time a week. lisinopril (ZESTRIL) 40 mg tablet Take 40 mg by mouth once daily. levonorgestrel (PLAN B ONE-STEP) 1.5 mg tab Take 1.5 mg by mouth once daily. (Patient not taking: Reported on 07/30/2023) No current facility-administered medications for this visit. ALLERGIES No Known Allergies REVIEW OF SYSTEMS: GENERAL: feeling well without fatigue, no recent change in weight RESPIRATORY: no cough, no wheezing or shortness of breath CARDIOVASCULAR: no chest pain, no palpitations GI: normal appetite, tolerating PO well, BMs normal, and no abdominal pain MUSCULOSKELETAL: denies any painful or swollen joints, no muscle aches NEURO: no numbness or paresthesias and no weakness of the extremities PHYSICAL EXAMINATION: VIDEO EXAM: (if completed, performed via video enabled technology) GENERAL: alert and appropriate, in no distress, well-hydrated, well nourished, and happy, smiling, interactive ASSESSMENT: -Reviewed available labs and imaging with the patient -Discussed the natural history of liver disease, up to and including cirrhosis -Discussed the natural history of hepatitis C and follow up labs to determine SVR PLAN: -Have labs drawn soon to check for negative viral load -Have labs drawn in December to determine SVR (cure) -Repeat Fibroscan 06/2024 for updated hepatic fibrosis/steatosis staging; depending on results consider biopsy -Contact me with any further questions/concerns I spent a total of 45 minutes on the date of the service which included preparing to see the patient, [id number] patient care, completing clinical documentation, counseling and educating the patient/family/caregiver, ordering medications, tests, or procedures, and communicating results to the patient/family/caregiver Tammy Barrett APRN.[facility] 08-30-2023 History of Presen t illness Narrative [facility] Refill Assessment Medication(s): Mavyret Patient's current medication list and adherence status to current therapy were reviewed by Specialty Pharmacy clinical pharmacist to identify any new drug interactions or non-compliance to therapy. Therapy continues to be appropriate for disease, patient response, and medical condition. Verification of therapeutic benefit and effectiveness with current therapy was completed. Adverse events, barriers in adherence, and side effects were assessed and addressed if applicable. Will proceed with refill with no changes in therapy - patient progressing towards achieving therapeutic goals based on medication-specific laboratory parameters, disease state markers and outcomes. 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 Patient confirmed: Yes Med/dose confirmed: Yes Missed doses: No Estimated days supply on hand: 14 Next cycle/dose due: 08/31/23 Copay amount: 0 Delivery method: FedEx Signature required: Waived on patient request Delivery address: [place] [address] [address] Delivery date: 09/06/23 Questions or concerns for the pharmacist?: No Did you have any side effects believed to be related to this medication, that resulted in hospitalization?: No Current Outpatient Medications on File Prior to Visit Medication Sig glecaprevir-pibrentasvir (MAVYRET) 100-40 mg tablet Take 3 tablets by mouth once daily with food. hydroCHLOROthiazide 25 mg tablet Take 25 mg by mouth once daily. buprenorphine-naloxone (SUBOXONE) 2-0.5 mg film Dissolve 2 Film under the tongue once daily. TRULICITY 0.75 mg/0.5 mL pen injector Inject 0.75 mg subcutaneously one time a week. lisinopril (ZESTRIL) 40 mg tablet Take 40 mg by mouth once daily. levonorgestrel (PLAN B ONE-STEP) 1.5 mg tab Take 1.5 mg by mouth once daily. (Patient not taking: Reported on 07/30/2023) No current facility-administered medications on file prior to visit. [facility] Visit Assessment - Hepatology: Is pre-assessment?: No Is initial or refill assessment?: Yes Assessment to use: Refill Vaccination Assessment: Date of influenza vaccination reminder: 08/09/2023 Date of most recent vaccination assessment: 08/09/2023 Timothy Carrera CPhT Neurology, Cardiology & Infectious Disease [facility] Visit Assessment - Hepatology: Is pre-assessment?: No Is initial or refill assessment?: No Is post-assessment?: Yes Vaccination Assessment: Date of influenza vaccination reminder: 08/09/2023 Date of most recent vaccination assessment: 08/09/2023 End of Treatment Assessment: Treatment end date: 10/06/2023 Estimated date SVR12 should be drawn: 12/29/2023 HCV RNA viral load ordered?: Yes The patient was reminded to follow-up with his/her provider regarding future tests. Timothy Carrera CPhT Neurology, Cardiology & Infectious Disease [facility] documented in this encounter [facility] 08-30-2023 Note HNO ID: [id number] Author: ?, ?, ? Service: ? Author Type: ? Type: Progress Notes Filed: 08/30/2023 10:44 Note Text: [facility] Visit Assessment - Hepatology: Is pre-assessment?: No Is initial or refill assessment?: No Is post-assessment?: Yes Vaccination Assessment: Date of influenza vaccination reminder: 08/09/2023 Date of most recent vaccination assessment: 08/09/2023 End of Treatment Assessment: Treatment end date: 10/06/2023 Estimated date SVR12 should be drawn: 12/29/2023 HCV RNA viral load ordered?: Yes The patient was reminded to follow-up with his/her provider regarding future tests. Timothy Carrera CPhT Neurology, Cardiology AND Infectious Disease [facility] 08-30-2023 Note HNO ID: [id number] Author: MAULIK CRUZ RPh Service: ? Author Type: ? Type: Progress Notes Filed: 09/01/2023 17:08 Note Text: [facility] Refill Assessment Medication(s): Mavyret Patient's current medication list and adherence status to current therapy were reviewed by Specialty Pharmacy clinical pharmacist to identify any new drug interactions or non-compliance to therapy. Therapy continues to be appropriate for disease, patient response, and medical condition. Verification of therapeutic benefit and effectiveness with current therapy was completed. Adverse events, barriers in adherence, and side effects were assessed and addressed if applicable. Will proceed with refill with no changes in therapy - patient progressing towards achieving therapeutic goals based on medication-specific laboratory parameters, disease state markers and outcomes. Maulik Cruz, PharmD Pharmacist, [facility] Specialty Body And Frame Technician Assessment Patient confirmed: Yes Med/dose confirmed: Yes Missed doses: No Estimated days supply on hand: 14 Next cycle/dose due: 08/31/23 Copay amount: 0 Delivery method: FedEx Signature required: Waived on patient request Delivery address: [place] [address] Delivery date: 09/06/23 Questions or concerns for the pharmacist?: No Did you have any side effects believed to be related to this medication, that resulted in hospitalization?: No Current Outpatient Medications on File Prior to Visit Medication Sig glecaprevir-pibrentasvir (MAVYRET) 100-40 mg tablet Take 3 tablets by mouth once daily with food. hydroCHLOROthiazide 25 mg tablet Take 25 mg by mouth once daily. buprenorphine-naloxone (SUBOXONE) 2-0.5 mg film Dissolve 2 Film under the tongue once daily. TRULICITY 0.75 mg/0.5 mL pen injector Inject 0.75 mg subcutaneously one time a week. lisinopril (ZESTRIL) 40 mg tablet Take 40 mg by mouth once daily. levonorgestrel (PLAN B ONE-STEP) 1.5 mg tab Take 1.5 mg by mouth once daily. (Patient not taking: Reported on 07/30/2023) No current facility-administered medications on file prior to visit. [facility] Visit Assessment - Hepatology: Is pre-assessment?: No Is initial or refill assessment?: Yes Assessment to use: Refill Vaccination Assessment: Date of influenza vaccination reminder: 08/09/2023 Date of most recent vaccination assessment: 08/09/2023 Refill Assessment: Concurrent med therapy screening: Yes Adverse reactions and mitigation: Yes Hepatitis C RNA level at 12 weeks after end of therapy with additional testing as clinically indicated: Yes Hepatic function panel, eGFR: Yes CBC after 2 weeks if on ribavirin: N/A Timothy Carrera CPhT Neurology, Cardiology AND Infectious Disease [facility] 08-30-2023 Note HNO ID: [id number] Author: MAULIK CRUZ RPh Service: ? Author Type: Pharmacist Type: Progress Notes Filed: 03/13/2024 09:26 Note Text: [facility] Discontinuation Assessment: Disease group: Hepatology Medication: MAVYRET 100 MG-40 MG TABLET Is this for hepatitis C treatment: Yes Did patient complete SVR-12: Yes SVR-12 result: Undetectable Discontinue reason: Completed full course of therapy Outside lab results received/scanned in Scanned Docs tab 03/08/24 Maulik Cruz [facility] 07-30-2023 Instructions Ciarra Cotton APRN.CNP - 07/30/2023 2:00 PM EDT Please start taking Mavyret once delivered. Please complete full course of treatment. Please complete blood work monthly while on hep c medication. Please adhere to mediterranean diet with weight loss goal of 5-10%; <2,000mg Na diet; ETOH cessation. documented in this encounter [facility] 07-30-2023 History of Presen t illness Narrative NAME: Perla Spann [facility] NO: [id number] REFERRING PHYSICIAN: Ciarra Cotton PRESENTING COMPLAINT: HCV follow up HPI: Perla Spann is a 33 year old female with unknown PMHx is here on follow up for chronic HCV. RED with me: 07/02/23 At RED: IMPRESSION Perla Spann is a 33 year old year old female with unknown PMHx who presents with HCV. Risk factors include IVDU and she is treatment naive. Will obtain updated HCV quant, genotype, and serologic evaluation. Will also obtain updated imaging and Fibroscan for further steatosis/fibrosis staging. PLAN Chronic HCV: - repeat HFP - HCV quant, HCV genotype, HIV 1/2 COMBO - serologic evaluation - RUQ US - Fibroscan Since [facility]: Overall, feeling well States was told locally that given suspicion of cirrhosis from prior workup, should be evaluated for HCV treatment at [facility] LFTs mildly elevated RUQ US with increased echogenicity of liver Mavyret ordered, not yet started ETOH use: Last use 4 yrs ago. Nutrition: does not adhere to specific diet but tries to reduce saturated fat; sodium. With constant right sided abdominal pain 3/10, dull ache Sitting in one position worsens pain With constipation daily Somewhat helps with laxatives Attributes to suboxone use Most recent blood work: 07/23/23 ALP WNL, AST/ALT 53/69 Preserved synthetic liver function Plt WNL Fibroscan today: CAP 227; kpa 10.0, IQR 17% Denies jaundice,nausea, vomiting, diarrhea, hematochezia, hematemesis, ascites, episodes of confusion. IMAGING: RUQ US 07/23/23: IMPRESSION: 1. Increased echogenicity of the liver, compatible with hepatic steatosis. No focal hepatic mass. 2. No sonographic evidence of cholelithiasis or acute cholecystitis. No biliary ductal dilation. 3. Normal sonographic appearance of the spleen. No splenomegaly or focal splenic mass. RESULT: Pancreas: Normal sonographic appearance. Portions obscured: tail Liver: Echotexture: Normal, homogeneous. Echogenicity: Increased Surface contour: Smooth Lesions: None. Biliary: No intrahepatic biliary duct dilation. CBD: 0.4 cm at the hilum. Gallbladder: Normal caliber -Contents: No cholelithiasis -Wall: Normal -Other: No pericholecystic fluid. Right Kidney: The right kidney measures 10.8 cm in craniocaudal dimension. No renal calculus or hydronephrosis is seen. Ascites: None. Spleen: The craniocaudal length of the spleen is 11.5 cm, normal. There are no splenic lesions. The left kidney measures 10.7 cm craniocaudal dimension. No renal calculus or hydronephrosis is seen. REVIEW OF SYSTEMS GENERAL: No unexplained weight changes or fevers. GASTROINTESTINAL: Negative for rectal bleeding or black tarry stools. MUSCULOSKELETAL: Negative for unexplained joint pains, dislocations or fractures. NEUROLOGIC: Negative for unexplained weakness or vertigo. SKIN: Negative for new lesions or rashes. Current Outpatient Medications Medication Sig Dispense Refill glecaprevir-pibrentasvir (MAVYRET) 100-40 mg tablet Take 3 tablets by mouth once daily with food. 168 tablet 0 hydroCHLOROthiazide 25 mg tablet Take 25 mg by mouth once daily. buprenorphine-naloxone (SUBOXONE) 2-0.5 mg film Dissolve 2 Film under the tongue once daily. TRULICITY 0.75 mg/0.5 mL pen injector Inject 0.75 mg subcutaneously one time a week. lisinopril (ZESTRIL) 40 mg tablet Take 40 mg by mouth once daily. levonorgestrel (PLAN B ONE-STEP) 1.5 mg tab Take 1.5 mg by mouth once daily. No current facility-administered medications for this visit. ALLERGIES No Known Allergies Social History Tobacco Use Smoking status: Never Passive exposure: Never Smokeless tobacco: Current Tobacco comments: Vape Substance Use Topics Alcohol use: Never Drug use: Never No past medical history on file. @SHX@ No family history on file. PHYSICAL EXAM There were no vitals taken for this visit. General Appearance: Well appearing, alert, in no acute distress, well-hydrated, well nourished. Eyes: conjunctiva and sclera normal Abdomen: not distended Extremities: no cyanosis or edema Skin: no jaundice, no spider angiomas, no palmar erythema Neuro:alert, oriented x 3, pleasant and in no acute distress Recent Labs: Hemoglobin (g/dL) Date Value 07/23/2023 13.9 Hematocrit (%) Date Value 07/23/2023 42.8 WBC (k/uL) Date Value 07/23/2023 12.94 Glucose (mg/dL) Date Value 07/23/2023 82 Potassium (mmol/L) Date Value 07/23/2023 4.4 Sodium (mmol/L) Date Value 07/23/2023 131 Chloride (mmol/L) Date Value 07/23/2023 93 CO2 (mmol/L) Date Value 07/23/2023 24 Creatinine (mg/dL) Date Value 07/23/2023 1.03 BUN (mg/dL) Date Value 07/23/2023 15 Anion Gap (mmol/L) Date Value 07/23/2023 14 Calcium, Total (mg/dL) Date Value 07/23/2023 10.1 Albumin (g/dL) Date Value 07/23/2023 4.4 Bilirubin, Total (mg/dL) Date Value 07/23/2023 0.6 Bilirubin, Conjugated (mg/dL) Date Value 07/23/2023 <0.2 Alkaline Phosphatase (U/L) Date Value 07/23/2023 74 AST (U/L) Date Value 07/23/2023 53 (H) ALT (U/L) Date Value 07/23/2023 69 (H) Protein, Total (g/dL) Date Value 07/23/2023 7.5 MELD 3.0: 13 at 07/23/2023 1:14 PM MELD-Na: 6 at 07/23/2023 1:14 PM Calculated from: Serum Creatinine: 1.03 mg/dL at 07/23/2023 1:14 PM Serum Sodium: 131 mmol/L at 07/23/2023 1:14 PM Total Bilirubin: 0.6 mg/dL (Using min of 1 mg/dL) at 07/23/2023 1:14 PM Serum Albumin: 4.4 g/dL (Using max of 3.5 g/dL) at 07/23/2023 1:14 PM INR(ratio): 1.0 at 07/23/2023 1:14 PM Age at listing (hypothetical): 33 years Sex: Female at 07/23/2023 1:14 PM Assessment IMPRESSION Perla Spann is a 33 year old female with unknown PMHx is here on follow up for chronic HCV. Risk factors include IVDU and she is treatment naive. RUQ US without hepatic abnormality. Fibroscan with CAP 227; kpa 10.0. Discussed possibility of advanced fibrosis vs cirrhosis. Discussed liver biopsy for further evaluation vs noninvasive surveillance. Patient opts for the latter at this time. If truly cirrhotic, appears well compensated at this time. Mavyret ordered; advised to take as prescribed. PLAN Elevated LFTs: - with kpa of 10 noted on recent Fibroscan - likely r/t HCV - Discussed liver biopsy. Not amenable to liver biopsy at this time. States will discuss with mother regarding possibility of liver biopsy in future - will continue with MELD labs/abdominal imaging Q6 months - Mediterranean diet -increased cardiovascular exercise with goal >45 minutes 5 days weekly -avoid liver detox cleanse/supplements- -not to exceed 2,000 mg tylenol daily -strict alcohol abstinence recommended -PCP to assist with management/screening for any and all components of metabolic syndrome Chronic HCV: - to start Mavyret once delivered - HFP, LFTs WNL monthly and in 3 months for SVR treatment HAV/HBV immunity: not immune to HAV/HBV. Advised Twinrix vaccine series Follow up in 3 months. Please contact sooner if you have questions or problems develop. Ciarra Cotton APRN.GEOLOGICAL ENGINEER July 30, 2023 12:33 PM documented in this encounter [facility] 07-30-2023 Note HNO ID: [id number] Author: CIARRA COTTON APRN.TAMARA Service: ? Author Type: Nurse Practitioner Type: Progress Notes Filed: 08/01/2023 14:23 Note Text: NAME: Perla Spann [facility] NO: [id number] REFERRING PHYSICIAN: Ciarra Cotton PRESENTING COMPLAINT: HCV follow up HPI: Perla Spann is a 33 year old female with unknown PMHx is here on follow up for chronic HCV. RED with me: 07/02/23 At [facility]: IMPRESSION Perla Spann is a 33 year old year old female with unknown PMHx who presents with HCV. Risk factors include IVDU and she is treatment naive. Will obtain updated HCV quant, genotype, and serologic evaluation. Will also obtain updated imaging and Fibroscan for further steatosis/fibrosis staging. PLAN Chronic HCV: - repeat HFP - HCV quant, HCV genotype, HIV 1/2 COMBO - serologic evaluation - RUQ US - Fibroscan Since RED: Overall, feeling well States was told locally that given suspicion of cirrhosis from prior workup, should be evaluated for HCV treatment at [facility] LFTs mildly elevated RUQ US with increased echogenicity of liver Mavyret ordered, not yet started ETOH use: Last use 4 yrs ago. Nutrition: does not adhere to specific diet but tries to reduce saturated fat; sodium. With constant right sided abdominal pain 3/10, dull ache Sitting in one position worsens pain With constipation daily Somewhat helps with laxatives Attributes to suboxone use Most recent blood work: 07/23/23 ALP WNL, AST/ALT 53/69 Preserved synthetic liver function Plt WNL Fibroscan today: CAP 227; kpa 10.0, IQR 17% Denies jaundice,nausea, vomiting, diarrhea, hematochezia, hematemesis, ascites, episodes of confusion. IMAGING: RUQ US 07/23/23: IMPRESSION: 1. Increased echogenicity of the liver, compatible with hepatic steatosis. No focal hepatic mass. 2. No sonographic evidence of cholelithiasis or acute cholecystitis. No biliary ductal dilation. 3. Normal sonographic appearance of the spleen. No splenomegaly or focal splenic mass. RESULT: Pancreas: Normal sonographic appearance. Portions obscured: tail Liver: Echotexture: Normal, homogeneous. Echogenicity: Increased Surface contour: Smooth Lesions: None. Biliary: No intrahepatic biliary duct dilation. CBD: 0.4 cm at the hilum. Gallbladder: Normal caliber -Contents: No cholelithiasis -Wall: Normal -Other: No pericholecystic fluid. Right Kidney: The right kidney measures 10.8 cm in craniocaudal dimension. No renal calculus or hydronephrosis is seen. Ascites: None. Spleen: The craniocaudal length of the spleen is 11.5 cm, normal. There are no splenic lesions. The left kidney measures 10.7 cm craniocaudal dimension. No renal calculus or hydronephrosis is seen. REVIEW OF SYSTEMS GENERAL: No unexplained weight changes or fevers. GASTROINTESTINAL: Negative for rectal bleeding or black tarry stools. MUSCULOSKELETAL: Negative for unexplained joint pains, dislocations or fractures. NEUROLOGIC: Negative for unexplained weakness or vertigo. SKIN: Negative for new lesions or rashes. Current Outpatient Medications Medication Sig Dispense Refill glecaprevir-pibrentasvir (MAVYRET) 100-40 mg tablet Take 3 tablets by mouth once daily with food. 168 tablet 0 hydroCHLOROthiazide 25 mg tablet Take 25 mg by mouth once daily. buprenorphine-naloxone (SUBOXONE) 2-0.5 mg film Dissolve 2 Film under the tongue once daily. TRULICITY 0.75 mg/0.5 mL pen injector Inject 0.75 mg subcutaneously one time a week. lisinopril (ZESTRIL) 40 mg tablet Take 40 mg by mouth once daily. levonorgestrel (PLAN B ONE-STEP) 1.5 mg tab Take 1.5 mg by mouth once daily. No current facility-administered medications for this visit. ALLERGIES No Known Allergies Social History Tobacco Use Smoking status: Never Passive exposure: Never Smokeless tobacco: Current Tobacco comments: Vape Substance Use Topics Alcohol use: Never Drug use: Never No past medical history on file. @SHX@ No family history on file. PHYSICAL EXAM There were no vitals taken for this visit. General Appearance: Well appearing, alert, in no acute distress, well-hydrated, well nourished. Eyes: conjunctiva and sclera normal Abdomen: not distended Extremities: no cyanosis or edema Skin: no jaundice, no spider angiomas, no palmar erythema Neuro:alert, oriented x 3, pleasant and in no acute distress Recent Labs: Hemoglobin (g/dL) Date Value 07/23/2023 13.9 Hematocrit (%) Date Value 07/23/2023 42.8 WBC (k/uL) Date Value 07/23/2023 12.94 Glucose (mg/dL) Date Value 07/23/2023 82 Potassium (mmol/L) Date Value 07/23/2023 4.4 Sodium (mmol/L) Date Value 07/23/2023 131 Chloride (mmol/L) Date Value 07/23/2023 93 CO2 (mmol/L) Date Value 07/23/2023 24 Creatinine (mg/dL) Date Value 07/23/2023 1.03 BUN (mg/dL) Date Value 07/23/2023 15 Anion Gap (mmol/L) Date Value 07/23/2023 14 Calci (more content not included)... [facility] 07-30-2023 Note HNO ID: [id number] Author: REBECCA WATTS APRN.GEOLOGICAL ENGINEER Service: ? Author Type: Nurse Practitioner Type: Progress Notes Filed: 07/30/2023 15:36 Note Text: Patient fasting for 3 hours:Yes Fibroscan was performed on July 30, 2023, by Cristin Buenrostro LPN and results are interpreted by Rebecca Watts APRN.GEOLOGICAL ENGINEER Indication: Hepatitis C Please refer to get images report for individual readings Number of readings: 10 IQR %: 17 E (kpa): 10.0 CAP: 227 Impression The reading was adequate. FS=10.0 kPA. The CAP score is 227 and corresponds to steatosis grade of S0. This reading corresponds: A 43% chance of stage 0-2 fibrosis A 58% chance of stage 3-4 fibrosis (advanced fibrosis) A 20% chance of stage 4 fibrosis (cirrhosis).A kPa >20 indicates a high likelihood of stage 4 fibrosis/cirrhosis, consider further testing to confirm. Rebecca Watts APRN.GEOLOGICAL ENGINEER Hepatitis C Fibroscan Fibrosis Risk <7 kPA = F0-F2 93%, F3+F4 7%, F4 <1% <10 kPA = F0-F2 88%, F3+F4 12%, F4 1.7% 10-15 kPA = F0-F2 43%, F3+F4 58%, F4 20% >15 kPA = F0-F2 16%, F3+F4 84%, F4 63% Grade CAP value up to 237 dB/M corresponds to S0 (< 10 % Fat) CAP value between (238 - 258 dB/M) corresponds to S1 (>/= 11 % Fat) CAP value between (259 - 289 dB/M) corresponds to S2 (>/= 33 % Fat) CAP value > 290dB/M corresponds to S3 (>/= 67 % Fat) stage 0 ( S0:< 10 % steatosis) stage 1 (>/= S1: 11%-33% steatosis) stage 2 (>/= S2: 34%-66% steatosis) stage 3 (>/= S3: > 66% steatosis) Reference Roland Y, Pete Q, Roladn T, Marcy J, Roland H, Henrik T. Controlled attenuation parameter for assessment of hepatic steatosis grades: a diagnostic meta-analysis. Int J Clin Exp Med. 2015 Nov 15;8(10):96549-66. PMID: [id number]; PMCID: [id number]. Stephanie M, Margarita LEXI, Rebeccar-Luis M, Mateo F, Salome J, Magdaleno O, Hector F, Ting M, Aubrey G, Re A, Deepti E, Cyn L, Bridgett G, Wenceslao A, Heather U, Lombardo S, Herlinda P, Rosalindao V, de Coni V, Jarod M, Sergio OCASIO. Refining the Baveno elastography criteria for the definition of compensated advanced chronic liver disease. J Hepatol. 2020;74(5):9078-5494. doi: 10.1016/j.jhep.2020.11.050. Epub 2019Feb 06. PMID: 87007330. [facility] 07-30-2023 History of Presen t illness Narrative Patient fasting for 3 hours:Yes Fibroscan was performed on July 30, 2023, by Cristin Buenrostro LPN and results are interpreted by Rebecca Watts APRN.GEOLOGICAL ENGINEER Indication: Hepatitis C Please refer to get images report for individual readings Number of readings: 10 IQR %: 17 E (kpa): 10.0 CAP: 227 Impression The reading was adequate. FS=10.0 kPA. The CAP score is 227 and corresponds to steatosis grade of S0. This reading corresponds: A 43% chance of stage 0-2 fibrosis A 58% chance of stage 3-4 fibrosis (advanced fibrosis) A 20% chance of stage 4 fibrosis (cirrhosis).A kPa >20 indicates a high likelihood of stage 4 fibrosis/cirrhosis, consider further testing to confirm. Rebecca Watts, FRENCH.GEOLOGICAL ENGINEER Hepatitis C Fibroscan Fibrosis Risk <7 kPA = F0-F2 93%, F3+F4 7%, F4 <1% <10 kPA = F0-F2 88%, F3+F4 12%, F4 1.7% 10-15 kPA = F0-F2 43%, F3+F4 58%, F4 20% >15 kPA = F0-F2 16%, F3+F4 84%, F4 63% Grade CAP value up to 237 dB/M corresponds to S0 (< 10 % Fat) CAP value between (238 - 258 dB/M) corresponds to S1 (>/= 11 % Fat) CAP value between (259 - 289 dB/M) corresponds to S2 (>/= 33 % Fat) CAP value > 290dB/M corresponds to S3 (>/= 67 % Fat) stage 0 ( S0:< 10 % steatosis) stage 1 (>/= S1: 11%-33% steatosis) stage 2 (>/= S2: 34%-66% steatosis) stage 3 (>/= S3: > 66% steatosis) Reference Roland Y, Pete Q, Roland T, Marcy J, Roland H, Henrik T. Controlled attenuation parameter for assessment of hepatic steatosis grades: a diagnostic meta-analysis. Int J Clin Exp Med. 2015 Nov 15;8(10):83887-67. PMID: 88647917; PMCID: [id number]. Stephanie Cooper, Margarita ELLIOTT, Jacob M, Mateo F, Salome J, Magdaleno O, Hector F, Ting M, Aubrey G, Re A, Deepti E, Cyn L, Bridgett Caceres, Wenceslao A, Heather U, Munira S, Herlinda P, Maria C V, Jean V, Jarod M, Sergio OCASIO. Refining the Baveno elastography criteria for the definition of compensated advanced chronic liver disease. J Hepatol. 2020;74(5):1115-3357. doi: 10.1016/j.jhep.2020.11.050. Epub 2019Feb 06. PMID: 15778177. documented in this encounter [facility] 07-29-2023 History of Presen t illness Narrative [facility] received prescription(s) for Mavyret from Dr. Ciarra Cotton's office. Benefits investigation was conducted, indicating that a prior authorization is required by pt's plan with [facility]. Note will be updated once prior authorization has been submitted. Gaurang Yoder CPhT (Dee) [facility] Neurology/Cardiology/Infections Disease [facility] P: F: documented in this encounter [facility] 07-29-2023 Note HNO ID: [id number] Author: ?, ?, ? Service: ? Author Type: ? Type: Progress Notes Filed: 08/04/2023 07:50 Note Text: PA was approved with details listed below. Plan Name: Xiomara Alvarenga Agent/Carty: [id number] Case: [id number] Approval Dates: 08/03/2023 - 09/26/2023 Prescriptions will now be processed through [facility] for determination of next steps. Timothy Carrera CPhT Neurology, Cardiology AND Infectious Disease [facility] 07-29-2023 Note HNO ID: [id number] Author: ?, ?, ? Service: ? Author Type: ? Type: Progress Notes Filed: 08/03/2023 13:35 Note Text: PA was initiated and pending review. Plan Name: [place] Plan Agent/Carty: [id number] Case: [id number] Timeline: Diomedes Carrera CPhT Neurology, Cardiology AND Infectious Disease [facility] 07-29-2023 Note HNO ID: [id number] Author: MAULIK CRUZ RPh Service: ? Author Type: Pharmacist Type: Progress Notes Filed: 08/02/2023 16:47 Note Text: HCV New Start Received referral for Hepatitis C follow up and prior authorization process Provider is Ciarra King [facility] Medication: Mavyret 8 weeks - take THREE tablets daily with food Indication: Chronic Hepatitis C B18.2 Prior Treatment: naive Allergies: No Known Allergies GT 3 FIB-4 Calculation: 0.68 at 07/23/2023 1:14 PM Calculated from: SGOT/AST: 53 U/L at 07/23/2023 1:14 PM SGPT/ALT: 69 U/L at 07/23/2023 1:14 PM Platelets: 330 k/uL at 07/23/2023 1:14 PM Age: 33 years Fibroscan Score: F2 HCV Quant RNA by PCR Date Value Ref Range Status 07/23/2023 HCV RNA detected by PCR. (A) HCV RNA not detected by PCR. Final HCV RNA (IU/mL) Date Value Ref Range Status 07/23/2023 1,670,000 (H) IU/mL Final HBV status has been reviewed - if immunity not acquired through vaccination or exposure, recommend initiating vaccination series Hepatitis B Core Ab, Total (no units) Date Value 07/23/2023 Negative No results found for: HBSAGR Hep B Surface Ab, Qual (no units) Date Value 07/23/2023 Negative Hemoglobin (g/dL) Date Value 07/23/2023 13.9 Hematocrit (%) Date Value 07/23/2023 42.8 WBC (k/uL) Date Value 07/23/2023 12.94 Platelet Count (k/uL) Date Value 07/23/2023 330 HIV 12 Combo (Ag/Ab) Date Value Ref Range Status 07/23/2023 Nonreactive Nonreactive Final Perla Spann has been counseled on adherence to therapy, office visits and labs. S/he has a life expectancy greater than 12 months per chart notes. Patient does not have cirrhosis. Patient has been screened for signs of decompensation (ascites, jaundice, hepatic encephalopathy, esophageal varices. ) Using update labs and physical examination as performed at last office visit, calculated Plxaw-Kyqpzotg-Dxax (CTP) score is 5 Patients scheduled to receive an HCVNS3 protease inhibitor (i.e., grazoprevir, voxilaprevir, glecaprevir) should be assessed for a history of decompensated liver disease and liver disease severity using the Ajrin-Lboacigz-Koss (CTP) score if cirrhosis is determined to be likely present (as evidenced by clinical findings, radiology, Metavir fibrosis score of F4, pathology findings or other laboratory markers (FibroTest/FibroSure/FIB-4 index) Medication list has been reviewed for adverse reactions, medication toxicity and interactions by introduction of treatment using [employer] Hep interactions (https://www.[employer]-druginteractio ns.org) - no significant drug interactions were found Patient does not take efavirenz or organic anion transporting polypeptides 1 b1/3 (RAYC8Z9/3) inhibitors or strong inducers of CYP 450 (CYP3A) including: phenytoin, carbamazepine, rifampin, Isidro's Wort, atazanavir, darunavir, lopinavir, saquinavir, tipranavir, cyclosporine. Oxcarbazepine, phenobarbital, primidone. Bosentan (Tracleer), warfarin, Dabigatran (pradaxa) Patient does not take amiodarone HCV Treatment plan: -Candidate for treatment: YES -Medication(s): - Mavyret for 8 weeks - this treatment plan meets AASLD-IDSA guidelines -Therapeutic goal - achieve and sustain SVR as measured by HCV RNA test throughout and beyond treatment end date PLAN: - Medication reconciliation completed at last office visit. Medications are accurate as listed in chart. - Submit for prior authorization to insurance once referral is complete - Pharmacy will update on progress in this encounter as updates are available. - Provider office will manage lab orders and follow up Maulik Cruz, PharmD Pharmacist, [facility] Visit Assessment - Hepatology: Ivent complete: No Is pre-assessment?: Yes Pre-Assessment: Diagnosis: Chronic Hepatits C Medication: Mavyret Length of treatment: 8 Treatment History: Treatment naive Genotype: 3 Fibroscan Score: F2 Iyqqq-Angyzsby-Ukmf: 5 Cirrhotic: N/A iVent Started: No Maulik Cruz RPh [facility] 07-29-2023 Note HNO ID: [id number] Author: ?, ?, ? Service: ? Author Type: ? Type: Progress Notes Filed: 07/29/2023 16:51 Note Text: [facility] received prescription(s) for Mavyret from Dr. Ciarra Cotton's office. Benefits investigation was conducted, indicating that a prior authorization is required by pt's plan with [employer]. Note will be updated once prior authorization has been submitted. Gaurang Yoder CPhT (Dee) [facility] Neurology/Cardiology/Infections Disease [facility] P: F: [facility] 07-29-2023 Note HNO ID: [id number] Author: MAULIK CRUZ RPh Service: ? Author Type: Pharmacist Type: Progress Notes Filed: 08/09/2023 13:18 Note Text: [facility] received prescription(s) for Mavyret from Ciarra Cotton's office. Benefits investigation was conducted, indicating that a prior authorization is required. RICHARD was approved with details listed below: Plan Name: Xiomara RAMOS reference number: [id number] Approval Dates: 08-03-23 to 09-26-23 Pt's copay is $0. Shipment has been arranged, and pt will receive medication(s) on 08-11-23. A full drug interaction report was conducted, and no clinically significant interactions identified. I reviewed with patient appropriate dose and dosing frequency, administration directions (Take 3 tablets by mouth once daily with food), potential side effects, ability to self-administer and proper storage and handling requirements. S/he expressed understanding of the information we provided today, and received our contact information for the pharmacy if s/he had any other questions. No past medical history on file. 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 Med/dose confirmed: Yes Supplies needed: Welcome packet Copay amount: 0 Delivery method: FedEx Signature required: Waived on patient request Delivery address: Marcella Alberto [address] [place] [id number] Delivery date: 08/11/23 Total duration of treatment: 8 weeks Estimated Start Date: 08-11-23 Estimated Completion Date: 10-06-23 Estimated SVR 12: 12-29-23 [facility] Visit Assessment - Hepatology: Ivent complete: No Is pre-assessment?: No Is initial or refill assessment?: Yes Assessment to use: Initial Vaccination Assessment: Annual influenza vaccination reminder: Yes Date of influenza vaccination reminder: 08/09/2023 Vaccination assessment completed: Yes Date of most recent vaccination assessment: 08/09/2023 Initial Assessment: Current and prior medication therapy assessment completed: Yes Counseling on intended outcome of therapy: Yes Hepatic function panel, eGFR, hepatic fibrosis staging, treatment history: Yes HBV co-infection screening (HBsAg, anti-HBs, anti-HBc): Yes Hepatitis C genotype: Yes Hepatitis C RNA level: Yes HIV status: Yes HIV screening results: Yes CBC if on ribavirin: N/A testing in all women of childbearing potential prior to starting ribavirin: N/A Maulik Cruz [facility] 07-29-2023 Telephone encounter Note Nurse called the patient. Patient confirmed name and . Nurse relayed the information to the patient. Patient is worried about having cirrhosis, but nurse informed her that US states fatty liver and the fibroscan will give us another way to test whether there is cirrhosis. Patient expressed understanding and had no questions or concerns. Anamaria Caal RN July 29, 2023 1:55 PM [facility] 07-29-2023 Miscellaneous Notes Nurse called the patient. Patient confirmed name and . Nurse relayed the information to the patient. Patient is worried about having cirrhosis, but nurse informed her that US states fatty liver and the fibroscan will give us another way to test whether there is cirrhosis. Patient expressed understanding and had no questions or concerns. Anamaria Caal RN July 29, 2023 1:55 PM ----- Message from Ciarra Cotton APRN.CNP sent at 07/29/2023 1:39 PM EDT ----- Hello, Please advise patient that she does have active hep C. Mavyret has been prescribed and she will be contacted once approved by specialty pharmacy. Mavyret duration is 2 months in total. Mavyret will be taken daily. Please advise to get blood work at the end of each month while on treatment. Her ultrasound indicates fatty liver. WE will obtain the Fibroscan for further evaluation. Please advise to be 3 hours fasting prior to that. The rest of her blood work does not indicate other causes of liver disease which is good news. She is not immune to HAV/HBV; would advise Twinrix vaccine series. We can discuss further at her upcoming visit. Ciarra Doss documented in this encounter [facility] 07-29-2023 Telephone encounter Note ----- Message from Ciarra Cotton APRN.TAMARA sent at 07/29/2023 1:39 PM EDT ----- Hello, Please advise patient that she does have active hep C. Mavyret has been prescribed and she will be contacted once approved by specialty pharmacy. Mavyret duration is 2 months in total. Mavyret will be taken daily. Please advise to get blood work at the end of each month while on treatment. Her ultrasound indicates fatty liver. WE will obtain the Fibroscan for further evaluation. Please advise to be 3 hours fasting prior to that. The rest of her blood work does not indicate other causes of liver disease which is good news. She is not immune to HAV/HBV; would advise Twinrix vaccine series. We can discuss further at her upcoming visit. Ciarra Doss [facility] 07-23-2023 Note HNO ID: [id number] Author: UMU COTTON RT(R) Service: ? Author Type: Technologist Type: Progress Notes Filed: 07/23/2023 12:28 Note Text: Radiology Service Progress Note PATIENT NAME: Perla Spann DATE OF SERVICE: July 23, 2023 TIME: 12:27 PM PATIENT IDENTITY VERIFICATION COMPLETED USING TWO (2) IDENTIFIERS: Name and Date of confirmed by patient verbally. FALL SCREENING: Has the patient had 2 falls in the last year or 1 fall with injury or currently using an Ambulatory Assistive Device (Walker, Cane, Wheelchair, Crutches, etc.)? No PATIENT GENDER DATA: Female. status: : No status: NO. PATIENT RELEVANT IMPLANT DATA REVIEWED: Not Applicable PATIENT PRESENTS WITH AN IMPLANTABLE OR ATTACHED MULTI PURPOSE MACHINE OPERATOR: No RADIOLOGY DEPARTMENT: Ultrasound PERIPHERAL IV DATA: Not applicable SIGNED BY: Umu Cotton RDMS, RVT July 23, 2023 12:27 PM [facility] 07-23-2023 History of Presen t illness Narrative Radiology Service Progress Note PATIENT NAME: Perla Spann DATE OF SERVICE: July 23, 2023 TIME: 12:27 PM PATIENT IDENTITY VERIFICATION COMPLETED USING TWO (2) IDENTIFIERS: Name and Date of confirmed by patient verbally. FALL SCREENING: Has the patient had 2 falls in the last year or 1 fall with injury or currently using an Ambulatory Assistive Device (Walker, Cane, Wheelchair, Crutches, etc.)? No PATIENT GENDER DATA: Female. status: : No status: NO. PATIENT RELEVANT IMPLANT DATA REVIEWED: Not Applicable PATIENT PRESENTS WITH AN IMPLANTABLE OR ATTACHED MULTI PURPOSE MACHINE OPERATOR: No RADIOLOGY DEPARTMENT: Ultrasound PERIPHERAL IV DATA: Not applicable SIGNED BY: Umu Cotton RDMS, RVT July 23, 2023 12:27 PM documented in this encounter [facility] 07-02-2023 Instructions Ciarra Cotton APRN.GEOLOGICAL ENGINEER - 07/02/2023 4:10 PM EDT Please complete blood work Please be 3 hours fasting prior to next visit Please be 6 hours fasting prior to RUQ ultrasound documented in this encounter [facility] 07-02-2023 History of Presen t illness Narrative NAME: Perla Spann AGE: [age] year old Patient is referred in consultation by for an opinion regarding Hepatitis C and my final recommendations will be communicated back to the requesting physician by way of shared Medical Record. PRESENTING COMPLAINT: hepatitis C HISTORY Perla Spann is a 33 year old year old female with unknown PMHx who presents with HCV. 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 Daily use for 7-8 years with binge drinking (whiskey and beer). Stopped heavy drinking at 24 yrs old. Nutrition: Does not follow specific diet although states trying to reduce carbs Has lost about 75 lbs for about given improved dietary habits, increased physical activity Metabolic Syndrome Risk factors: 2/5 1) Diabetes/ Abnormal FBS >100mg/dL: no 2) Hypertension : yes 3)Triglycerides more then 150 : no 4) HDL (<50 female and <40 male): no 5) Central obesity ( Waist >102 men and >88 female) - yes Risk Factors for Liver Disease: 1. Blood transfusions before 1991: No 2. IVDA: Yes, last use 4 years. Relapsed 2.5 yrs ago with smoking, IVDU. 3. Intranasal coccaine use: Yes, last use 4+ years ago 4. Tattoos: Yes, completed homemade 5. Service: No 6. High risk sexual behavior: No 7. Alcohol: Last use 04/19/23. 8. Obesity: Yes 9. Hyperlipidemia: No 10. Prolonged exposure to hepatotoxic meds: No 11. Other autoimmune disorders No OTC herbal supplements: Denies Tylenol use: Denies Denies jaundice, nausea, vomiting, diarrhea, hematochezia, hematemesis, ascites, episodes of confusion. IMAGING: - unknown No past surgical history on file. No past medical history on file. No current outpatient medications on file. No current facility-administered medications for this visit. ALLERGIES Not on File FAMILY HISTORY Liver Problems: No No family history on file. GI SPECIFIC ROS Difficulty swallowing / foods sticking in throat: No Heartburn: No Filling up quickly at meals: No Loss of appetite: No Nausea: No Vomiting: No Abdominal pain: Occasionally, right sided pain Recent change in bowel movements: No Bloody or black, bowel movements: No Constipation: occasionally Diarrhea: No Loss of control of bowel movements: No Night sweats, fever, chills: No Thought or memory problems: No Fluid in abdomen (ascites): No Prominent leg swelling: No Vomiting blood: No Recent change in weight: No PHYSICAL EXAMINATION There were no vitals taken for this visit. General Appearance: Well appearing, alert, in no acute distress, well-hydrated, well nourished. Eyes: no scleral icterus Abdomen: not distended Extremities: no cyanosis or edema Skin: no jaundice, no spider angiomas, no palmar erythema Neuro:alert, oriented x 3, pleasant and in no acute distress Recent Labs: No results found for: HB , HCT , WBC No results found for: GLUC , K , NA , CHLOR , CO2 , CREAT , BUN , ANION , CA No results found for: ALB , TBILI , CBILI , ALKPHOS , AST , ALT , TPROT Computed MELD 3.0 unavailable. One or more values for this score either were not found within the given timeframe or did not fit some other criterion. Computed MELD-Na unavailable. One or more values for this score either were not found within the given timeframe or did not fit some other criterion. Assessment IMPRESSION Perla Spann is a 33 year old year old female with unknown PMHx who presents with HCV. Risk factors include IVDU and she is treatment naive. Will obtain updated HCV quant, genotype, and serologic evaluation. Will also obtain updated imaging and Fibroscan for further steatosis/fibrosis staging. -Discussed Hepatitis C and it's natural progression -Discussed risk factors for Hep C -Discussed liver disease and it's progression -Discussed personal risk factors for the development of liver disease/cirrhosis -Discussed treatment/plan -Discussed sx of worsening liver disease -Discussed need to avoid alcohol intake PLAN Chronic HCV: - repeat HFP - HCV quant, HCV genotype, HIV 1/2 COMBO - serologic evaluation - RUQ US - Fibroscan Return to office in 1 months. During this patient visit I have spent approximately 30 minutes out of 30 in counseling regarding test results and coordinating care. Ciarra Cotton APRN.CNP July 02, 2023 6:39 AM documented in this encounter [facility] 07-02-2023 Note HNO ID: [id number] Author: CIARRA COTTON APRN.CNP Service: ? Author Type: Nurse Practitioner Type: Progress Notes Filed: 07/29/2023 13:38 Note Text: NAME: Perla Spann AGE: [age] year old Patient is referred in consultation by for an opinion regarding Hepatitis C and my final recommendations will be communicated back to the requesting physician by way of shared Medical Record. PRESENTING COMPLAINT: hepatitis C HISTORY Perla Spann is a 33 year old year old female with unknown PMHx who presents with HCV. 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 Daily use for 7-8 years with binge drinking (whiskey and beer). Stopped heavy drinking at 24 yrs old. Nutrition: Does not follow specific diet although states trying to reduce carbs Has lost about 75 lbs for about given improved dietary habits, increased physical activity Metabolic Syndrome Risk factors: 2/5 1) Diabetes/ Abnormal FBS >100mg/dL: no 2) Hypertension : yes 3)Triglycerides more then 150 : no 4) HDL (<50 female and <40 male): no 5) Central obesity ( Waist >102 men and >88 female) - yes Risk Factors for Liver Disease: 1. Blood transfusions before 1991: No 2. IVDA: Yes, last use 4 years. Relapsed 2.5 yrs ago with smoking, IVDU. 3. Intranasal coccaine use: Yes, last use 4+ years ago 4. Tattoos: Yes, completed homemade 5. Service: No 6. High risk sexual behavior: No 7. Alcohol: Last use 04/19/23. 8. Obesity: Yes 9. Hyperlipidemia: No 10. Prolonged exposure to hepatotoxic meds: No 11. Other autoimmune disorders No OTC herbal supplements: Denies Tylenol use: Denies Denies jaundice, nausea, vomiting, diarrhea, hematochezia, hematemesis, ascites, episodes of confusion. IMAGING: - unknown No past surgical history on file. No past medical history on file. No current outpatient medications on file. No current facility-administered medications for this visit. ALLERGIES Not on File FAMILY HISTORY Liver Problems: No No family history on file. GI SPECIFIC ROS Difficulty swallowing / foods sticking in throat: No Heartburn: No Filling up quickly at meals: No Loss of appetite: No Nausea: No Vomiting: No Abdominal pain: Occasionally, right sided pain Recent change in bowel movements: No Bloody or black, bowel movements: No Constipation: occasionally Diarrhea: No Loss of control of bowel movements: No Night sweats, fever, chills: No Thought or memory problems: No Fluid in abdomen (ascites): No Prominent leg swelling: No Vomiting blood: No Recent change in weight: No PHYSICAL EXAMINATION There were no vitals taken for this visit. General Appearance: Well appearing, alert, in no acute distress, well-hydrated, well nourished. Eyes: no scleral icterus Abdomen: not distended Extremities: no cyanosis or edema Skin: no jaundice, no spider angiomas, no palmar erythema Neuro:alert, oriented x 3, pleasant and in no acute distress Recent Labs: No results found for: HB , HCT , WBC No results found for: GLUC , K , NA , CHLOR , CO2 , CREAT , BUN , ANION , CA No results found for: ALB , TBILI , CBILI , ALKPHOS , AST , ALT , TPROT Computed MELD 3.0 unavailable. One or more values for this score either were not found within the given timeframe or did not fit some other criterion. Computed MELD-Na unavailable. One or more values for this score either were not found within the given timeframe or did not fit some other criterion. Assessment IMPRESSION ePrla Spann is a 33 year old year old female with unknown PMHx who presents with HCV. Risk factors include IVDU and she is treatment naive. Will obtain updated HCV quant, genotype, and serologic evaluation. Will also obtain updated imaging and Fibroscan for further steatosis/fibrosis staging. -Discussed Hepatitis C and it's natural progression -Discussed risk factors for Hep C -Discussed liver disease and it's progression -Discussed personal risk factors for the development of liver disease/cirrhosis -Discussed treatment/plan -Discussed sx of worsening liver disease -Discussed need to avoid alcohol intake PLAN Chronic HCV: - repeat HFP - HCV quant, HCV genotype, HIV 1/2 COMBO - serologic evaluation - RUQ US - Fibroscan Return to office in 1 months. During this patient visit I have spent approximately 30 minutes out of 30 in counseling regarding test results and coordinating care. Ciarra Almazan (more content not included)... [facility] 05-12-2023 Hospital Discharg e instructions Follow Up Care 05/12/2023 14:12:22 With:Elise GODINEZ CNP Address: [address] [place], [place] [id number]- When:Within 6 Month(s) [facility] 04-20-2023 Hospital Discharg e instructions Patient Education 04/20/2023 16:42:07 BMI for Adults BMI for Adults What is BMI? Body mass index (BMI) is a number that is calculated from a person's weight and height. BMI can help estimate how much of a person's weight is composed of fat. BMI does not measure body fat directly. Rather, it is an alternative to procedures that directly measure body fat, which can be difficult and expensive. BMI can help identify people who may be at higher risk for certain medical problems. What are BMI measurements used for? BMI is used as a screening tool to identify possible weight problems. It helps determine whether a person is obese, overweight, a healthy weight, or underweight. BMI is useful for: Identifying a weight problem that may be related to a medical condition or may increase the risk for medical problems. Promoting changes, such as changes in diet and exercise, to help reach a healthy weight. BMI screening can be repeated to see if these changes are working. How is BMI calculated? BMI involves measuring your weight in relation to your height. Both height and weight are measured, and the BMI is calculated from those numbers. This can be done either in [place] ([place] or metric measurements. Note that charts and online BMI calculators are available to help you find your BMI quickly and easily without having to do these calculations yourself. To calculate your BMI in [place] ([place] measurements: 1.Measure your weight in pounds (lb). 2.Multiply the number of pounds by 703. For example, for a person who weighs 180 lb, multiply that number by 703, which equals 126,540. 3.Measure your height in inches. Then multiply that number by itself to get a measurement called inches squared. For example, for a person who is 70 inches tall, the inches squared measurement is 70 inches x 70 inches, which equals 4,900 inches squared. 4.Divide the total from step 2 (number of lb x 703) by the total from step 3 (inches squared): 126,540 4,900 = 25.8. This is your BMI. To calculate your BMI in metric measurements: 1.Measure your weight in kilograms (kg). 2.Measure your height in meters (m). Then multiply that number by itself to get a measurement called meters squared. For example, for a person who is 1.75 m tall, the meters squared measurement is 1.75 m x 1.75 m, which is equal to 3.1 meters squared. 3.Divide the number of kilograms (your weight) by the meters squared number. In this example: 70 3.1 = 22.6. This is your BMI. What do the results mean? BMI charts are used to identify whether you are underweight, normal weight, overweight, or obese. The following guidelines will be used: Underweight: BMI less than 18.5. Normal weight: BMI between 18.5 and 24.9. Overweight: BMI between 25 and 29.9. Obese: BMI of 30 or above. Keep these notes in mind: Weight includes both fat and muscle, so someone with a muscular build, such as an athlete, may have a BMI that is higher than 24.9. In cases like these, BMI is not an accurate measure of body fat. To determine if excess body fat is the cause of a BMI of 25 or higher, further assessments may need to be done by a health care provider. BMI is usually interpreted in the same way for men and women. Where to find more information For more information about BMI, including tools to quickly calculate your BMI, go to these websites: Centers for Disease Control and Prevention: www.cdc.gov [employer] Heart Association: www.heart.org National Heart, Lung, and Blood Boomer: www.nhlbi.nih.gov Summary Body mass index (BMI) is a number that is calculated from a person's weight and height. BMI may help estimate how much of a person's weight is composed of fat. BMI can help identify those who may be at higher risk for certain medical problems. BMI can be measured using [place] measurements or metric measurements. BMI charts are used to identify whether you are underweight, normal weight, overweight, or obese. This information is not intended to replace advice given to you by your health care provider. Make sure you discuss any questions you have with your health care provider. Document Revised: 11/08/2019 Document Reviewed: 09/15/2019 [employer] Patient Education 2022 [employer]. 04/20/2023 16:42:01 Obesity, Adult, Quff-dx-Borc Obesity, Adult Obesity is having too much body fat. Being obese means that your weight is more than what is healthy for you. BMI (body mass index) is a number that explains how much body fat you have. If you have a BMI of 30 or more, you are obese. Obesity can cause serious health problems, such as: Stroke. Coronary artery disease (CAD). Type 2 diabetes. Some types of cancer. High blood pressure (hypertension). High cholesterol. Gallbladder stones. Obesity can also contribute to: Osteoarthritis. Sleep apnea. Infertility problems. What are the causes? Eating meals each day that are high in calories, sugar, and fat. Drinking a lot of drinks that have sugar in them. Being born with genes that may make you more likely to become obese. Having a medical condition that causes obesity. Taking certain medicines. Sitting a lot (having a sedentary lifestyle). Not getting enough sleep. What increases the risk? Having a family history of obesity. Living in an area with limited access to: ?Flores, recreation centers, or sidewalks. ?Healthy food choices, such as grocery stores and farmers' markets. What are the signs or symptoms? The main sign is having too much body fat. How is this treated? Treatment for this condition often includes changing your lifestyle. Treatment may include: Changing your diet. This may include making a healthy meal plan. Exercise. This may include activity that causes your heart to beat faster (aerobic exercise) and strength training. Work with your doctor to design a program that works for you. Medicine to help you lose weight. This may be used if you are not able to lose one pound a week after 6 weeks of healthy eating and more exercise. Treating conditions that cause the obesity. Surgery. Options may include gastric banding and gastric bypass. This may be done if: ?Other treatments have not helped to improve your condition. ?You have a BMI of 40 or higher. ?You have life-threatening health problems related to obesity. Follow these instructions at home: Eating and drinking Follow advice from your doctor about what to eat and drink. Your doctor may tell you to: ?Limit fast food, sweets, and processed snack foods. ?Choose low-fat options. For example, choose low-fat milk instead of whole milk. ?Eat five or more servings of fruits or vegetables each day. ?Eat at home more often. This gives you more control over what you eat. ?Choose healthy foods when you eat out. ?Learn to read food labels. This will help you learn how much food is in one serving. ?Keep low-fat snacks available. ?Avoid drinks that have a lot of sugar in them. These include soda, fruit juice, iced tea with sugar, and flavored milk. Drink enough water to keep your pee (urine) pale yellow. Do not go on fad diets. Physical activity Exercise often, as told by your doctor. Most adults should get up to 150 minutes of moderate-intensity exercise every week.Ask your doctor: ?What types of exercise are safe for you. ?How often you should exercise. Warm up and stretch before being active. Do slow stretching after being active (cool down). Rest between times of being active. Lifestyle Work with your doctor and a food expert (dietitian) to set a weight-loss goal that is best for you. Limit your screen time. Find ways to reward yourself that do not involve food. Do not drink alcohol if: ?Your doctor tells you not to drink. ?You are , may be , or are planning to become . If you drink alcohol: ?Limit how much you have to: ?0 1 drink a day for women. ?0 2 drinks a day for men. ?Know how much alcohol is in your drink. In the [place] one drink equals one 12 oz bottle of beer (355 mL), one 5 oz glass of wine (148 mL), or one 1 oz glass of hard liquor (44 mL). General instructions Keep a weight-loss journal. This can help you keep track of: ?The food that you eat. ?How much exercise you get. Take upbs-duj-ufkfijy and prescription medicines only as told by your doctor. Take vitamins and supplements only as told by your doctor. Think about joining a support group. Pay attention to your mental health as obesity can lead to depression or self esteem issues. Keep all follow-up visits. Contact a doctor if: You cannot meet your weight-loss goal after you have changed your diet and lifestyle for 6 weeks. You are having trouble breathing. Summary Obesity is having too much body fat. Being obese means that your weight is more than what is healthy for you. Work with your doctor to set a weight-loss goal. Get regular exercise as told by your doctor. This information is not intended to replace advice given to you by your health care provider. Make sure you discuss any questions you have with your health care provider. Document Revised: 09/23/2021 Document Reviewed: 09/23/2021 [employer] Patient Education 2022 [employer]. 04/20/2023 16:42:00 E-Cigarette or Vaping Use-Associated Lung Injury E-Cigarette or Vaping Use-Associated Lung Injury E-cigarette or vaping use-associated lung injury (EVALI) is a lung condition in people who smoke electronic cigarettes (vape). Electronic cigarettes are commonly called e-cigarettes. EVALI is not a lung infection. EVALI damages lung tissue directly. E-cigarettes that deliver the active ingredient in marijuana (THC) are associated with more cases of EVALI. This may be from a substance called vitamin E acetate that is often used in e-cigarettes that contain THC. Vitamin E acetate causes injury when inhaled into the lungs. Other harmful ingredients in e-cigarettes may also cause lung injury. What are the causes? This condition happens when a person vapes e-cigarettes. The exact cause of EVALI is not known. Vitamin E acetate is most likely a primary cause, but other ingredients may play a role. E-cigarettes that deliver only nicotine may also damage the lungs. What increases the risk? You are more likely to develop this condition if: You use an e-cigarette to vape marijuana. You use an e-cigarette sold to you from someone else, instead of buying it at a store. You have an underlying lung disease, such as asthma or chronic obstructive pulmonary disease (COPD). You have heart disease or high blood pressure. You currently smoke cigarettes or used to smoke them. What are the signs or symptoms? Symptoms of this condition include: Cough. Shortness of breath. Chest pain. Stomach pain. Nausea or vomiting. Fever and chills. Weight loss. Symptoms of EVALI may start days or weeks after vaping. How is this diagnosed? Your health care provider may suspect EVALI if you have signs and symptoms of the condition after vaping. There is no specific test for EVALI. The symptoms are similar to other lung diseases. You may have imaging tests to rule out other conditions. A chest X-ray or CT scan may also be done to get more information about your condition. How is this treated? There is no specific treatment for EVALI. Most people need to get care in the hospital. This condition may be treated with oxygen and medicines to reduce swelling in the lungs and airways. In severe cases, a respirator may be needed to help with breathing. Follow these instructions at home: Take zyfd-juk-ucpznlz and prescription medicines only as told by your health care provider. Return to your normal activities as told by your health care provider. Ask your health care provider what activities are safe for you. Do not use any products that contain nicotine or tobacco. These products include cigarettes, chewing tobacco, and vaping devices, such as e-cigarettes. If you need help quitting, ask your health care provider. Keep all follow-up visits. This is important. Where to find more information Japanese Lung Association: www.lung.org Centers for Disease Control and Prevention: www.cdc.gov Contact a health care provider if: You have any signs or symptoms of EVALI after vaping. Get help right away if: You have chest pain or trouble breathing. These symptoms may represent an emergency. Get medical help right away. Call 911. Do not wait to see if the symptoms will go away. Do not drive yourself to the hospital. Summary EVALI is a lung condition associated with vaping e-cigarettes. The exact cause of EVALI is not known. Signs and symptoms of EVALI may start days or weeks after vaping and are similar to other lung conditions. There is no test to diagnose EVALI. There is no specific treatment for EVALI. Most people need care in the hospital. This information is not intended to replace advice given to you by your health care provider. Make sure you discuss any questions you have with your health care provider. Document Revised: 11/12/2021 Document Reviewed: 11/12/2021 [employer] Patient Education 2022 [employer]. Follow Up Care 10/22/2022 16:51:21 With:Elise GODINEZ CNP Address: [address] [place] [phone]- When:Within 3 Month(s) [facility] 04-20-2023 Evaluation + Plan note Future Scheduled [id number] 04/20/23Comprehensive Metabolic Panel 04/20/23 [facility] 12-07-2022 Note - From: Tiffani Jeronimo To: [facility] - Administrative; Sent: 11/23/2022 09:11:35 EDT Show up: 11/23/2022 09:11:00 EDT Subject: Ambulatory Reminder Due Date/Time: 12/07/2022 09:11:00 EDT Reminder/Recall Please call patient to schedule when insurance is active through . Per Dr Maxwell Patient needs to be seen by him before starting treatment due to fibroscan results. Patient called today and wanted to be scheduled for late December, insurance is not credentialed yet and she would like us to keep checking on insurance status before appointment for possible move up or back. [facility] 10-22-2022 Hospital Discharg e instructions Patient Education 10/22/2022 16:34:27 Colposcopy, Care After, Ipxt-jp-Wjyo Colposcopy, Care After The following information offers guidance on how to care for yourself after your procedure. Your doctor may also give you more specific instructions. If you have problems or questions, contact your doctor. What can I expect after the procedure? If you did not have a sample of your tissue taken out (did not have a biopsy), you may only have some spotting of blood for a few days. You can go back to your normal activities. If you had a sample of your tissue taken out, it is common to have: Soreness and mild pain. These may last for a few days. Mild bleeding or fluid (discharge) coming from your vagina. The fluid will look dark and grainy. You may have this for a few days. The fluid may be caused by a liquid that was used during your procedure. You may need to wear a sanitary pad. Spotting of blood for at least 48 hours after the procedure. Follow these instructions at home: Medicines Take zauf-vsw-uvychnb and prescription medicines only as told by your doctor. Ask your doctor what jhho-uuu-zhdifdo pain medicines and prescription medicines you can start taking again. This is very important if you take blood thinners. Activity For at least 3 days, or for as long as told by your doctor, avoid: ?Douching. ?Using tampons. ?Having sex. Return to your normal activities as told by your doctor. Ask your doctor what activities are safe for you. General instructions Ask your doctor if you may take baths, swim, or use a hot tub. You may take showers. If you use control (contraception), keep using it. Keep all follow-up visits. Contact a doctor if: You have a fever or chills. You faint or feel light-headed. Get help right away if: You bleed a lot from your vagina. A lot of bleeding means that the bleeding soaks through a pad in less than 1 hour. You have clumps of blood (blood clots) coming from your vagina. You have signs that could mean you have an infection. This may be fluid coming from your vagina that is: ?Different than normal. ?Yellow. ?Bad-smelling. You have very bad pain or cramps in your lower belly that do not get better with medicine. Summary If you did not have a sample of your tissue taken out, you may only have some spotting of blood for a few days. You can go back to your normal activities. If you had a sample of your tissue taken out, it is common to have mild pain for a few days and spotting for 48 hours. Avoid douching, using tampons, and having sex for at least 3 days after the procedure or for as long as told. Get help right away if you have a lot of bleeding, very bad pain, or signs of infection. This information is not intended to replace advice given to you by your health care provider. Make sure you discuss any questions you have with your health care provider. Document Revised: 07/13/2021 Document Reviewed: 07/13/2021 [employer] Patient Education 2022 [employer]. Follow Up Care 08/27/2022 15:03:47 With:Elise GODINEZ CNP Address: [address] [place] [phone]- When:Within 6 Month(s) [facility] 08-27-2022 Hospital Discharg e instructions Patient Education 08/27/2022 14:57:21 Obesity, Adult, Njio-op-Xtmm Obesity, Adult Obesity is having too much body fat. Being obese means that your weight is more than what is healthy for you. BMI (body mass index) is a number that explains how much body fat you have. If you have a BMI of 30 or more, you are obese. Obesity can cause serious health problems, such as: Stroke. Coronary artery disease (CAD). Type 2 diabetes. Some types of cancer. High blood pressure (hypertension). High cholesterol. Gallbladder stones. Obesity can also contribute to: Osteoarthritis. Sleep apnea. Infertility problems. What are the causes? Eating meals each day that are high in calories, sugar, and fat. Drinking a lot of drinks that have sugar in them. Being born with genes that may make you more likely to become obese. Having a medical condition that causes obesity. Taking certain medicines. Sitting a lot (having a sedentary lifestyle). Not getting enough sleep. What increases the risk? Having a family history of obesity. Living in an area with limited access to: ?Flores, recreation centers, or sidewalks. ?Healthy food choices, such as grocery stores and [employer] markets. What are the signs or symptoms? The main sign is having too much body fat. How is this treated? Treatment for this condition often includes changing your lifestyle. Treatment may include: Changing your diet. This may include making a healthy meal plan. Exercise. This may include activity that causes your heart to beat faster (aerobic exercise) and strength training. Work with your doctor to design a program that works for you. Medicine to help you lose weight. This may be used if you are not able to lose one pound a week after 6 weeks of healthy eating and more exercise. Treating conditions that cause the obesity. Surgery. Options may include gastric banding and gastric bypass. This may be done if: ?Other treatments have not helped to improve your condition. ?You have a BMI of 40 or higher. ?You have life-threatening health problems related to obesity. Follow these instructions at home: Eating and drinking Follow advice from your doctor about what to eat and drink. Your doctor may tell you to: ?Limit fast food, sweets, and processed snack foods. ?Choose low-fat options. For example, choose low-fat milk instead of whole milk. ?Eat five or more servings of fruits or vegetables each day. ?Eat at home more often. This gives you more control over what you eat. ?Choose healthy foods when you eat out. ?Learn to read food labels. This will help you learn how much food is in one serving. ?Keep low-fat snacks available. ?Avoid drinks that have a lot of sugar in them. These include soda, fruit juice, iced tea with sugar, and flavored milk. Drink enough water to keep your pee (urine) pale yellow. Do not go on fad diets. Physical activity Exercise often, as told by your doctor. Most adults should get up to 150 minutes of moderate-intensity exercise every week.Ask your doctor: ?What types of exercise are safe for you. ?How often you should exercise. Warm up and stretch before being active. Do slow stretching after being active (cool down). Rest between times of being active. Lifestyle Work with your doctor and a food expert (dietitian) to set a weight-loss goal that is best for you. Limit your screen time. Find ways to reward yourself that do not involve food. Do not drink alcohol if: ?Your doctor tells you not to drink. ?You are , may be , or are planning to become . If you drink alcohol: ?Limit how much you have to: ?0 1 drink a day for women. ?0 2 drinks a day for men. ?Know how much alcohol is in your drink. In the [place] one drink equals one 12 oz bottle of beer (355 mL), one 5 oz glass of wine (148 mL), or one 1 oz glass of hard liquor (44 mL). General instructions Keep a weight-loss journal. This can help you keep track of: ?The food that you eat. ?How much exercise you get. Take eljv-hxz-pfkfefj and prescription medicines only as told by your doctor. Take vitamins and supplements only as told by your doctor. Think about joining a support group. Pay attention to your mental health as obesity can lead to depression or self esteem issues. Keep all follow-up visits. Contact a doctor if: You cannot meet your weight-loss goal after you have changed your diet and lifestyle for 6 weeks. You are having trouble breathing. Summary Obesity is having too much body fat. Being obese means that your weight is more than what is healthy for you. Work with your doctor to set a weight-loss goal. Get regular exercise as told by your doctor. This information is not intended to replace advice given to you by your health care provider. Make sure you discuss any questions you have with your health care provider. Document Revised: 09/23/2021 Document Reviewed: 09/23/2021 [employer] Patient Education 2022 [employer]. 08/27/2022 14:57:18 E-Cigarette or Vaping Use-Associated Lung Injury E-Cigarette or Vaping Use-Associated Lung Injury E-cigarette or vaping use-associated lung injury (EVALI) is a lung condition in people who smoke electronic cigarettes (vape). Electronic cigarettes are commonly called e-cigarettes. EVALI is not a lung infection. EVALI damages lung tissue directly. E-cigarettes that deliver the active ingredient in marijuana (THC) are associated with more cases of EVALI. This may be from a substance called vitamin E acetate that is often used in e-cigarettes that contain THC. Vitamin E acetate causes injury when inhaled into the lungs. Other harmful ingredients in e-cigarettes may also cause lung injury. What are the causes? This condition happens when a person vapes e-cigarettes. The exact cause of EVALI is not known. Vitamin E acetate is most likely a primary cause, but other ingredients may play a role. E-cigarettes that deliver only nicotine may also damage the lungs. What increases the risk? You are more likely to develop this condition if: You use an e-cigarette to vape marijuana. You use an e-cigarette sold to you from someone else, instead of buying it at a store. You have an underlying lung disease, such as asthma or chronic obstructive pulmonary disease (COPD). You have heart disease or high blood pressure. You currently smoke cigarettes or used to smoke them. What are the signs or symptoms? Symptoms of this condition include: Cough. Shortness of breath. Chest pain. Stomach pain. Nausea or vomiting. Fever and chills. Weight loss. Symptoms of EVALI may start days or weeks after vaping. How is this diagnosed? Your health care provider may suspect EVALI if you have signs and symptoms of the condition after vaping. There is no specific test for EVALI. The symptoms are similar to other lung diseases. You may have imaging tests to rule out other conditions. A chest X-ray or CT scan may also be done to get more information about your condition. How is this treated? There is no specific treatment for EVALI. Most people need to get care in the hospital. This condition may be treated with oxygen and medicines to reduce swelling in the lungs and airways. In severe cases, a respirator may be needed to help with breathing. Follow these instructions at home: Take kwmf-kay-tjrimyl and prescription medicines only as told by your health care provider. Return to your normal activities as told by your health care provider. Ask your health care provider what activities are safe for you. Do not use any products that contain nicotine or tobacco. These products include cigarettes, chewing tobacco, and vaping devices, such as e-cigarettes. If you need help quitting, ask your health care provider. Keep all follow-up visits. This is important. Where to find more information [employer]: www.lung.org Centers for Disease Control and Prevention: www.cdc.gov Contact a health care provider if: You have any signs or symptoms of EVALI after vaping. Get help right away if: You have chest pain or trouble breathing. These symptoms may represent an emergency. Get medical help right away. Call 911. Do not wait to see if the symptoms will go away. Do not drive yourself to the hospital. Summary EVALI is a lung condition associated with vaping e-cigarettes. The exact cause of EVALI is not known. Signs and symptoms of EVALI may start days or weeks after vaping and are similar to other lung conditions. There is no test to diagnose EVALI. There is no specific treatment for EVALI. Most people need care in the hospital. This information is not intended to replace advice given to you by your health care provider. Make sure you discuss any questions you have with your health care provider. Document Revised: 11/12/2021 Document Reviewed: 11/12/2021 [employer] Patient Education 2022 [employer]. Follow Up Care 06/15/2022 15:19:28 With:Elise GODINEZ CNP Address: [address] [place] [id number]- When:Within 1 Month(s) [facility] 05-13-2022 Hospital Discharg e instructions Follow Up Care 05/13/2022 15:14:08 With:Elise GODINEZ CNP Address: [address] [place] [phone]- When:Within 2 Month(s) [facility] 04-30-2022 Hospital Discharg e instructions Follow Up Care 04/30/2022 16:03:16 With:Elise GODINEZ CNP Address: [address] [place] [phone]- When:Within 1 Month(s) [facility] 04-13-2022 Hospital Discharg e instructions Follow Up Care 04/13/2022 14:25:45 With:Elise GODINEZ CNP Address: [address] [place] [phone]- When:Within 2 Week(s) [facility] Evaluation + Plan note No data available for this section [facility] Evaluation + Plan note Future Appointments Appointment Date:05/13/2022 02:40:00 PM Scheduled Provider:Elise GODINEZ CNP Location:[facility] Appointment Type:FM Open [facility] Evaluation + Plan note Future Appointments Appointment Date:05/18/2022 03:30:00 PM Scheduled Provider: Location:.[facility] Appointment Type:US Duplex Procedures (FT) Appointment Date:06/15/2022 02:40:00 PM Scheduled Provider:Elise GODINEZ CNP Location:[facility] Appointment Type: Open Future Scheduled TestsHCV Antibody RFX to Quant PCR 05/13/22Basic Metabolic Panel 05/13/22Lipid Panel 05/13/22US PVR Lower EXT Complete Bilat 05/18/22 [facility] Evaluation + Plan note Future Appointments Appointment Date:06/15/2022 02:40:00 PM Scheduled Provider:Elise GODINEZ CNP Location:[facility] Appointment Type: Open Future Scheduled TestsHCV Antibody RFX to Quant PCR 05/13/22Basic Metabolic Panel 05/13/22Lipid Panel 05/13/22 [facility] Evaluation + Plan note Future Appointments Appointment Date:06/15/2022 02:40:00 PM Scheduled Provider:Elise GODINEZ CNP Location:[facility] Appointment Type: Open Diagnostic Tests PendingHCV Antibody RFX to Quant PCR 05/30/22 [facility] Evaluation + Plan note Future Appointments Appointment Date:07/30/2022 03:00:00 PM Scheduled Provider:Padmini MAXWELL MD Location:[facility] Appointment Type:BADH New Patient Appointment Date:08/17/2022 02:40:00 PM Scheduled Provider:Elise GODINEZ CNP Location:[facility] Appointment Type: Open [facility] Evaluation + Plan note Future Appointments Appointment Date:08/12/2022 08:30:00 AM Scheduled Provider: Location:[facility] Appointment Type:Surgery FT Appointment Date:08/27/2022 02:40:00 PM Scheduled Provider:Elise GODINEZ CNP Location:[facility] Appointment Type: Open Future Scheduled TestsLab Miscellaneous-LC 07/30/22HCV Genotyping Non Reflex 07/30/22HIV Screen 4th Generation wRfx 07/30/22CBC w/ Auto Diff 07/30/22Comprehensive Metabolic Panel 07/30/22Hepatitis B Surface Antibody 07/30/22Hepatitis B Surface Antigen 07/30/22 [facility] Evaluation + Plan note Future Appointments Appointment Date:08/27/2022 02:40:00 PM Scheduled Provider:Elise GODINEZ CNP Location:[facility] Appointment Type: Open Diagnostic Tests PendingUrine 7 Drugs+Alcohol 08/12/22HCV Genotyping Non Reflex 08/12/22Hepatitis B Surface Antibody 08/12/22Hepatitis B Surface Antigen 08/12/22HIV Screen 4th Generation wRfx 08/12/22 [facility] Evaluation + Plan note Future Appointments Appointment Date:10/22/2022 04:20:00 PM Scheduled Provider:Elise GODINEZ CNP Location:[facility] Appointment Type:[facility] Evaluation + Plan note Future Appointments Appointment Date:04/20/2023 04:40:00 PM Scheduled Provider:Elise GODINEZ CNP Location:[facility] Appointment Type:[facility] Evaluation + Plan note Future Appointments Appointment Date:04/20/2023 04:40:00 PM Scheduled Provider:Elise GODINEZ CNP Location:[facility] Appointment Type: Open Diagnostic Tests PendingPAP w/ HPV and Genotype rflx 10/22/22 [facility] Evaluation note Diagnosis Chronic hepatitis C without hepatic coma (HCC) Chronic hepatitis C without mention of hepatic coma [facility] Diagnosis Chronic hepatitis C without hepatic coma (HCC)- Primary Chronic hepatitis C without mention of hepatic coma Chronic hepatitis C without hepatic coma (HCC) Chronic hepatitis C without mention of hepatic coma [facility] Diagnosis Chronic hepatitis C with hepatic coma (HCC)- Primary Chronic hepatitis C with hepatic coma [facility] Diagnosis Chronic hepatitis C without hepatic coma (HCC)- Primary Chronic hepatitis C without mention of hepatic coma [facility] Diagnosis 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, chronic (HCC)- Primary Chronic hepatitis C without mention of hepatic coma [facility] Diagnosis Chronic hepatitis C with hepatic coma (HCC)- Primary Chronic hepatitis C with hepatic coma [facility] Diagnosis Chronic hepatitis C without hepatic coma (HCC)- Primary Chronic hepatitis C without mention of hepatic coma [facility] No data available [facility] this [facility] No data available for this section [facility] Reason for referral (narrative)* Diagnostic Procedure Only (Routine) - Closed Specialty Diagnoses / Procedures Referred By Ana t Referred To Contact [facility] Diagnoses Chronic hepatitis C without hepatic coma (HCC) Procedures US ABD SPLEEN US ABDOMINAL REAL TIME W/IMAGE LIMITED Ciarra Cotton APRN.GEOLOGICAL ENGINEER [address] [place] [address] [facility] [place] [address] Referral ID Status Reason Start Date Expiration Date V isits Requested Visits Authorized [id number] Closed Auto-Generate d Referral 07/02/2023 07/31/2024 1 1 * Diagnostic Procedure Only (Routine) - Closed Specialty Diagnoses / Procedures Referred By Contac t Referred To Contact [facility] Diagnoses Chronic hepatitis C without hepatic coma (HCC) Procedures US ABD RIGHT UPPER QUADRANT US ABDOMINAL REAL TIME W/IMAGE LIMITED Ciarra Cotton APRN.CNP [address] [place] [id number] [facility]95 Referral ID Status Reason Start Date Expiration Date V isits Requested Visits Authorized [id number] Closed Auto-Generate d Referral 07/02/2023 07/31/2024 1 1 [facility] Diagnostic Procedure Only (Routine) - Closed Specialty Diagnoses / Procedures Referred By Contac t Referred To Contact [facility] IMAG[facility] Diagnoses Chronic hepatitis C without hepatic coma (HCC) Procedures US ABD SPLEEN US ABDOMINAL REAL TIME W/IMAGE LIMITED Ciarra Cotton APRN.CNP [address] [place] [id number] [facility] [place] [address] Referral ID Status Reason Start Date Expiration Date V isits Requested Visits Authorized [id number] Closed Auto-Generate d Referral 07/02/2023 07/31/2024 1 1 * Diagnostic Procedure Only (Routine) - Closed Specialty Diagnoses / Procedures Referred By Prakashac t Referred To Contact [facility] IM[facility] Diagnoses Chronic hepatitis C without hepatic coma (HCC) Procedures US ABD RIGHT UPPER QUADRANT US ABDOMINAL REAL TIME W/IMAGE LIMITED Ciarra Cotton APRN.GEOLOGICAL ENGINEER [address] [place] [id number] [facility] [place] [address] Referral ID Status Reason Start Date Expiration Date V isits Requested Visits Authorized [id number] Closed Auto-Generate d Referral 07/02/2023 07/31/2024 1 1 * Outpatient Procedure (Routine) - Authorized Specialty Diagnoses / Procedures Referred By Contac t Referred To Contact [facility] Diagnoses Chronic hepatitis C without hepatic coma (HCC) Procedures DDI VIBRATION CONTROLLED TRANSIENT ELASTOGRAPHY (VCTE) LIVER ELASTOGRAPHY W/O IMAG W/I&R Ciarra Cotton APRN.GEOLOGICAL ENGINEER [address] [place] [id number] [facility] [address] [place] [address] Referral ID Status Reason Start Date Expiration Date Visits Requested Visits Authorized [id number] Authorized Auto-Generat ed Referral 07/02/2023 07/01/2024 1 1 [facility] for visit Narrative* Diagnostic Procedure Only (Routine) - Closed Specialty Diagnoses / Procedures Referred By Contac t Referred To Contact [facility] IMAG[facility] Diagnoses Chronic hepatitis C without hepatic coma (HCC) Procedures US ABD SPLEEN US ABDOMINAL REAL TIME W/IMAGE LIMITED Yury Ciarra, FRENCH.GEOLOGICAL ENGINEER [address] [place] [id number] [facility] Referral ID Status Reason Start Date Expiration Date V isits Requested Visits Authorized [id number] Closed Auto-Generate d Referral 07/02/2023 07/31/2024 1 1 [facility] for visit Narrative* Outpatient Procedure (Routine) - Closed Specialty Diagnoses / Procedures Referred By Contac t Referred To Contact [facility] Diagnoses Chronic hepatitis C without hepatic coma (HCC) Procedures DDI VIBRATION CONTROLLED TRANSIENT ELASTOGRAPHY (VCTE) LIVER ELASTOGRAPHY W/O IMAG W/I&R Ciarra Cotton, DIRECTOR PARK.GEOLOGICAL ENGINEER [address] [place] [id number] [facility] [address] [place] [id number] Referral ID Status Reason Start Date Expiration Date V isits Requested Visits Authorized [id number] Closed Auto-Generate d Referral 07/02/2023 07/01/2024 1 1 [facility] Discharge Instructions * Attachments The following attachments cannot be sent through Care Everywhere. * Foot Sprain (Syrian) * RICE: General Info (Syrian) * Hypertension: General Info (Syrian) documented in this encounter* Attachments The following attachments cannot be sent through Care Everywhere. 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 Pt slipped in the bathroom and believes she broke her right foot again. Reason Comments Abscess left arm Reason Comments Radiology US Reason Comments New Patient Hep C Reason Onset Date Comments [facility] - [facility] 07/29/2023 [place] Submi ssion pending Reason Comments Established Patient Reason Onset Date Comments [facility]PP Hepatology - Medication Refill 08/30/2023 [facility] Reason Comments Hepatitis INFORMATION SOURCE (unrecogn ized section and content) DATE CREATED AUTHOR 11/10/2019 [facility] DATE CREATED AUTHOR AUTHOR'S ORGANIZ ATION 07/11/2023 [facility] DATE CREATED AUTHOR AUTHOR'S ORGANIZ ATION 08/25/2023 [facility] EPIC DATE CREATED AUTHOR AUTHOR'S ORGANIZ ATION 03/16/2024 [facility] Patient Care team informatio n (unrecognized section and content) Cd Manufacturing Supervisor Relationship Specialty Start Date End Date Son Oviedo MD [address] [place] [address] Referring Internal Medicine 07/01/23 Cd Manufacturing Supervisor Relationship Specialty Start Date End Date Son Oviedo MD [address] [place] [address] Referring Internal Medicine 07/01/23 Cd Manufacturing Supervisor Relationship Specialty Start Date End Date Son Oviedo MD [address] [place] [address] Referring Internal Medicine 07/01/23 Cd Manufacturing Supervisor Relationship Specialty Start Date End Date Son Oviedo MD [address] [place] [phone] Referring Internal Medicine 07/01/23 Cd Manufacturing Supervisor Relationship Specialty Start Date End Date Son Oviedo MD [address] [place] [address] [address] Referring Internal Medicine 07/01/23 Cd Manufacturing Supervisor Relationship Specialty Start Date End Date Son Oviedo MD [address] [place] [address] [address] Referring Internal Medicine 07/01/23 Source Comments (unrecognize d section and content) In the event this informatio n is protected by the Federal Confidentiality of Alcohol and Drug Abuse Patient Records regulations: The Federal rules restrict any use of the information to criminally investigate or prosecute any alcohol or drug abuse patient.[facility] the event this information is protected by the Federal Confidentiality of Alcohol and Drug Abuse Patient Records regulations: The Federal rules restrict any use of the information to criminally investigate or prosecute any alcohol or drug abuse patient.[facility] the event this information is protected by the Federal Confidentiality of Alcohol and Drug Abuse Patient Records regulations: The Federal rules restrict any use of the information to criminally investigate or prosecute any alcohol or drug abuse patient.[facility] the event this information is protected by the Federal Confidentiality of Alcohol and Drug Abuse Patient Records regulations: The Federal rules restrict any use of the information to criminally investigate or prosecute any alcohol or drug abuse patient.[facility] the event this information is protected by the Federal Confidentiality of Alcohol and Drug Abuse Patient Records regulations: The Federal rules restrict any use of the information to criminally investigate or prosecute any alcohol or drug abuse patient.[facility] Hospital[facility] the event this information is protected by the Federal Confidentiality of Alcohol and Drug Abuse Patient Records regulations: The Federal rules restrict any use of the information to criminally investigate or prosecute any alcohol or drug abuse patient.[facility] Hospital[facility] the event this information is protected by the Federal Confidentiality of Alcohol and Drug Abuse Patient Records regulations: The Federal rules restrict any use of the information to criminally investigate or prosecute any alcohol or drug abuse patient.[facility] the event this information is protected by the Federal Confidentiality of Alcohol and Drug Abuse Patient Records regulations: The Federal rules restrict any use of the information to criminally investigate or prosecute any alcohol or drug abuse patient.[facility] Hospital[facility] the event this information is protected by the Federal Confidentiality of Alcohol and Drug Abuse Patient Records regulations: The Federal rules restrict any use of the information to criminally investigate or prosecute any alcohol or drug abuse patient.[facility] FOR RECORDS PERTAINING TO PATIENTS WHO ARE OR HAVE BEEN ENROLLED IN A CHEMICAL DEPENDENCY/SUBSTANCEABUSE PROGRAM, SOME INFORMATION MAY BE OMITTED. This clinical summary was aggregated from multiple sources. Caution should be exercised in using it in the provision of clinical care. This summary normalizes information from multiple sources, and as a consequence, information in this document may materially change the coding, format and clinical context of patient data. In addition, data may be omitted in some cases. CLINICAL DECISIONS SHOULD BE BASED ON THE PRIMARY CLINICAL RECORDS. [facility] [employer] [facility]. provides no warranty or guarantee of the accuracy or completeness of information in this document.
[2024-04-19] MEDS: LIDOCAINE HCL 1% 100 MG/10 ML MDV INJ (14:37)
[2024-04-19] MEDS: BACITRACIN 0.9 GM PACKET 1 PACKET TOPICAL (14:37)
[2024-04-19] MEDS: ADACEL DIPH,PERTUSS(ACELL),TET VAC/PF 0.5 ML ADULT SYRINGE IM (14:37)
== END 2024-04-19 14:45 | disposition home or self-care (01) ==
PROVIDERS: Emergency Provider Student in an Organized Health Care Education/Training Program; Family Provider Family Medicine; PCP Nurse Practitioner Family
DX: S61.411A Laceration without foreign body of right hand, initial encounter (principal); W26.0XXA Contact with knife, initial encounter; Z23 Encounter for immunization
CPT/HCPCS: 12001; 73130; 90471; 90715; 99283